=== PATIENT | female | born 1950 | race Caucasian/White ===

== ENCOUNTER → 2020-11-03 13:04 | Outpatient (BNV) | payer MEDICARE, MEDICAID, SELFPAY | PROVIDERS: PCP Hospitalist; Visit Provider Internal Medicine | DX: Z85.3 Personal history of malignant neoplasm of breast (principal) | CPT/HCPCS: 99212; 99213; 99214; G2211 ==

== ENCOUNTER → 2020-12-24 14:19 | Outpatient (BNVA) | payer MEDICARE, MEDICAID, SELFPAY | PROVIDERS: PCP Hospitalist; Visit Provider Surgery | DX: C50.912 Malignant neoplasm of unspecified site of left female breast (principal); N60.91 Unspecified benign mammary dysplasia of right breast | CPT/HCPCS: 99212 ==

== ENCOUNTER 2021-04-17 11:55 | Outpatient (REF) | payer MEDICARE, MEDICAID, SELFPAY ==
--- NOTE | ~2021-04-17 | MM_ITS ---
EXAMINATION: MM SCREENING DIGITAL BREAST TOMOSYNTHESIS, RIGHT CLINICAL INFORMATION: Left mastectomy for breast cancer 2016. History ADH right. Due for yearly. COMPARISON: Mammography: 04/11/2020, 10/31/2018, 10/27/2017 TECHNIQUE: Digital breast tomosynthesis is performed in both the craniocaudal and mediolateral oblique views along with computer-aided detection (CAD). Synthesized 2D images are generated from the tomosynthesis. Additional right MLO view is provided. FINDINGS: There are scattered areas of fibroglandular density (ACR BI-RADS breast composition Category b). There are no significant masses, abnormal calcifications, or other abnormalities. There are 3 biopsy clip markers again seen in the right breast central and inner quadrant. There are scattered benign calcifications. No developing density. The skin contours are smooth. No significant changes. MM/MM tomosynthesis screening RT IMPRESSION: No mammographic evidence of malignancy. ASSESSMENT: BI-RADS 2: Benign RECOMMENDATION: Routine annual mammography screening. This patient's information was entered into a reminder system with a target due date for their next mammogram.
== END 2021-04-17 11:56 | disposition home or self-care (01) ==
LOC: HO.MAMMO 11:55
PROVIDERS: PCP Hospitalist; Visit Provider Surgery
DX: Z12.31 Encounter for screening mammogram for malignant neoplasm of breast (principal); Z85.3 Personal history of malignant neoplasm of breast; Z90.12 Acquired absence of left breast and nipple
CPT/HCPCS: 77063; 77067

== ENCOUNTER 2021-04-22 11:20 | Outpatient (REF) | payer MEDICARE, MEDICAID, SELFPAY ==
[2021-04-22 13:32] LABS: MANUAL DIFF FLAG NO
[2021-04-22 13:34] LABS: Basophils Absolute Auto 0.1 X10*3/uL (0.0-0.2); Eosinophils Absolute Auto 0.4 X10*3/uL (0.0-0.4); Eosinophils Percent Auto 5.4 % (0-4); Hematocrit 43.8 % (37-47); Hemoglobin 14.2 g/dl (12.0-16.0); Imm Gran Abs Auto 0.02 X10*3/uL (0.00-0.03); Imm Gran Pct Auto 0.3 % (0.0-0.4); Lymphocytes Absolute Auto 1.7 X10*3/uL (1.2-4.9); Lymphocytes Percent Auto 25.6 % (20-40); Mean Corpuscular HGB Conc 32.4 g/dl (31.0-35.0); Mean Corpuscular Volume 89.6 fL (80-98); Monocytes Absolute Auto 0.7 X10*3/uL (0.1-1.2); Neutrophils Absolute Auto 3.9 X10*3/uL (2.0-8.3); Neutrophils Percent Auto 57.7 % (45-73); Platelet Count 327 X10*3/uL (160-400); Red Blood Count 4.89 X10*6/uL (4.20-5.50); Red Cell Distribution Width 13.3 % (11.0-16.0); White Blood Count 6.7 X10*3/uL (4.8-10.8)
[2021-04-22 13:57] LABS: Alanine Aminotransferase 19 U/L (0-31); Albumin Level 4.1 g/dL (3.5-5.0); Alkaline Phosphatase 102 U/L (39-117); Anion Gap 14 (12-20); Aspartate Amino Transferase 18 U/L (5-31); Bilirubin Total 0.4 mg/dL (0.0-1.0); Blood Urea Nitrogen 17 mg/dL (9-16); Calcium 9.4 mg/dL (8.4-10.2); Carbon Dioxide 24 mmol/L (22-29); Chloride 106 mmol/L (96-108); Estimated Glomerular Filt Rate 51; Glucose Random 287 mg/dL (60-115); Potassium 4.3 mmol/L (3.3-5.1); Sodium 140 mmol/L (135-145); Total Protein 6.3 g/dL (6.5-8.0)
[2021-04-22 14:19] LABS: TSH reflex Free T4 1.45 uIU/mL (0.32-4.0)
== END 2021-04-22 11:21 | disposition home or self-care (01) ==
LOC: HO.WFDLDS 11:20
PROVIDERS: Visit Provider Family Medicine
DX: Z00.00 Encounter for general adult medical examination without abnormal findings (principal); E11.9 Type 2 diabetes mellitus without complications; I10 Essential (primary) hypertension
CPT/HCPCS: 36415; 80053; 84443; 85025

== ENCOUNTER → 2021-06-25 13:34 | Outpatient (BNVA) | payer MEDICARE, MEDICAID, SELFPAY | PROVIDERS: PCP Family Medicine; Referring Provider Family Medicine; Visit Provider Surgery ==

== ENCOUNTER 2021-07-15 10:17 | Outpatient (REF) | payer MEDICARE, MEDICAID, SELFPAY ==
--- NOTE | ~2021-07-15 | MM_ITS ---
EXAMINATION: BONE DENSITOMETRY CLINICAL INDICATION: Osteopenia. COMPARISON: None (current study represents initial baseline exam). TECHNIQUE: Using a [employer] DXA System (software version: 13.1) manufactured by [employer], dual-energy x-ray absorptiometry was performed of the lumbar spine and left hip. The images are of good technical quality. Summary results are attached. FINDINGS: AP SPINE L1-L4: BMD 0.955 g/cm2, Z-score -1.0, T-score -1.9, osteopenia, 7.7% decrease from previous, 6.6% decrease from baseline (<5% change is not significant). Prior: BMD 1.035 g/cm2. Baseline: BMD 1.022 g/cm2. LEFT FEMUR, NECK: Current: BMD 0.864 g/cm2, Z-score 0.0, T-score -1.2, osteopenia. Prior: BMD 0.858 g/cm2. Baseline: BMD 0.940 g/cm2. LEFT FEMUR, TOTAL: Current: BMD 1.028 g/cm2, Z-score 1.1, T-score 0.2, normal, 2.1% decrease from previous, 4.5% decrease from baseline (<5% change is not significant). Prior: BMD 1.050 g/cm2. Baseline: BMD 1.076 g/cm2. IDENTIFIED RISK FACTORS: Height loss, history of fracture (adult). Early menopause, secondary osteoporosis. HISTORY OF FRACTURE: Humerus/shoulder. MEDICATIONS: Calcium supplements or multivitamin, vitamin D. MM/XR DEXA axial skeleton IMPRESSION: 1. DIAGNOSIS: Osteopenia based on the lowest T-score value of -1.9 in the lumbar spine applying World Health Organization criteria. 2. 10-YEAR FRACTURE RISK PREDICTION, FRAX: Major osteoporotic fracture (clinical spine, forearm, hip or shoulder) 13.7%. Hip fracture 1.6%. 3. Treatment Recommendations: NOF guidelines recommend consideration for treatment in postmenopausal women and men age 50 and older presenting with the following: -A hip or vertebral (clinical or morphometric) fracture. -T-score less than or equal to -2.5 at the femoral neck or spine after appropriate evaluation to exclude secondary causes. -Low bone mass at the hip or spine and a 10-year fracture probability by FRAX of greater than or equal to 3% for hip fracture or greater than or equal to 20% for major osteoporotic fracture based on the [place] adapted WHO algorithm. 4. Other Recommendations: All treatment decisions require clinical judgment and consideration of individual patient factors, including patient preferences, comorbidities, previous drug use, risk factors not captured in the FRAX model (e.g. frailty, falls, vitamin D deficiency, increased bone turnover, interval significant decline in bone density) and possible under or overestimation of fracture risk by FRAX. Additional medical evaluation for secondary cause of low bone mineral density may be appropriate. FUTURE SCAN RECOMMENDATION: People with diagnosed cases of osteoporosis or at high risk for fracture should have regular bone mineral density tests. For patients eligible for Medicare, routine testing is allowed once every 2 years. The testing frequency can be increased to one year for patients who have rapidly progressing disease, those who are receiving or discontinuing medical therapy to restore bone mass, or have additional risk factors.
== END 2021-07-15 10:18 | disposition home or self-care (01) ==
LOC: HO.MAMMO 10:17
PROVIDERS: PCP Hospitalist; Visit Provider Internal Medicine
DX: Z13.820 Encounter for screening for osteoporosis (principal); M85.80 Other specified disorders of bone density and structure, unspecified site; Z78.0 Asymptomatic menopausal state; Z87.81 Personal history of (healed) traumatic fracture; Z79.899 Other long term (current) drug therapy
CPT/HCPCS: 77080

== ENCOUNTER → 2021-08-06 12:39 | Outpatient (BNVA) | payer MEDICARE, MEDICAID, SELFPAY | PROVIDERS: PCP Family Medicine; Referring Provider Family Medicine; Visit Provider Surgery | DX: C50.912 Malignant neoplasm of unspecified site of left female breast (principal); N60.91 Unspecified benign mammary dysplasia of right breast | CPT/HCPCS: 99212 ==

== ENCOUNTER 2021-12-15 11:53 | Outpatient (REF) | payer MEDICARE, MEDICAID, SELFPAY ==
[2021-12-15 13:43] LABS: Estimated Average Glucose 189 mg/dL; Hemoglobin A1c % 8.2 %
== END 2021-12-15 11:54 | disposition home or self-care (01) ==
LOC: HO.WFDLDS 11:53
PROVIDERS: Visit Provider Hospitalist
DX: Z01.818 Encounter for other preprocedural examination (principal); E11.9 Type 2 diabetes mellitus without complications
CPT/HCPCS: 36415; 83036

== ENCOUNTER 2022-04-21 10:01 | Outpatient (REF) | payer MEDICARE, MEDICAID, SELFPAY ==
--- NOTE | ~2022-04-21 | MM_ITS ---
EXAMINATION: MM SCREENING DIGITAL BREAST TOMOSYNTHESIS, RIGHT CLINICAL INFORMATION: Left breast cancer status post mastectomy, 2016. History contralateral right ADH. COMPARISON: Mammography: 04/17/2021, 04/11/2020, 10/31/2018, 10/27/2017 TECHNIQUE: Digital breast tomosynthesis is performed in both the craniocaudal and mediolateral oblique views along with computer-aided detection (CAD). Synthesized 2D images are generated from the tomosynthesis. Additional right MLO view is provided. FINDINGS: There are scattered areas of fibroglandular density (ACR BI-RADS breast composition Category b). There are no significant masses, abnormal calcifications, or other abnormalities. Parenchymal pattern is similar to prior studies. There are 3 biopsy clip markers again seen in the right breast. The right axillary and skin contours are unremarkable. There are no significant changes. MM/MM tomosynthesis screening RT IMPRESSION: No mammographic evidence of malignancy. ASSESSMENT: BI-RADS 1: Negative RECOMMENDATION: Routine annual mammography screening. This patient's information was entered into a reminder system with a target due date for their next mammogram.
== END 2022-04-21 10:02 | disposition home or self-care (01) ==
LOC: HO.MAMMO 10:01
PROVIDERS: Absent Provider Surgery; Visit Provider Hospitalist
DX: Z12.31 Encounter for screening mammogram for malignant neoplasm of breast (principal)
CPT/HCPCS: 77063; 77067

== ENCOUNTER → 2022-05-14 10:09 | Outpatient (BNVA) | payer MEDICARE, MEDICAID, SELFPAY | PROVIDERS: PCP Hospitalist; Visit Provider Surgery | DX: Z85.3 Personal history of malignant neoplasm of breast (principal); K43.2 Incisional hernia without obstruction or gangrene; Z90.12 Acquired absence of left breast and nipple | CPT/HCPCS: 99212 ==

== ENCOUNTER 2022-05-21 07:58 | Outpatient (REF) | payer MEDICARE, MEDICAID, SELFPAY ==
--- NOTE | ~2022-05-21 | CT_ITS ---
EXAMINATION: CT ABDOMEN AND PELVIS WITHOUT CONTRAST CLINICAL INFORMATION: Incisional hernia without gangrene or obstruction COMPARISON: None TECHNIQUE: Multidetector volumetric imaging was performed from the superior aspect of the liver through the pubic symphysis. Sagittal and coronal reformatted images were obtained on the technologist's workstation. This CT examination was performed using dose optimization techniques as appropriate, variously including the following: *Automated exposure control *Adjustment of mA and/or kV according to patient size (this includes techniques or standardized protocols for targeted exams where dose is matched to indication/reason for exam; i.e. extremities or head) *Use of iterative reconstruction technique DLP: 716 mGy-cm FINDINGS: LUNG BASES: The visualized lung bases are unremarkable. LIVER, GALLBLADDER, AND BILIARY TREE: The liver is normal in size, shape, and attenuation. No focal hepatic lesion or biliary ductal dilatation is present. The gallbladder is unremarkable with no evidence of radiopaque gallstones, gallbladder wall thickening, or obvious pericholecystic inflammatory changes. PANCREAS: Unremarkable. SPLEEN: Unremarkable. ADRENAL GLANDS: Unremarkable. KIDNEYS AND URETERS: There is a small stone in the left kidney. Kidneys are otherwise normal. BLADDER: Unremarkable. GASTROINTESTINAL TRACT: There are small and large bowel in a large midline ventral hernia. There are postsurgical changes to the sigmoid colon. The small and large bowel are otherwise unremarkable. The appendix is unremarkable. ABDOMINAL WALL: There is diastasis of the rectus muscles and large broad-based midline ventral hernia containing multiple loops of small and large bowel and fat. This measures 22 x 9 x 13 cm in longitudinal AP and transverse dimension. This has a wide neck neck measures 13 cm. There is no evidence of obstruction. LYMPH NODES: Normal. VASCULAR: Unremarkable. PELVIC VISCERA: Unremarkable. OSSEOUS STRUCTURES: There are degenerative changes of the thoracic and lumbar spine and mild scoliosis. CT/CT abdomen pelvis wo con IMPRESSION: Large complex ventral hernia containing loops of small and large bowel. No evidence of obstruction. . Small nonobstructing right renal stone. Fleischner guidelines were followed.
[2022-05-21] MEDS: Barium Sulfate Oral (Vanilla) 450 ML ORAL.SUSP 900 ML PO (10:14)
== END 2022-05-21 07:59 | disposition home or self-care (01) ==
LOC: HO.CT 07:58
PROVIDERS: Visit Provider Surgery
DX: K43.2 Incisional hernia without obstruction or gangrene (principal)
CPT/HCPCS: 74176

== ENCOUNTER → 2022-05-26 08:50 | Outpatient (BNVA) | payer MEDICARE, MEDICAID, SELFPAY | PROVIDERS: PCP Hospitalist; Visit Provider Internal Medicine Rheumatology | DX: M19.079 Primary osteoarthritis, unspecified ankle and foot (principal); M79.641 Pain in right hand; M79.642 Pain in left hand; M25.50 Pain in unspecified joint | CPT/HCPCS: 99202 ==

== ENCOUNTER 2022-05-27 09:23 | Outpatient (REF) | payer MEDICARE, MEDICAID, SELFPAY ==
--- NOTE | ~2022-05-27 | XR_ITS ---
EXAMINATION: XR HAND, RIGHT XR HAND, LEFT XR FOOT, RIGHT XR FOOT, LEFT CLINICAL INFORMATION: Pain from arthritis. COMPARISON: 09/23/2017 TECHNIQUE: 3 views of the left hand, right hand, left foot, and right foot. FINDINGS: Left Hand: There is no evidence of acute fracture or dislocation of the left hand. There is some joint space narrowing seen involving the fifth proximal interphalangeal joint with sclerosis. There appears to be a small cyst within the distal first phalanx. There is degenerative change of the first carpal metacarpal joint with prominent spurring and some articular irregularity. The metacarpophalangeal joints are maintained. There is some mild spurring seen involving the second and third distal interphalangeal joints. Right Hand: There is some narrowing of the fifth proximal interphalangeal joint. No acute fracture or dislocation is evident. Right Foot: There is no evidence of acute fracture or dislocation of the right foot. No destructive bony lesions are identified. No erosive change is seen. There is a small plantar calcaneal spur. Left Foot: There is no evidence of acute fracture or dislocation of the left foot. There is severe degenerative change of the first metatarsophalangeal joint with loss of joint space and articular deformity and subchondral cyst formation. There is mild hallux valgus angulation. There is a plantar calcaneal spur present. XR/XR hand RT min 3V IMPRESSION: Mild degenerative change of the hands and right foot as described above. Significant degenerative change of the left first tarsometatarsal joint. Severe degenerative change with deformity involving the left first metatarsophalangeal joint.
--- NOTE | ~2022-05-27 | XR_ITS ---
EXAMINATION: XR HAND, RIGHT XR HAND, LEFT XR FOOT, RIGHT XR FOOT, LEFT CLINICAL INFORMATION: Pain from arthritis. COMPARISON: 09/23/2017 TECHNIQUE: 3 views of the left hand, right hand, left foot, and right foot. FINDINGS: Left Hand: There is no evidence of acute fracture or dislocation of the left hand. There is some joint space narrowing seen involving the fifth proximal interphalangeal joint with sclerosis. There appears to be a small cyst within the distal first phalanx. There is degenerative change of the first carpal metacarpal joint with prominent spurring and some articular irregularity. The metacarpophalangeal joints are maintained. There is some mild spurring seen involving the second and third distal interphalangeal joints. Right Hand: There is some narrowing of the fifth proximal interphalangeal joint. No acute fracture or dislocation is evident. Right Foot: There is no evidence of acute fracture or dislocation of the right foot. No destructive bony lesions are identified. No erosive change is seen. There is a small plantar calcaneal spur. Left Foot: There is no evidence of acute fracture or dislocation of the left foot. There is severe degenerative change of the first metatarsophalangeal joint with loss of joint space and articular deformity and subchondral cyst formation. There is mild hallux valgus angulation. There is a plantar calcaneal spur present. XR/XR hand LT min 3V IMPRESSION: Mild degenerative change of the hands and right foot as described above. Significant degenerative change of the left first tarsometatarsal joint. Severe degenerative change with deformity involving the left first metatarsophalangeal joint.
--- NOTE | ~2022-05-27 | XR_ITS ---
EXAMINATION: XR HAND, RIGHT XR HAND, LEFT XR FOOT, RIGHT XR FOOT, LEFT CLINICAL INFORMATION: Pain from arthritis. COMPARISON: 09/23/2017 TECHNIQUE: 3 views of the left hand, right hand, left foot, and right foot. FINDINGS: Left Hand: There is no evidence of acute fracture or dislocation of the left hand. There is some joint space narrowing seen involving the fifth proximal interphalangeal joint with sclerosis. There appears to be a small cyst within the distal first phalanx. There is degenerative change of the first carpal metacarpal joint with prominent spurring and some articular irregularity. The metacarpophalangeal joints are maintained. There is some mild spurring seen involving the second and third distal interphalangeal joints. Right Hand: There is some narrowing of the fifth proximal interphalangeal joint. No acute fracture or dislocation is evident. Right Foot: There is no evidence of acute fracture or dislocation of the right foot. No destructive bony lesions are identified. No erosive change is seen. There is a small plantar calcaneal spur. Left Foot: There is no evidence of acute fracture or dislocation of the left foot. There is severe degenerative change of the first metatarsophalangeal joint with loss of joint space and articular deformity and subchondral cyst formation. There is mild hallux valgus angulation. There is a plantar calcaneal spur present. XR/XR foot LT min 3V IMPRESSION: Mild degenerative change of the hands and right foot as described above. Significant degenerative change of the left first tarsometatarsal joint. Severe degenerative change with deformity involving the left first metatarsophalangeal joint.
--- NOTE | ~2022-05-27 | XR_ITS ---
EXAMINATION: XR HAND, RIGHT XR HAND, LEFT XR FOOT, RIGHT XR FOOT, LEFT CLINICAL INFORMATION: Pain from arthritis. COMPARISON: 09/23/2017 TECHNIQUE: 3 views of the left hand, right hand, left foot, and right foot. FINDINGS: Left Hand: There is no evidence of acute fracture or dislocation of the left hand. There is some joint space narrowing seen involving the fifth proximal interphalangeal joint with sclerosis. There appears to be a small cyst within the distal first phalanx. There is degenerative change of the first carpal metacarpal joint with prominent spurring and some articular irregularity. The metacarpophalangeal joints are maintained. There is some mild spurring seen involving the second and third distal interphalangeal joints. Right Hand: There is some narrowing of the fifth proximal interphalangeal joint. No acute fracture or dislocation is evident. Right Foot: There is no evidence of acute fracture or dislocation of the right foot. No destructive bony lesions are identified. No erosive change is seen. There is a small plantar calcaneal spur. Left Foot: There is no evidence of acute fracture or dislocation of the left foot. There is severe degenerative change of the first metatarsophalangeal joint with loss of joint space and articular deformity and subchondral cyst formation. There is mild hallux valgus angulation. There is a plantar calcaneal spur present. XR/XR foot RT min 3V IMPRESSION: Mild degenerative change of the hands and right foot as described above. Significant degenerative change of the left first tarsometatarsal joint. Severe degenerative change with deformity involving the left first metatarsophalangeal joint.
[2022-05-27 10:45] LABS: C Reactive Protein 0.61 mg/dL (< or = 0.50)
[2022-05-27 10:48] LABS: Uric Acid 4.3 mg/dL (2.4-5.7)
== END 2022-05-27 09:24 | disposition home or self-care (01) ==
LOC: HO.LAB 09:23
PROVIDERS: PCP Hospitalist; Visit Provider Internal Medicine Rheumatology
DX: M79.642 Pain in left hand (principal); M79.641 Pain in right hand; M19.071 Primary osteoarthritis, right ankle and foot; M19.072 Primary osteoarthritis, left ankle and foot
CPT/HCPCS: 36415; 73130; 73630; 84550; 86140; 99212

== ENCOUNTER → 2022-07-06 14:08 | Outpatient (BNVA) | payer MEDICARE, MEDICAID, SELFPAY | PROVIDERS: PCP Hospitalist; Visit Provider Internal Medicine | DX: Z01.818 Encounter for other preprocedural examination (principal) | CPT/HCPCS: 94010; 99202 ==

== ENCOUNTER 2023-03-25 05:35 | Observation (INO) | payer MEDICARE, MEDICAID, SELFPAY ==
[2023-03-25] VITALS (9 sets, daily range): BP systolic 113–141; BP diastolic 52–93; PULSE 69–89; RESP 15–18; TEMP 36.1–36.7; O2SAT 93–98; BMI 39.5
--- NOTE | ~2023-03-25 | CT_ITS ---
EXAMINATION: CT ABDOMEN AND PELVIS WITH CONTRAST CLINICAL INFORMATION: Left lower quadrant pain COMPARISON: 05/21/2022 TECHNIQUE: Multidetector volumetric images were obtained from the superior aspect of the liver through the pubic symphysis following administration 85 mL of Omnipaque 350 intravenous contrast. Sagittal and coronal reformatted images were obtained on the technologist's workstation. Oral contrast: No This CT examination was performed using dose optimization techniques as appropriate, variously including the following: *Automated exposure control *Adjustment of mA and/or kV according to patient size (this includes techniques or standardized protocols for targeted exams where dose is matched to indication/reason for exam; i.e. extremities or head) *Use of iterative reconstruction technique DLP: 645 mGy-cm FINDINGS: LUNG BASES: The visualized lung bases are unremarkable. LIVER, GALLBLADDER, AND BILIARY TREE: The liver is normal in size, shape, and attenuation. No focal hepatic lesion or biliary ductal dilatation is present. The gallbladder is unremarkable with no evidence of radiopaque gallstones, gallbladder wall thickening, or obvious pericholecystic inflammatory changes. PANCREAS: Unremarkable. SPLEEN: Unremarkable. ADRENAL GLANDS: Unremarkable. KIDNEYS AND URETERS: There is punctate calcification in upper pole of but no hydronephrosis or mass is seen. The right kidney is unremarkable. Collecting system of left kidney BLADDER: Unremarkable. GASTROINTESTINAL TRACT: There is small hiatal hernia. There is large amount of liquid stool in the colon particularly resulting in diarrhea. Small bowel loops are mildly distended by fluid as well. There is no wall thickening. There is large ventral hernia with herniation of significant amount of small bowel loops without incarceration. There is dehiscence of rectus muscle with multiple herniations along the midline. Appendix is unremarkable and lower abdominal wall hernia contain fat only. Sigmoidal anastomosis is unremarkable. LYMPH NODES: Normal. VASCULAR: Unremarkable. PELVIC VISCERA: Calcifications seen in otherwise unremarkable uterus. Bilateral adnexa are visualized, normal. OSSEOUS STRUCTURES: There are multilevel degenerative changes in lumbar spine and lower thoracic spine. There is mild levoscoliosis of lumbar spine CT/CT abdomen pelvis w IV con IMPRESSION: Large ventral hernia with herniation of small bowel loops without incarceration. Possibly enterocolitis with large amount of liquid stool in the colon and small bowel Small hiatal hernia Left nephrolithiasis Fleischner guidelines were followed.
[2023-03-25 06:08] LABS: MANUAL DIFF FLAG NO
[2023-03-25 06:29] LABS: Basophils Percent Auto 0.4 % (0-2); Eosinophils Absolute Auto 0.1 X10*3/uL (0.0-0.4); Eosinophils Percent Auto 0.6 % (0-4); Hematocrit 46.1 % (37.0-47.0); Hemoglobin 15.5 g/dl (12.0-16.0); Imm Gran Abs Auto 0.12 X10*3/uL (0.00-0.03); Imm Gran Pct Auto 1.2 % (0.0-0.4); Lymphocytes Absolute Auto 0.6 X10*3/uL (1.2-4.9); Lymphocytes Percent Auto 6.6 % (20-40); Mean Corpuscular HGB Conc 33.6 g/dl (31.0-35.0); Mean Corpuscular Hemoglobin 29.8 pg (27.0-33.0); Mean Corpuscular Volume 88.5 fL (80.0-98.0); Mean Platelet Volume 9.8 fL (9.4-12.3); Monocytes Absolute Auto 0.8 X10*3/uL (0.1-1.2); Monocytes Percent Auto 8.5 % (2-11); Neutrophils Absolute Auto 8.1 x10*3/uL (2.0-8.3); Neutrophils Percent Auto 82.7 % (45-73); Platelet Count 370 X10*3/uL (160-400); Red Blood Count 5.21 X10*6/uL (4.20-5.50); Red Cell Distribution Width 13.8 % (11.0-16.0); White Blood Count 9.8 X10*3/uL (4.8-10.8)
[2023-03-25 06:42] LABS: Alanine Aminotransferase 20 U/L (0-31); Albumin Level 3.9 g/dL (3.5-5.0); Alkaline Phosphatase 60 U/L (39-117); Anion Gap 16 (12-20); Aspartate Amino Transferase 21 U/L (5-31); Bilirubin Direct 0.2 mg/dL (0.0-0.5); Bilirubin Total 0.4 mg/dL (0.0-1.0); Blood Urea Nitrogen 19 mg/dL (9-16); Calcium 9.1 mg/dL (8.4-10.2); Carbon Dioxide 20 mmol/L (22-29); Chloride 109 mmol/L (96-108); Creatinine Clr Calc Pharmacy 72.9; Estimated Glomerular Filt Rate > 60; Glucose Random 148 mg/dL (60-115); Lipase 7 U/L (8-78); Potassium 3.6 mmol/L (3.3-5.1); Sodium 141 mmol/L (135-145); Total Protein 6.3 g/dL (6.5-8.0)
[2023-03-25] MEDS: 0.9 % Sodium Chloride 1,000 ML 999 ML IV ×2 (06:50→09:01)
[2023-03-25] MEDS: ondansetron HCL 4 MG/2 ML VIAL IVPUSH (06:51)
--- NOTE | 2023-03-25 06:51 | ED.GENADULT ---
HPI - General Adult General Chief complaint: Nausea/Vomiting/Diarrhea Stated complaint: Vomiting Time Seen by Provider: 03/25/23 06:39 Source: patient Mode of arrival: ambulatory Limitations: no limitations History of Present Illness HPI narrative: This is a 72-year-old female presenting to the emergency department for evaluation nausea, vomiting, diarrhea, left lower quadrant abdominal pain, fever, chills since Tuesday, 3 days ago. Patient tells me she has not been able to eat or drink anything each time she tries to eat or drink she throws up or has an episode of diarrhea. Patient tells me she is worried because she is a diabetic. Related Data Home Medications Medication Instructions Recorded Confirmed escitalopram oxalate 20 mg tablet 20 mg PO DAILY 08/27/20 05/26/22 (Lexapro) bupropion HCl 300 mg 24 hr tablet, 300 mg PO DAILY 12/24/20 05/26/22 extended release quetiapine 300 mg tablet,extended 300 mg PO BEDTIME 04/22/21 05/26/22 release 24 hr erythromycin 5 mg/gram (0.5 %) eye 0 mg ophthalmic (eye) 04/08/22 05/26/22 ointment Previous Rx's Medication Instructions Recorded buspirone 10 mg tablet 20 mg PO BID #120 tabs 08/11/20 vitamins A,C,E-uinm-juliue 4,296 1 cap PO BID #60 caps 08/11/20 mcg-226 mg-90 mg capsule (PreserVision AREDS) latanoprost 0.005 % eye drops 1 drp ophthalmic (eye) BEDTIME 08/14/21 #2.5 mL inhalational spacing device #1 ea 10/05/21 (Aerochamber MV spacer) blood pressure test kit-large #1 ea 10/12/21 (Advocate Blood Pressure Monitor kit) blood sugar diagnostic (FreeStyle #100 ea 04/04/22 Lite Strips) amlodipine 2.5 mg tablet 2.5 mg PO DAILY 3 months #90 tabs 05/19/22 lancets 28 gauge (FreeStyle ##100 05/19/22 Lancets) levothyroxine 50 mcg tablet 50 mcg PO DAILY #90 tabs 05/19/22 pen needle, diabetic 31 gauge x See Rx Instructions subcut BID-TID 05/19/2202/22 (BD Ultra-Fine Short Pen #100 ea Needle) rosuvastatin 20 mg tablet 20 mg PO DAILY #90 tabs 10/05/22 insulin glargine 100 unit/mL (3 10 unit (0.1 mL) subcut DAILY 3 11/29/22 mL) subcutaneous pen (Lantus months #9 mL Solostar U-100 Insulin) Basaglar KwikPen U-100 Insulin 100 34 unit (0.34 mL) subcut QPM 3 11/30/22 unit/mL (3 mL) subcutaneous months #15 mL (insulin glargine) Ventolin HFA 90 mcg/actuation 1 puff PO Q4H PRN for wheezing #18 12/09/22 aerosol inhaler (albuterol sulfate) grams fenofibrate 160 mg tablet 160 mg PO DAILY #90 tabs 12/20/22 repaglinide 2 mg tablet 2 mg PO BID #180 tabs 01/19/23 omeprazole 40 mg capsule,delayed 40 mg PO DAILY #42 caps 03/01/23 release Allergies Allergy/AdvReac Type Severity Reaction Status Date / Time ether [ETHER] Allergy Severe DIFFICULT Verified 11/29/22 10:07 EMERGENCE ANESTHESIA codeine [CODEINE] Allergy Intermediate VOMITING Verified 11/29/22 10:07 Review of Systems Review of Systems: Constitutional : No Weight loss, + Fever, + Chills, + Fatigue, + Malaise ENT/Mouth : No sore throat, No Rhinorrhea Eyes: No Eye Pain, No Swelling, No Redness Cardiovascular : No Chest Pain, No SOB, No Dyspnea on Exertion, No Orthopnea, No Edema, No Palpitations Respiratory : No Cough, No Sputum, No Wheezing Gastrointestinal : + Nausea, + Vomiting, + Diarrhea, No Constipation, + abdominal Pain, No Hematochezia, No Melena Genitourinary : No Dysuria, No Urinary Frequency, No Hematuria, Musculoskeletal : No joint pain, No Myalgias, No Joint Swelling Skin : No Skin Lesions, No rash Neuro : No Weakness, No Numbness, No Dizziness, No Headache Psych : No Anxiety/Panic, No Depression All other systems reviewed and are negative Yes all other systems are reviewed and are negative PMFSH Past Medical History Attestation statement: The following information was validated with the patient. Source: old records reviewed and nursing notes reviewed Medical History Cataract, right eye Dyspnea on exertion Pre-op evaluation Primary generalized (osteo)arthritis Tubular adenoma of colon Surgical History History of section History of mastectomy S/P colon resection Family History Family History Father No problems noted. Mother No problems noted. Social History Social History Household Members: Children [facility] Are you a primary early breastfeeding care specialist to a significant other at home: No Do you presently have visiting nurse or other home services: No Patient Tobacco Use Status: Never used Tobacco Smoked in Last 30 Days: No e-Cigarette/Vaping Use: Never Used Second Hand Smoke Exposure: No Use of substances other than those prescribed or required for medical reasons: No Advance Directives: No Advance Directives Information Provided: No service: No Current occupational status: retired Current occupation: Medical billing Current occupational exposures/hazards: No Cognitive needs: No Hearing needs: No Vision needs: No Physical Exam ED Vital Signs: Vital Signs - 24 hr 03/25/23 05:39 03/25/23 07:25 03/25/23 09:02 Temperature 97.9 F Pulse Rate 89 72 72 Respiratory Rate 18 18 17 Blood Pressure 141/93 H 126/60 113/88 Pulse Oximetry 97 98 97 Oxygen Delivery Method Room Air Room Air Room Air BMI result Body Mass Index 39.5 vss Appearance: Alert.? Oriented X3.? No acute distress.? Head: Normocephalic, atraumatic, no step-offs or deformities Eyes: Pupils equal, round and reactive to light.? Neck: Normal inspection.? Neck supple.? CVS: Normal heart rate and rhythm.? Pulses normal.? Respiratory: No respiratory distress.? Breath sounds normal.? Abdomen: Soft and nontender.? Skin: Skin warm and dry.? Normal skin color.? Normal skin turgor.? Extremities: No lower extremity edema.? No calf ttp. 5/5 strength to bilateral upper and lower extremities Neuro: Oriented X 3.? No motor deficit.? No sensory deficit. CN 2-12 intact Course Reevaluation(s) Reevaluation #1: CBC appears to be within normal limits. Chemistry with elevated BUN likely secondary to poor p.o. intake. Random glucose 148, normal lipase. Beta hydroxybutyrate pending, VBG normal unlikely that this is DKA. CT of the abdomen pelvis with large ventral hernia with herniation of small bowel loops without incarceration, no tenderness to palpation overlying this area, low suspicion for incarceration. Possible enterocolitis with large amount of liquid stool in the colon and small bowel. Stool studies pending, patient has not given us a stool sample, metronidazole ordered. Small hiatal hernia noted. Left nephrolithiasis. No signs of acute pyelonephritis. Urine pending, straight cath ordered. Patient not tolerating p.o., she did have crackers however front nauseous and required Zofran afterwards. Receiving IV hydration, plan is for hospital admission. Time: 10:12 Medications Administered Generic Name Dose Route Start Last Admin Trade Name Freq PRN Reason Stop Dose Admin Metronidazole 500 mg in 100 mls @ 100 mls/hr 03/25/23 09:21 03/25/23 09:30 Flagyl IV 03/25/23 10:20 100 mls/hr ONCE ONE Administration Discontinued Medications Generic Name Dose Route Start Last Admin Trade Name Freq PRN Reason Stop Dose Admin Sodium Chloride 1,000 mls @ 999 mls/hr 03/25/23 06:45 03/25/23 07:55 Ns IV 03/25/23 07:45 Infused .Q1H1M MEKA Infusion Sodium Chloride 1,000 mls @ 999 mls/hr 03/25/23 09:00 03/25/23 09:01 Ns IV 03/25/23 10:00 999 mls/hr .Q1H1M MEKA Administration Iohexol 85 ml 03/25/23 07:33 03/25/23 07:34 Iohexol 350 Mg/Ml 100 Ml Infus..Btl IV 03/25/23 07:34 85 ml ONCE ONE Administration Metoclopramide HCl 10 mg 03/25/23 09:26 03/25/23 09:32 Metoclopramide Hcl 10 Mg/2 Ml Vial IVPUSH 03/25/23 09:27 10 mg ONCE ONE Administration Ondansetron HCl 4 mg 03/25/23 06:45 03/25/23 06:51 Ondansetron Hcl 4 Mg/2 Ml Vial IVPUSH 03/25/23 06:46 4 mg ONCE ONE Administration Medical Decision Making Medical Decision Making [facility] Narrative: 1855 72-year-old female presents with nausea, vomiting, diarrhea, fevers, chills, left lower quadrant abdominal pain since Tuesday, 3 days ago. Patient diabetic Physical exam of left lower quadrant tenderness on palpation. Likely viral illness however will rule out diverticulitis. Unlikely diabetic ketoacidosis, acute abdomen, small or large bowel obstruction, mesenteric ischemia. Diarrhea likely viral unlikely Clostridium difficile Plan- labs, imaging, urine. Will give fluids, Zofran. Differential Diagnosis Differential Diagnoses: The differential diagnosis associated with the presentation includes Likely viral illness however will rule out diverticulitis. Unlikely diabetic ketoacidosis, acute abdomen, small or large bowel obstruction, mesenteric ischemia. Diarrhea likely viral unlikely Clostridium difficile Admission/Observation Consideration of admission/observation: Escalation of care including admission/observation considered unlikely Lab Data [facility] Lab Attestation statement: I reviewed the patient's lab results. 03/25/23 05:58 03/25/23 06:21 Labs: Lab Results 03/25/23 03/25/23 03/25/23 Range/Units 05:58 06:21 07:02 WBC 9.8 (4.8-10.8) X10*3/uL RBC 5.21 (4.20-5.50) X10*6/uL Hgb 15.5 (12.0-16.0) g/dl Hct 46.1 (37.0-47.0) % MCV 88.5 (80.0-98.0) fL MCH 29.8 (27.0-33.0) pg MCHC 33.6 (31.0-35.0) g/dl RDW 13.8 (11.0-16.0) % Plt Count 370 (160-400) X10*3/uL MPV 9.8 (9.4-12.3) fL Immature Gran % (Auto) 1.2 H (0.0-0.4) % Neut % (Auto) 82.7 H (45-73) % Lymph % (Auto) 6.6 L (20-40) % [place] % (Auto) 8.5 (2-11) % Eos % (Auto) 0.6 (0-4) % Baso % (Auto) 0.4 (0-2) % Lymph # (Auto) 0.6 L (1.2-4.9) X10*3/uL [place] # (Auto) 0.8 (0.1-1.2) X10*3/uL Eos # (Auto) 0.1 (0.0-0.4) X10*3/uL Baso # (Auto) 0.0 (0.0-0.2) X10*3/uL Abs Immat Gran (auto) 0.12 H (0.00-0.03) X10*3/uL Absolute Neuts (auto) 8.1 (2.0-8.3) x10*3/uL Absolute Nucleated RBC 0.000 (0.0-0.012) X10*3/uL Nucleated RBC % (auto) 0.0 (0.0-0.2) /100WBC VBG pH (7.32-7.43) VBG pCO2 mmHg VBG pO2 mmHg VBG HCO3 (22-26) mmol/L VBG O2 Saturation % VBG Base Excess mmol/L Sodium 141 (135-145) mmol/L Potassium 3.6 (3.3-5.1) mmol/L Chloride 109 H (96-108) mmol/L Carbon Dioxide 20 L (22-29) mmol/L Anion Gap 16 (12-20) BUN 19 H (9-16) mg/dL Creatinine 0.82 (0.5-1.4) mg/dL Estim Creat Clear Calc 72.9 Estimated GFR > 60 Random Glucose 148 H (60-115) mg/dL Lactic Acid 1.6 (0.5-2.0) mmol/L Calcium 9.1 (8.4-10.2) mg/dL Total Bilirubin 0.4 (0.0-1.0) mg/dL Direct Bilirubin 0.2 (0.0-0.5) mg/dL AST 21 (5-31) U/L ALT 20 (0-31) U/L Alkaline Phosphatase 60 (39-117) U/L Total Protein 6.3 L (6.5-8.0) g/dL Albumin 3.9 (3.5-5.0) g/dL Lipase 7 L (8-78) U/L 06/16/23 Range/Units 07:46 WBC (4.8-10.8) X10*3/uL RBC (4.20-5.50) X10*6/uL Hgb (12.0-16.0) g/dl Hct (37.0-47.0) % MCV (80.0-98.0) fL MCH (27.0-33.0) pg MCHC (31.0-35.0) g/dl RDW (11.0-16.0) % Plt Count (160-400) X10*3/uL MPV (9.4-12.3) fL Immature Gran % (Auto) (0.0-0.4) % Neut % (Auto) (45-73) % Lymph % (Auto) (20-40) % [place] % (Auto) (2-11) % Eos % (Auto) (0-4) % Baso % (Auto) (0-2) % Lymph # (Auto) (1.2-4.9) X10*3/uL [place] # (Auto) (0.1-1.2) X10*3/uL Eos # (Auto) (0.0-0.4) X10*3/uL Baso # (Auto) (0.0-0.2) X10*3/uL Abs Immat Gran (auto) (0.00-0.03) X10*3/uL Absolute Neuts (auto) (2.0-8.3) x10*3/uL Absolute Nucleated RBC (0.0-0.012) X10*3/uL Nucleated RBC % (auto) (0.0-0.2) /100WBC VBG pH 7.33 (7.32-7.43) VBG pCO2 49 mmHg VBG pO2 25 mmHg VBG HCO3 26 (22-26) mmol/L VBG O2 Saturation < 30.0 % VBG Base Excess 0.4 mmol/L Sodium (135-145) mmol/L Potassium (3.3-5.1) mmol/L Chloride (96-108) mmol/L Carbon Dioxide (22-29) mmol/L Anion Gap (12-20) BUN (9-16) mg/dL Creatinine (0.5-1.4) mg/dL Estim Creat Clear Calc Estimated GFR Random Glucose (60-115) mg/dL Lactic Acid (0.5-2.0) mmol/L Calcium (8.4-10.2) mg/dL Total Bilirubin (0.0-1.0) mg/dL Direct Bilirubin (0.0-0.5) mg/dL AST (5-31) U/L ALT (0-31) U/L Alkaline Phosphatase (39-117) U/L Total Protein (6.5-8.0) g/dL Albumin (3.5-5.0) g/dL Lipase (8-78) U/L Independent Interpretation I performed an independent interpretation of an: CT Scan Radiology Impression Discussion of test interpretation with radiology: I have reviewed the radiologist's reading. Core Measures AMI core measures followed: Yes Measure exclusions: not indicated Critical Care Time Critical Care Time Critical Care Time: No Discharge Plan Discharge Clinical Impression: Diarrhea, Enterocolitis, Ventral hernia Patient Disposition: Still a Patient Prescriptions: No Action PreserVision AREDS [id number] capsule 1 cap PO BID Qty: 60 0RF buspirone 10 mg tablet 20 mg PO BID Qty: 120 0RF latanoprost 0.005 % drops 1 drp ophthalmic (eye) BEDTIME Qty: 2.5 3RF (DME) Aerochamber MV Spacer See Rx Instructions .Route Qty: 1 0RF Rx Instructions: As directed (DME) FreeStyle Lite Strips Strip See Rx Instructions .ROUTE .MEDSUPPLY Qty: 100 12RF Rx Instructions: As directed to test blood glucose 3x daily (DME) lancets [FreeStyle Lancets] 28 gauge misc See Rx Instructions .ROUTE .COMPLEX Qty: 100 11RF Dose Instruction: USE DIRECTED 3 TIMES A DAY Rx Instructions: USE DIRECTED 3 TIMES A DAY levothyroxine 50 mcg tablet 50 mcg PO DAILY Qty: 90 1RF pen needle, diabetic [BD Ultra-Fine Short Pen Needle] 31 gauge x 5/16 needle See Rx Instructions subcut BID-TID Qty: 100 11RF Rx Instructions: subcut 2 to 3 times a day; amlodipine 2.5 mg tablet 2.5 mg PO DAILY 90 Days Qty: 90 3RF rosuvastatin 20 mg tablet 20 mg PO DAILY Qty: 90 2RF insulin glargine [Lantus Solostar U-100 Insulin] 100 unit/mL (3 mL) insulin pen 10 unit subcut DAILY 90 Days Qty: 9 2RF insulin glargine [Basaglar KwikPen U-100 Insulin] 100 unit/mL (3 mL) insulin pen 34 unit subcut QPM 90 Days Qty: 15 3RF albuterol sulfate [Ventolin HFA] 90 mcg/actuation HFA aerosol inhaler 1 puff PO Q4H PRN (Reason: for wheezing) Qty: 18 5RF fenofibrate 160 mg tablet 160 mg PO DAILY Qty: 90 1RF repaglinide 2 mg tablet 2 mg PO BID Qty: 180 1RF omeprazole 40 mg capsule,delayed release(DR/EC) 40 mg PO DAILY Qty: 42 3RF escitalopram oxalate [Lexapro] 20 mg tablet 20 mg PO DAILY quetiapine 300 mg tablet extended release 24 hr 300 mg PO BEDTIME (DME) blood pressure test kit-large [Advocate Blood Pressure Monitr] Kit See Rx Instructions .Route Qty: 1 0RF Rx Instructions: As directed erythromycin 5 mg/gram (0.5 %) ointment 0 mg ophthalmic (eye) bupropion HCl 300 mg tablet extended release 24 hr 300 mg PO DAILY
[2023-03-25 07:26] LABS: Lactic Acid 1.6 mmol/L (0.5-2.0)
[2023-03-25] MEDS: iohexoL 350 MG/ML 100 ML INFUS..BTL 85 ML IV (07:34)
[2023-03-25 07:54] LABS: Venous Blood Gas Refer to POC result
[2023-03-25 07:54] LABS: VBG Base Excess 0.4 mmol/L; VBG HCO3 26 mmol/L (22-26); VBG O2 % Saturation < 30.0 %; VBG pCO2 49 mmHg; VBG pH 7.33 (7.32-7.43); VBG pO2 25 mmHg
[2023-03-25 08:06] LABS: Beta-Hydroxybutyrate 0.16 mmol/L (0.02-0.027)
[2023-03-25] MEDS: metroNIDAZOLE/NS 500 MG/100 ML PIGGYBACK 100 MG IV (09:30)
[2023-03-25] MEDS: Metoclopramide HCl 10 MG/2 ML VIAL IVPUSH (09:32)
--- NOTE | 2023-03-25 11:11 | PM.IMHP ---
History of Present Illness Date of Service: 03/25/23 Attending physician on admission: César Tolbert Chief Complaint: Nausea, vomiting, diarrhea Pt is a 72-year-old female with a PMH significant for? HLD, HTN, GERD, hypothyroidism, insulin-dependent diabetes, hx of invasive ductal carcinoma of left breast, bipolar disorder, and ruptured colon in 2001 with 3-foot resection who presents to the ED with?nausea, vomiting, and diarrhea x3 days. Pt says she began experiencing nausea and diarrhea on Tuesday night. On Tuesday patient went to a barbecue during the day and ate has normal, but upon returning home had recurrent episodes of nausea, vomiting, diarrhea. On patient was unable to tolerate any p.o. intake; even small sips of water with caused her to vomit it back up. No substantial fever or chills. No abdominal pain, just an occasional discomfort that felt like a pinching from the inside on her left side. In total, pt says experienced 6+ episodes of diarrhea, with last episode last night. Patient states she is no longer experiencing nausea after last anti-emetic and was able to tolerate some crackers and water. No chest pain/pressure palpitations. Denies shortness of breath. Of note, patient has a significant abdominal history. She notes in 2001 after another bur acute she experienced a ?ruptured colon? that required an emergent 3-foot surgical resection of her colon. Prior to that pt had an emergent . Both surgeries used the same midline incision, and likely weakened her abdominal muscles. Pt subsequently has experienced a large ventral hernia and multiple smaller midline hernias. Originally followed by Dr. Lindo and then by specialists at [facility]. Pt is not a candidate for elective surgical repair as it would be a very long surgery with likely little benefit; she has been told surgery will only be performed if her bowels become strangulated. In the ED patient was afebrile and slightly soft at 117/52. Labs were largely unremarkable, significant for random glucose of 140. No leukocytosis. Hemodynamically stable. VBG WNL. Electrolytes WNL. Renal function baseline. Hepatic function baseline. Lipase 7. Lactic acid WNL at 1.6. Stool samples have not yet been collected. CT?of abdomen and pelvis showed large ventral hernia with herniation of small bowel loops without incarceration, and dehiscence of rectus muscle with multiple herniations along the midline. Possible enterocolitis with large amount of liquid stool in the colon and small bowel, but no wall thickening. CT also found small hiatal hernia and left nephrolithiasis without hydronephrosis. Pt was treated with IVF, dense drawn, metronidazole, metoclopramide. Pt will be admitted to the hospital under observation for treatment further evaluation of possible gastroparesis versus gastroenteritis. Review of Systems Review of Systems: Nausea, vomiting Diarrhea Anorexia, reduced p.o. intake Denies fever, chills, abdominal pain No chest pain/pressure, palpitations Denies shortness of breath Yes all other systems are reviewed and are negative [facility] Medical History Cataract, right eye Dyspnea on exertion Pre-op evaluation Primary generalized (osteo)arthritis Tubular adenoma of colon Family History Father No problems noted. Mother No problems noted. Surgical History History of section History of mastectomy S/P colon resection Social History Household Members: Family Housing: Condominium Are you a primary health care marketing manager to a significant other at home: No Do you presently have visiting nurse or other home services: No Patient Tobacco Use Status: Never used Tobacco Smoked in Last 30 Days: No e-Cigarette/Vaping Use: Never Used Second Hand Smoke Exposure: No Use of substances other than those prescribed or required for medical reasons: No Currently Displaying Signs/Symptoms of Drug Intoxication Withdrawal: No Have you been hit, kicked, punched, or otherwise hurt by someone within the past year? If so, by whom?: No Do you feel safe in your current relationship?: No Current Relationship Is there a partner from a previous relationship who is making you feel unsafe now?: No Are you made to feel afraid or neglected: No Advance Directives: No Advance Directives Information Provided: No Do you have thoughts of harming others: None Do you have a plan to hurt others: No Plan Recently lost weight without trying: No Eating poorly because of decreased appetite: Yes Nutrition Risks: No Nutritional Risk Patient : No : No Poor oral hygiene: No service: No Current occupational status: retired Current occupation: Medical billing Current occupational exposures/hazards: No Cognitive needs: No Hearing needs: No Vision needs: No Meds Allergies Allergy/AdvReac Type Severity Reaction Status Date / Time ether [ETHER] Allergy Severe DIFFICULT Verified 11/29/22 10:07 EMERGENCE ANESTHESIA codeine [CODEINE] Allergy Intermediate VOMITING Verified 11/29/22 10:07 Active Medications: Current Medications Pharmacy Consult (Consult Rx Perform Med Rec) 1 each MISCELLANE ONCE PRN PRN Reason: Consult order Home Medications Medication Instructions Recorded Confirmed Last Taken Type escitalopram oxalate 20 mg tablet 20 mg PO DAILY 08/27/20 03/25/23 Unknown History (Lexapro) bupropion HCl 300 mg 24 hr tablet, 300 mg PO DAILY 12/24/20 03/25/23 Unknown History extended release quetiapine 300 mg tablet,extended 300 mg PO BEDTIME 04/22/21 03/25/23 Unknown History release 24 hr albuterol sulfate 90 mcg/actuation 1 puff inhalation Q4H PRN wheezing 03/25/23 03/25/23 Unknown History aerosol inhaler (Ventolin HFA) insulin glargine 100 unit/mL (3 34 unit subcut BEDTIME 03/25/23 03/25/23 Unknown History mL) subcutaneous pen (Basaglar KwikPen U-100 Insulin) Physical Exam Vital Signs and Narrative: Vital Signs: Last Vital Signs Temp 97.9 F 03/25/23 05:39 Pulse 84 03/25/23 10:45 Resp 17 03/25/23 09:02 BP 117/56 L 03/25/23 10:45 Pulse Ox 97 03/25/23 09:02 O2 Del Method Room Air 03/25/23 09:02 BMI result Body Mass Index 39.5 Constitutional: Alert, in no acute distress. Mental Status: Oriented to person, place and time. Eyes: Pupils are equal, round, and reactive to light. Ear, Nose, and Throat: Oropharynx clear, mucous membranes moist. Ears and nose without deformities. Trachea midline. Poor dentition. Respiratory: Clear to auscultation bilaterally. No wheezing, rales, or rhonchi. Cardiovascular: S1, S2 regular. No murmurs, rubs, or gallops. Gastrointestinal: Abdomen soft, non-tender, non-distended. Large ventral hernia, reducible, non-tender. Smaller ventral hernia immediately superior, reducible, non-tender. Normal bowel sounds. Neurologic: Cranial nerves II-XII are grossly intact bilaterally. No focal neurological deficits. Moves all extremities spontaneously. Skin: No rashes or lesions noted. Musculoskeletal: No cyanosis or clubbing. Extremities: No edema. Psychiatric: Normal mood and affect. Results Labs 03/25/23 05:58 03/25/23 06:21 Labs: Laboratory Results - last 24 hr 03/25/23 03/25/23 03/25/23 05:58 06:21 07:02 MCV 88.5 MCH 29.8 MCHC 33.6 RDW 13.8 Plt Count 370 MPV 9.8 Immature Gran % (Auto) 1.2 H Neut % (Auto) 82.7 H Lymph % (Auto) 6.6 L Grimes % (Auto) 8.5 Eos % (Auto) 0.6 Baso % (Auto) 0.4 Lymph # (Auto) 0.6 L Grimes # (Auto) 0.8 Eos # (Auto) 0.1 Baso # (Auto) 0.0 Abs Immat Gran (auto) 0.12 H Absolute Neuts (auto) 8.1 Absolute Nucleated RBC 0.000 Nucleated RBC % (auto) 0.0 VBG pH VBG pCO2 VBG pO2 VBG HCO3 VBG O2 Saturation VBG Base Excess Anion Gap 16 Estim Creat Clear Calc 72.9 Estimated GFR > 60 Random Glucose 148 H Lactic Acid 1.6 Calcium 9.1 Total Bilirubin 0.4 Direct Bilirubin 0.2 AST 21 ALT 20 Alkaline Phosphatase 60 Total Protein 6.3 L Albumin 3.9 Lipase 7 L 03/25/23 07:46 MCV MCH MCHC RDW Plt Count MPV Immature Gran % (Auto) Neut % (Auto) Lymph % (Auto) Grimes % (Auto) Eos % (Auto) Baso % (Auto) Lymph # (Auto) Grimes # (Auto) Eos # (Auto) Baso # (Auto) Abs Immat Gran (auto) Absolute Neuts (auto) Absolute Nucleated RBC Nucleated RBC % (auto) VBG pH 7.33 VBG pCO2 49 VBG pO2 25 VBG HCO3 26 VBG O2 Saturation < 30.0 VBG Base Excess 0.4 Anion Gap Estim Creat Clear Calc Estimated GFR Random Glucose Lactic Acid Calcium Total Bilirubin Direct Bilirubin AST ALT Alkaline Phosphatase Total Protein Albumin Lipase Imaging Radiologist's Impressions: Impressions Abdomen/Pelvis CT 03/25/23 07:22 IMPRESSION: Large ventral hernia with herniation of small bowel loops without incarceration. Possibly enterocolitis with large amount of liquid stool in the colon and small bowel Small hiatal hernia Left nephrolithiasis Fleischner guidelines were followed. Assessment and Plan (1) Diarrhea: Status: Acute (2) Ventral hernia: Status: Acute (3) Nausea & vomiting: Status: Acute Plan Pt is a 72-year-old female with a PMH significant for? HLD, HTN, GERD, hypothyroidism, insulin-dependent diabetes, hx of invasive ductal carcinoma of left breast, bipolar disorder, and ruptured colon in 2001 with 3-foot resection who presents to the ED with?nausea, vomiting, and diarrhea x3 days. Pt will be admitted to the hospital under observation for treatment further evaluation of possible gastroparesis versus gastroenteritis. Nausea, vomiting, diarrhea CT showing multiple ventral hernias without strangulation, possible enterocolitis with liquid stool in colon small bowel but no bowel wall thickening Patient afebrile, no abdominal pain, no leukocytosis, labs largely unremarkable Etiology unclear: Gastroparesis versus gastroenteritis Patient received 2 L of IVF in the ED Patient received ondansetron, metoclopramide, and metronidazole in ED Will hold on additional antibiotics at this time Check GI panel, C-diff, beta hydroxybutyrate Antiemetics p.r.n. Clear liquid diet for now, advance as tolerated Follow BMP Ventral and midline hernia Pt with hx of hernias for past 5-6 years Has been followed by General surgery both here by Dr. Narayanan and at [facility] Patient currently not a candidate for elective Patient not experiencing any abdominal pain, no evidence of strangulation on CT No indication for general surgery consultation Insulin-dependent diabetes type 2 Hold home meds Will hold long-acting insulin for now d/t anorexia and reduced p.o. intake Sliding-scale insulin HLD Continue home meds HTN BP soft, hold homel meds for now Resume antihypertensives as necessary Bipolar disorder Continue home meds Full Code Attending:?Dr. Tolbert DVT Prophylaxis: Lovenox Pt will be admitted to the hospital under observation for treatment further evaluation of possible gastroparesis versus gastroenteritis. Time Spent With Patient Time: Total time managing care of this patient today ____ minutes. Quality Stroke Does the patient have a stroke diagnosis?: No VTE Prior VTE?: No VTE Risk Level:: Medical - moderate - high VTE Device Contraindication: Treatment Not Indicated VTE Drug Contraindication: N/A - Med Ordered
--- NOTE | 2023-03-25 12:31 | PC.NURSE ---
Patient resting on stretcher calm and cooperative, no s/s of distress noted at this time. Patient spoke with admitting provider.
[2023-03-25] MEDS: busPIRone HCl 10 MG TABLET 20 MG PO ×2 (13:33→20:46)
[2023-03-25] MEDS: buPROPion HCl XL 300 MG TAB.ER.24H PO (13:35)
[2023-03-25] MEDS: Escitalopram Oxalate 20 MG TABLET PO (13:35)
[2023-03-25 13:51] LABS: Glucose, Whole Blood 90 mg/dL (60-115)
[2023-03-25] MEDS: Fenofibrate 160 MG TABLET PO (15:21)
[2023-03-25] MEDS: 0.9 % Sodium Chloride Flush 3 ML SYRINGE IVFLUSH ×2 (15:22→20:46)
--- NOTE | 2023-03-25 17:57 | MHC.CM.PN ---
PARRISH 03/25. Live with family. Independent. Retired. Family drives. No DME/Services.Thrive assessment negative, no concerns. Moderna x4/booster. HCP on file. D/C plan: Home without services. Family to transport. CM will follow for any discharge needs.
--- NOTE | 2023-03-25 18:01 | PC.NURSE ---
Patient ambulated to bathroom independently without assistive device. Patient was also incontinent of a large amount of urine.
[2023-03-25 18:14] LABS: Glucose, Whole Blood 86 mg/dL (60-115)
[2023-03-25 20:10] LABS: Glucose, Whole Blood 103 mg/dL (60-115)
[2023-03-25] MEDS: QUEtiapine Fumarate 50 MG TABLET 150 MG PO (20:46)
[2023-03-26 03:33] VITALS: BP 108/67; PULSE 80; RESP 16; TEMP 37.1; O2SAT 94
[2023-03-26 05:49] LABS: Hematocrit 40.4 % (37.0-47.0); Hemoglobin 13.2 g/dl (12.0-16.0); Mean Corpuscular HGB Conc 32.7 g/dl (31.0-35.0); Mean Corpuscular Hemoglobin 29.8 pg (27.0-33.0); Mean Corpuscular Volume 91.2 fL (80.0-98.0); Mean Platelet Volume 9.3 fL (9.4-12.3); Platelet Count 246 X10*3/uL (160-400); Red Blood Count 4.43 X10*6/uL (4.20-5.50); Red Cell Distribution Width 14.3 % (11.0-16.0); White Blood Count 4.6 X10*3/uL (4.8-10.8)
[2023-03-26] MEDS: Levothyroxine Sodium 50 MCG TABLET PO (05:50)
[2023-03-26] MEDS: Omeprazole 40 MG CAPSULE.DR PO (05:50)
[2023-03-26 06:05] LABS: Anion Gap 10 (12-20); Blood Urea Nitrogen 13 mg/dL (9-16); Calcium 8.8 mg/dL (8.4-10.2); Carbon Dioxide 26 mmol/L (22-29); Chloride 111 mmol/L (96-108); Creatinine Clr Calc Pharmacy 67.2; Estimated Glomerular Filt Rate > 60; Glucose Random 76 mg/dL (60-115); Potassium 3.6 mmol/L (3.3-5.1); Sodium 143 mmol/L (135-145)
[2023-03-26 07:05] VITALS: BP 118/58; PULSE 77; RESP 16; TEMP 37.1; O2SAT 97
--- NOTE | 2023-03-26 07:05 | PHA.MEDREC ---
Pharmacy Consult ? Medication Reconciliation Pharmacy has completed the medication reconciliation.
[2023-03-26 07:30] LABS: Glucose, Whole Blood 80 mg/dL (60-115)
[2023-03-26] MEDS: buPROPion HCl XL 300 MG TAB.ER.24H PO (07:41)
[2023-03-26] MEDS: busPIRone HCl 10 MG TABLET 20 MG PO (07:42)
[2023-03-26] MEDS: 0.9 % Sodium Chloride Flush 3 ML SYRINGE IVFLUSH (07:42)
[2023-03-26] MEDS: Atorvastatin Calcium 80 MG TABLET PO (07:42)
[2023-03-26] MEDS: QUEtiapine Fumarate 50 MG TABLET 150 MG PO (07:42)
[2023-03-26] MEDS: Fenofibrate 160 MG TABLET PO (07:42)
[2023-03-26] MEDS: Escitalopram Oxalate 20 MG TABLET PO (07:42)
--- NOTE | 2023-03-26 10:39 | PM.DS ---
DS: Providers Provider Date of Service: 03/26/23 Date of admission: 03/25/23 12:29 Date of discharge: 03/26/23 Primary care physician: Mar Tobar NP Attending physician on discharge: César Tolbert Discharging clinician: César Tolbert DS: Diagnosis Discharge Diagnosis (1) Diarrhea: Status: Acute (2) Ventral hernia: Status: Acute (3) Nausea & vomiting: Status: Acute DS: Summary Hospital Course Hospital Course: 72-year-old female with a PMH significant for? HLD, HTN, GERD, hypothyroidism, insulin-dependent diabetes, hx of invasive ductal carcinoma of left breast, bipolar disorder, and ruptured colon in 2001 with 3-foot resection who presents to the ED with?nausea, vomiting, and diarrhea x3 days. Pt says she began experiencing nausea and diarrhea on Tuesday night.? On Tuesday patient went to a barbecue during the day and ate has normal, but upon returning home had recurrent episodes of nausea, vomiting, diarrhea.? On patient was unable to tolerate any p.o. intake; even small sips of water with caused her to vomit it back up.? No substantial fever or chills. No abdominal pain, just an occasional discomfort that felt like a pinching from the inside on her left side. In total, pt says experienced 6+ episodes of diarrhea, with last episode last night.? Patient states she is no longer experiencing nausea after last anti-emetic and was able to tolerate some crackers and water.? No chest pain/pressure palpitations.? Denies shortness of breath.? Of note, patient has a significant abdominal history.? She notes in 2001 after another bur acute she experienced a ?ruptured colon? that required an emergent 3-foot surgical resection of her colon. Prior to that pt had an emergent . Both surgeries used the same midline incision, and likely weakened her abdominal muscles. Pt subsequently has experienced a large ventral hernia and multiple smaller midline hernias. Originally followed by Dr. Lindo and then by specialists at [facility]. Pt is not a candidate for elective surgical repair as it would be a very long surgery with likely little benefit; she has been told surgery will only be performed if her bowels become strangulated. In the ED patient was afebrile and slightly soft at 117/52. Labs were largely unremarkable, significant for random glucose of 140.? No leukocytosis.? Hemodynamically stable.? VBG WNL.? Electrolytes WNL.? Renal function baseline.? Hepatic function baseline.? Lipase 7.? Lactic acid WNL at 1.6.? Stool samples have not yet been collected. CT?of abdomen and pelvis showed large ventral hernia with herniation of small bowel loops without incarceration, and dehiscence of rectus muscle with multiple herniations along the midline.? Possible enterocolitis with large amount of liquid stool in the colon and small bowel, but no wall thickening.? CT also found small hiatal hernia and left nephrolithiasis without hydronephrosis. Pt was treated with IVF, dense drawn, metronidazole, metoclopramide. Pt will be admitted to the hospital under observation for treatment further evaluation of possible gastroparesis versus gastroenteritis. Hospital course: Patient was admitted to the hospital because of nausea vomiting and episode of diarrhea: Patient was given IV fluid, bowel rest, antiemetics, CT abdomen was done: Possible question of enterocolitis(possible viral) . With the above supportive care patient seems to be improved significantly, tolerating diet passing bowels, no new symptoms. No fever, blood culture negative at 24 hours. Patient will be going home, currently -does not seem need antibiotics due to likely viral enteritis versus gastroparesis episode. Follow-up outpatient with PCP for further management. plan: likely viral enteritis versus gastroparesis episode. Encouraged for adequate hydration and p.o. intake. If any new symptoms including abdominal pain or fever or any persistent nausea vomiting/diarrhea consider evaluation in nearest emergency room. Time Spent with Patient Time attestation: Total time managing care of this patient today ____ minutes. Discharge coordination time: Greater than 30 minutes Quality: Safe Use of Opioids Does Pt have an Active Cancer Diagnosis on the Problem List?: No Quality: Stroke Does the patient have a stroke diagnosis?: No Physical Exam Vital Signs: Vital Signs: Last Vital Signs Temp 98.7 F 03/26/23 07:05 Pulse 77 03/26/23 07:05 Resp 16 03/26/23 07:05 BP 118/58 L 03/26/23 07:05 Pulse Ox 97 03/26/23 07:05 O2 Del Method Room Air 03/26/23 07:05 BMI result Body Mass Index 39.5 Appearance: Alert.? Oriented X3.? cvs: rrr, [id number]. res: clear to auscultation ,no rhonchii or wheezing abd: Abdomen soft, non-tender, non-distended. Large ventral hernia, reducible, non-tender. Normal bowel sounds. ext pulses present , no cyanosis . neuro: axo3 , nonfocal. DS: Data Data Completed and Pending Labs on day of discharge: Laboratory Results - last 24 hr 03/25/23 03/25/23 03/25/23 07:43 13:45 18:10 WBC RBC Hgb Hct MCV MCH MCHC RDW Plt Count MPV Absolute Nucleated RBC Nucleated RBC % (auto) Sodium Potassium Chloride Carbon Dioxide Anion Gap BUN Creatinine Estim Creat Clear Calc Estimated GFR POC Glucose 90 86 Random Glucose Calcium B-Hydroxybutyrate 0.16 H 03/25/23 03/26/23 03/26/23 20:05 05:33 05:33 WBC 4.6 L RBC 4.43 Hgb 13.2 Hct 40.4 MCV 91.2 MCH 29.8 MCHC 32.7 RDW 14.3 Plt Count 246 D MPV 9.3 L Absolute Nucleated RBC 0.000 Nucleated RBC % (auto) 0.0 Sodium 143 Potassium 3.6 Chloride 111 H Carbon Dioxide 26 Anion Gap 10 L BUN 13 Creatinine 0.89 Estim Creat Clear Calc 67.2 Estimated GFR > 60 POC Glucose 103 Random Glucose 76 Calcium 8.8 B-Hydroxybutyrate 03/26/23 07:13 WBC RBC Hgb Hct MCV MCH MCHC RDW Plt Count MPV Absolute Nucleated RBC Nucleated RBC % (auto) Sodium Potassium Chloride Carbon Dioxide Anion Gap BUN Creatinine Estim Creat Clear Calc Estimated GFR POC Glucose 80 Random Glucose Calcium B-Hydroxybutyrate Preliminary micro results at discharge 03/25/23 07:02 Blood Culture - Preliminary Blood - Venous No growth after 24 hours. 03/25/23 07:02 Blood Culture - Preliminary Blood - Venous No growth after 24 hours. Imaging Chest x-ray: Radiologist's impression: ITS Impressions Abdomen/Pelvis CT 03/25/23 07:22 IMPRESSION: Large ventral hernia with herniation of small bowel loops without incarceration. Possibly enterocolitis with large amount of liquid stool in the colon and small bowel Small hiatal hernia Left nephrolithiasis Fleischner guidelines were followed. Discharge Plan Discharge Anticipated Discharge Date/Time: 03/26/23 10:29 Patient Disposition: Home, Self-Care Discharge Diagnosis: Nausea vomiting, possible viral enterocolitis Referrals: Mar Tobar, [facility] [Primary Care Provider] - 1 Week Discharge Medications: Continued buspirone 10 mg tablet 20 mg PO BID Qty: 120 0RF (DME) Aerochamber MV Spacer See Rx Instructions .Route Qty: 1 0RF Rx Instructions: As directed (DME) FreeStyle Lite Strips Strip See Rx Instructions .ROUTE .MEDSUPPLY Qty: 100 12RF Rx Instructions: As directed to test blood glucose 3x daily (DME) lancets [FreeStyle Lancets] 28 gauge misc See Rx Instructions .ROUTE .COMPLEX Qty: 100 11RF Dose Instruction: USE DIRECTED 3 TIMES A DAY Rx Instructions: USE DIRECTED 3 TIMES A DAY levothyroxine 50 mcg tablet 50 mcg PO DAILY Qty: 90 1RF pen needle, diabetic [BD Ultra-Fine Short Pen Needle] 31 gauge x 5/16 needle See Rx Instructions subcut BID-TID Qty: 100 11RF Rx Instructions: subcut 2 to 3 times a day; amlodipine 2.5 mg tablet 2.5 mg PO DAILY 90 Days Qty: 90 3RF rosuvastatin 20 mg tablet 20 mg PO DAILY Qty: 90 2RF insulin glargine [Basaglar KwikPen U-100 Insulin] 100 unit/mL (3 mL) insulin pen 34 unit subcut QPM 90 Days Qty: 15 3RF fenofibrate 160 mg tablet 160 mg PO DAILY Qty: 90 1RF repaglinide 2 mg tablet 2 mg PO BID Qty: 180 1RF omeprazole 40 mg capsule,delayed release(DR/EC) 40 mg PO DAILY Qty: 42 3RF albuterol sulfate [Ventolin HFA] 90 mcg/actuation HFA aerosol inhaler 1 puff INHALATION Q4H PRN (Reason: wheezing) insulin glargine [Basaglar KwikPen U-100 Insulin] 100 unit/mL (3 mL) insulin pen 34 unit subcut BEDTIME escitalopram oxalate [Lexapro] 20 mg tablet 20 mg PO DAILY quetiapine 300 mg tablet extended release 24 hr 300 mg PO BEDTIME (DME) blood pressure test kit-large [Advocate Blood Pressure Monitr] Kit See Rx Instructions .Route Qty: 1 0RF Rx Instructions: As directed bupropion HCl 300 mg tablet extended release 24 hr 300 mg PO DAILY Discharge Orders: Discharge Order (Routine); Ordered 03/26/23 Ordered By: César Tolbert Diet: Advance to usual diet Activity on Discharge: As tolerated Stand Alone Forms: Patient Portal Discharge page Care Plan Goals: Patient was admitted to the hospital because of nausea vomiting and episode of diarrhea: Patient was given IV fluid, bowel rest, antiemetics, CT abdomen was done: Possible question of enterocolitis(possible viral) . With the above supportive care patient seems to be improved significantly, tolerating diet passing bowels, no new symptoms. No fever, blood culture negative at 24 hours. Patient will be going home, currently -does not seem need antibiotics due to likely viral enteritis versus gastroparesis episode. If any new symptoms including abdominal pain or fever or any persistent nausea vomiting/diarrhea consider evaluation in nearest emergency room. Follow-up outpatient with PCP for further management. Health Concerns: As above. Plan of Treatment: As above. Assessment: As above. Patient Instructions: Acute Nausea and Vomiting (DC)
--- NOTE | 2023-03-26 12:13 | MHC.CM.PN ---
PT WILL DC HOME TODAY WITH NO SERVICES FAMILY TO TRANSPORT
== END 2023-03-26 11:26 | disposition home or self-care (01) ==
LOC: HO.ED 10:12 → HO.EDOVER 12:36 → HO.S3 17:03
PROVIDERS: Physician Assistant; Admitting Provider Student in an Organized Health Care Education/Training Program; Emergency Provider Emergency Medicine; PCP Hospitalist; Visit Provider Internal Medicine
DX: R19.7 Diarrhea, unspecified (principal); K43.9 Ventral hernia without obstruction or gangrene; R11.2 Nausea with vomiting, unspecified; R10.32 Left lower quadrant pain; E11.9 Type 2 diabetes mellitus without complications; I10 Essential (primary) hypertension; E78.5 Hyperlipidemia, unspecified; Z79.899 Other long term (current) drug therapy; Z79.02 Long term (current) use of antithrombotics/antiplatelets; Z79.4 Long term (current) use of insulin
CPT/HCPCS: 36415; 51701; 74177; 80048; 80076; 82010; 82803; 82947; 83605; 83690; 85025; 85027; 87040; 96361; 96365; 96366; 96375; 99221; 99285; J2405; J2765; Q9967

== ENCOUNTER 2023-05-19 11:19 | Outpatient (AMB) | payer MEDICARE, MEDICAID, SELFPAY ==
--- NOTE | 2023-05-19 11:22 | A.OFFVIS_ITS ---
Intake Vital Signs 05/19/23 11:31 Height 5 ft 2 in Weight 182 lb 2 oz BMI 33.3 BP 155/72 H Blood Pressure Location Lt brachial Position Sitting Pulse 79 Intake Visit Reasons: 1 year breast exam Intake Note: Patient is seen in office for yearly breast exam. Patient c/o: denies any concerns has a mammogram sched for 05/27/23 Advertising Display Rotator Required: No Accompanied by: Self / Same As Patient Allergies ether [ETHER] Allergy (Severe, Verified 05/19/23 11:29) DIFFICULT EMERGENCE ANESTHESIA codeine [CODEINE] Allergy (Intermediate, Verified 05/19/23 11:29) VOMITING Medication List - Last Reconciled 05/19/23 by Jermaine Narayanan MD albuterol sulfate 90 mcg/actuation (Ventolin HFA) 1 puff inhalation Q4H PRN amlodipine 2.5 mg PO DAILY 3 months Basaglar KwikPen U-100 Insulin (insulin glargine) 34 units (0.34 mL) subcut QPM 3 months NS blood pressure test kit-large (Advocate Blood Pressure Monitor kit) As directed blood sugar diagnostic (FreeStyle Lite Strips) As directed to test blood glucose 3x daily blood-glucose meter (FreeStyle Lite Meter kit) DX: E11.9, test blood sugar 3 times a day, duration 999 days bupropion HCl 300 mg PO DAILY buspirone 20 mg (2 x 10 mg) PO BID escitalopram oxalate (Lexapro) 20 mg PO DAILY fenofibrate 160 mg PO DAILY inhalational spacing device (Aerochamber MV spacer) As directed insulin glargine (Basaglar KwikPen U-100 Insulin) 34 units subcut BEDTIME lancets (FreeStyle Lancets) USE DIRECTED 3 TIMES A DAY levothyroxine 50 mcg PO DAILY omeprazole 40 mg PO DAILY pen needle, diabetic (BD Ultra-Fine Short Pen Needle) subcut 2 to 3 times a day; quetiapine ER 300 mg PO BEDTIME repaglinide 2 mg PO BID rosuvastatin 20 mg PO DAILY HPI HPI Comments History of Present Illness Details 72-year-old female patient returning for follow-up breast examination after left breast mastectomy. She is a former patient of Dr. Pressley with a history of invasive ductal carcinoma of left breast, grade 3 with an extensive intraductal component as well as a focus of invasive lobular carcinoma, ER/OR negative, HER2 Tania positive. She underwent a left mastectomy in December 2015. Two of 5 lymph nodes were positive for malignancy. Three abnormalities in the right breast core biopsy in and determined to be atypical ductal hyperplasia. She underwent adjuvant chemotherapy with Taxotere, Cytoxan, and Herceptin with 6 cycles followed by Herceptin q. 3 weeks completed on 01/11/2017. She underwent radiation therapy and developed a severe skin burn from the treatment. This was treated with Silvadene cream and subsequently resolved. She underwent lymphedema therapy for swelling in the left arm. Her last mammogram of 04/21/2022 revealed no suspicious findings in the right breast (BI-RADS 1). Routine annual screening right breast mammography is recommended. She she completed 5 years of the letrozole as of 08/24/2021. She feels well and denies any new breast symptoms. She is scheduled for a mammogram on 05/27/2023. She was evaluated for her abdominal wall hernia with but was told she was ?too late. ? She is now wearing an abdominal binder taking stool softeners. She denies any new problems. [facility] Medical History Cataract, right eye Dyspnea on exertion Hiatal hernia Pre-op evaluation Primary generalized (osteo)arthritis Tubular adenoma of colon Surgical History History of section History of mastectomy S/P colon resection Family History Father No problems noted. Mother No problems noted. Social History Household Members: Family Housing: Condominium Are you a primary behavioral health care coordinator to a significant other at home: No Do you presently have visiting nurse or other home services: No Patient Tobacco Use Status: Never used Tobacco e-Cigarette/Vaping Use: Never Used Second Hand Smoke Exposure: No service: No Current occupational status: retired Current occupation: Medical billing Current occupational exposures/hazards: No Cognitive needs: No Hearing needs: No Vision needs: No Review of Systems Const All systems reviewed & are unremarkable except as noted in HPI and below Card Denies chest pain and Denies palpitations GI Reports abdominal pain, Reports bloating, Denies constipation, Denies nausea and Denies vomiting Denies nipple discharge Skin/Breast Denies breast swelling, Denies breast skin changes, Denies breast pain, Denies breast mass, Denies change in breast shape and Denies nipple discharge Endo Denies palpitations Bill/Lymph Denies lymphadenopathy Physical Exam Const General: cooperative, healthy appearing, comfortable, no acute distress and well developed Nutritional Appearance: well nourished Orientation/consciousness: patient oriented x3 Limitations: no limitations Neck Neck: Yes no lymphadenopathy Chest Other: Right breast: No skin change, no nipple discharge, no nipple retraction, no palpable mass, no tenderness, no enlarged lymph nodes. Left chest wall: Well- healed incision with no palpable subcutaneous masses or skin changes, no enlarged lymph nodes. Resp Effort & Inspection: normal respiratory effort Skin General skin exam: no rashes or lesions noted Neuro General: patient oriented x3 Extrem General: Yes no clubbing, cyanosis or edema Assessment & Plan Assessment & Plan (1) Incisional hernia: Code(s): K43.2 - Incisional hernia without obstruction or gangrene Plan 72-year-old female patient returning for a follow-up breast examination after undergoing left breast mastectomy in December 2015. She feels well and denies any ongoing breast symptoms. Examination today reveals a well-healed mastectomy scar on the left and no new suspicious findings on the right side. She is scheduled for a right mammogram on 05/27/2023. I have asked her to return approximately 1 year for follow-up breast examination. She is welcome to call sooner for any new concerns. Coding Level of Care Code Est Pt Level 3 (74013) Diagnoses Incisional hernia K43.2
[2023-05-19 11:31] VITALS: BP 155/72; PULSE 79; BMI 33.3
== END 2023-05-19 11:39 | disposition home or self-care (01) ==
PROVIDERS: PCP Hospitalist; Visit Provider Surgery
DX: K43.2 Incisional hernia without obstruction or gangrene (principal)
CPT/HCPCS: 99213

== ENCOUNTER → 2023-05-19 11:19 | Outpatient (BNVA) | payer MEDICARE, MEDICAID, SELFPAY | PROVIDERS: PCP Hospitalist; Visit Provider Surgery | DX: K43.2 Incisional hernia without obstruction or gangrene (principal); C50.912 Malignant neoplasm of unspecified site of left female breast; N60.91 Unspecified benign mammary dysplasia of right breast; Z90.12 Acquired absence of left breast and nipple; Z92.21 Personal history of antineoplastic chemotherapy; Z92.3 Personal history of irradiation; Z79.620 Long term (current) use of immunosuppressive biologic; Z79.811 Long term (current) use of aromatase inhibitors | CPT/HCPCS: 99212 ==

== ENCOUNTER 2023-05-27 11:45 | Outpatient (REF) | payer MEDICARE, MEDICAID, SELFPAY ==
--- NOTE | ~2023-05-27 | MM_ITS ---
EXAMINATION: MM SCREENING DIGITAL BREAST TOMOSYNTHESIS, BILATERAL CLINICAL INFORMATION: Screening. Asymptomatic. The patient is status post left mastectomy. COMPARISON: Mammography: This study is compared with prior exams dating back to 2019. TECHNIQUE: Digital breast tomosynthesis is performed in both the craniocaudal and mediolateral oblique views along with computer-aided detection (CAD). Synthesized 2D images are generated from the tomosynthesis. FINDINGS: There are scattered areas of fibroglandular density (ACR BI-RADS breast composition Category b). There are no significant masses, abnormal calcifications, or other abnormalities. There are 3 tissue markers in the right breast from prior benign percutaneous biopsies. There are a few, benign calcifications present. MM/MM tomosynthesis screening RT IMPRESSION: No mammographic evidence of malignancy. ASSESSMENT: BI-RADS BI-RADS 2 - Benign Findings RECOMMENDATION: Routine annual mammography screening. 1 year F/U This examination should not preclude the clinical evaluation of a suspicious palpable abnormality. This patient's information was entered into a reminder system with a target due date for their next mammogram.
== END 2023-05-27 11:46 | disposition home or self-care (01) ==
LOC: HO.MAMMO 11:45
PROVIDERS: PCP Hospitalist; Visit Provider Hospitalist
DX: Z12.31 Encounter for screening mammogram for malignant neoplasm of breast (principal)
CPT/HCPCS: 77063; 77067

== ENCOUNTER → 2023-05-27 12:30 | Outpatient (BNV) | payer MEDICARE, MEDICAID, SELFPAY | PROVIDERS: PCP Hospitalist; Visit Provider Radiology Diagnostic Radiology | DX: Z12.31 Encounter for screening mammogram for malignant neoplasm of breast (principal); Z90.12 Acquired absence of left breast and nipple | CPT/HCPCS: 77063; 77067 ==

== ENCOUNTER 2023-08-26 09:23 | Outpatient (AMB) | payer MEDICARE, MEDICAID, SELFPAY ==
--- NOTE | 2023-08-26 09:25 | MHC.PC.OV ---
Vital Signs 08/26/23 09:28 Height 5 ft 0.5 in Weight 186 lb 8 oz BMI 35.8 BP 110/70 Blood Pressure Location Rt brachial Position Sitting Pulse 75 Pulse Source Pulse Oximeter Pulse Oximetry (%) 98 Oxygen Delivery Method Room Air Intake Visit Reasons: Transfer of care from [facility]. Intake Note: Patient is here today for transfer of care from .. Requesting physical Job Developer For Deaf Adults Required: No Registered Nurse Fetal: Not Required per policy Accompanied by: Self / Same As Patient Allergies ether [ETHER] Allergy (Severe, Verified 08/26/23 09:46) DIFFICULT EMERGENCE ANESTHESIA codeine [CODEINE] Allergy (Intermediate, Verified 08/26/23 09:46) VOMITING Medication List - Last Reconciled 08/26/23 by MARY Jose albuterol sulfate 90 mcg/actuation (Ventolin HFA) 1 puff inhalation Q4H PRN amlodipine 2.5 mg PO DAILY 3 months Brianaglbarney Stephens U-100 Insulin (insulin glargine) 34 units (0.34 mL) subcut QPM 3 months NS blood pressure test kit-large (Advocate Blood Pressure Monitor kit) As directed blood sugar diagnostic (FreeStyle Lite Strips) As directed to test blood glucose 3x daily blood-glucose meter (FreeStyle Lite Meter kit) DX: E11.9, test blood sugar 3 times a day, duration 999 days bupropion HCl 300 mg PO DAILY buspirone 20 mg (2 x 10 mg) PO BID escitalopram oxalate (Lexapro) 20 mg PO DAILY fenofibrate 160 mg PO DAILY inhalational spacing device (Aerochamber MV spacer) As directed inhalational spacing device ([employer] Aerochamber) As directed lancets (FreeStyle Lancets) USE DIRECTED 3 TIMES A DAY levothyroxine 50 mcg PO DAILY omeprazole 40 mg PO DAILY pen needle, diabetic (BD Ultra-Fine Short Pen Needle) subcut 2 to 3 times a day; quetiapine ER 300 mg PO BEDTIME repaglinide 2 mg PO BID rosuvastatin 20 mg PO DAILY Tobacco use date assessed: 08/26/23 Fall risk assessment: No Falls in past year Last assessed Fall Risk: 08/26/23 Dental Screening Dental Screen Date: 08/26/23 Did you have a dental visit in the last 12 months?: No Did you have a dental problem in the last 6 months where you did not have access to dental care?: No Was dental information given to patient?: No HPI HPI Comments History of Present Illness Details 73-year-old female past medical history significant for type 2 diabetes mellitus, hypertension, hypercholesteremia, hypothyroidism, bipolar, right breast cancer and asthma. Patient presents today for transfer care from [facility]. Last colonoscopy completed 2018 showed tubular adenoma patient overdue for colonoscopy screening. Discussed this with patient during office appointment, patient is concerned that she is worried about having this done due to recent diagnosis of hiatal hernia and states she has multiple areas where her intestines are poking through her abdominal wall. Patient agreeable for referral to Gastroenterology to follow-up for repeat colonoscopy screening and to discuss her concerns. Referral entered. Patient denies any acute concerns at this time. COUNT INCLUDES [facility] Medical History (Updated 08/26/23 @ 09:54 by MARY Jose) Hiatal hernia Pre-op evaluation Dyspnea on exertion Cataract, right eye Tubular adenoma of colon Primary generalized (osteo)arthritis Surgical History History of cataract surgery History of mastectomy S/P colon resection History of section Family History Father No problems noted. Mother No problems noted. Social History (Updated 08/26/23 @ 09:50 by MARY Jose) [facility]hold Members: [facility] Are you a primary manager long term care to a significant other at home: No Do you presently have visiting nurse or other home services: No Alcohol intake: current Alcohol intake frequency: holidays/special occasions only Patient Tobacco Use Status: Never used Tobacco e-Cigarette/Vaping Use: Never Used Second Hand Smoke Exposure: No service: No Current occupational status: retired Current occupation: Medical billing Current occupational exposures/hazards: No Cognitive needs: No Hearing needs: No Vision needs: No Questionnaire PHQ-9 Over the last 2 weeks, how often have you been bothered by any of the following problems? 1. Little interest or pleasure in doing things: not at all 2. Feeling down, depressed, or hopeless: not at all 3. Trouble falling or staying asleep, or sleeping too much: not at all 4. Feeling tired or having little energy: not at all 5. Poor appetite or overeating: not at all 6. Feeling bad about yourself - or that you are a failure or have let yourself or your family down: not at all 7. Trouble concentrating on things, such as reading the newspaper or watching television: not at all 8. Moving or speaking so slowly that other people could have noticed. Or the opposite - being so fidgety or restless that you have been moving around a lot more than usual: not at all 9. Thoughts that you would be better off or of hurting yourself in some way: not at all Total score: 0 Depression Screening Interpretation: Negative Depression Screening Done: Yes Source: Developed by Drs. Norberto Crump, Alia Cortez, Darron Joseph and colleagues, with an educational alfie from [employer]. Thrive Questionnaire Date Thrive assessed: 03/25/23 AUDIT C Alcohol Use Questionnaire (AUDIT-C) 1. How often do you have a drink containing alcohol?: Never Total Score: 0 LUNA-7 AMB Questionnaire LUNA-7 Date LUNA - 7 assessed: 08/26/23 Feeling nervous, anxious, or on edge: 0 = Not at all Not being able to stop or control worryin = Not at all Worrying too much about different things: 0 = Not at all Trouble relaxin = Not at all Being so restless that it is hard to sit still: 0 = Not at all Becoming easily annoyed or irritable: 0 = Not at all Feeling afraid as if something awful might happen: 0 = Not at all Total LUNA-7 score (0-4 normal; 5-9 mild; 10-14 moderate; 15-21 severe): 0 Source: Developed by Drs. Norberto Crump, Alia Cortez, Darron Joseph and colleagues, with an educational alfie from [employer]. Review of Systems Const Denies chills, Denies fatigue, Denies fever(s) and Denies poor appetite Eyes Denies no additional complaints ENT Reports Normal hearing present Card Denies chest pain, Denies syncope, Denies rapid heart rate and Denies dyspnea Resp Denies cough and Denies dyspnea GI Denies change in stool character, Denies constipation, Denies diarrhea, Denies nausea and Denies vomiting Denies urinary frequency, Denies dysuria and Denies urinary urgency Neuro Reports Normal hearing present, Denies confusion and Denies syncope Psych Denies confusion Endo Denies fatigue Physical exam (Primary Care) Vital Signs: Last Vital Signs Pulse 75 08/26/23 09:28 BP 110/70 08/26/23 09:28 Pulse Ox 98 08/26/23 09:28 Oxygen Delivery Method Room Air 08/26/23 09:28 BMI result Body Mass Index 35.8 Tobacco/Smoking Status: Tobacco use Status Tobacco use date assessed 08/26/23 08/26/23 09:39 Patient Tobacco Use Status Never used Tobacco 08/26/23 09:50 e-Cigarette/Vaping Use Never Used 08/26/23 09:50 PHQ-9: PHQ-9 Score PHQ-9: Total score 0 08/26/23 11:17 Depression Screening Interpretation: Negative Thrive Assessment: Date of Thrive Assessment Date Thrive assessed 03/25/23 08/26/23 09:39 Const General: No confusion Orientation/consciousness: No confusion HENMT Head: Yes normocephalic and Yes atraumatic Eyes Conjunctivae: conjunctivae normal Chest Chest palpation & inspection: normal inspection of the chest Resp Effort & Inspection: normal respiratory effort Auscultation: clear to auscultation bilaterally, no crackles, no rhonchi and no wheezes Cardio Rate: regular rate Rhythm: regular rhythm Heart sounds: S1 normal heart sound present and S2 normal heart sound present GI Inspection: Yes normal to inspection Neuro General: No confusion Cranial nerves: Yes Normal hearing present Extrem General: No edema Assessment and Plan Assessment & Plan (1) Tubular adenoma of colon: Code(s): D12.6 - Benign neoplasm of colon, unspecified Plan: Referral entered for repeat colonoscopy screening. (2) Type 2 diabetes mellitus without complications: Code(s): E11.9 - Type 2 diabetes mellitus without complications Plan: Continue on Basaglar KwikPen 34 units at bedtime. Patient educated to decrease the amount of carbohydrate intake such as pasta, bread, rice and potatoes are all sugar in addition to the sweet stuff. Remember that fruits are good but they also have sugar. Fasting glucose and hemoglobin A1c ordered. (3) Hypothyroidism (acquired): Code(s): E03.9 - Hypothyroidism, unspecified Plan: TSH with reflex T4 ordered. (4) Pure hypercholesterolemia: Code(s): E78.00 - Pure hypercholesterolemia, unspecified Plan: Fasting lipid panel ordered. Continue on rosuvastatin 20 mg daily. Avoid fried foods, chicken skin, eggs, butter,margarine, pastries and?? red meat. (5) Bipolar 1 disorder: Code(s): F31.9 - Bipolar disorder, unspecified Plan: Patient currently follows with Dr. Ramey psychiatry. Continue on curent medications. (6) Hypertension, essential: Code(s): I10 - Essential (primary) hypertension Plan: Continue on amlodipine 2.5 mg daily. Follow low-salt diet exercise Plan Follow-up in 3 months for physical exam. Orders: Orders Complete Blood Count Auto Diff Today Z13.0 - Encounter for screening for diseases of the blood and blood-forming organs and certain disorders involving the immune mechanism Comprehensive [place]. Panel Fast Today E11.9 - Type 2 diabetes mellitus without complications Lipid Panel Today E78.00 - Pure hypercholesterolemia, unspecified TSH reflex Free T4 Today Z13.29 - Encounter for screening for other suspected endocrine disorder Hemoglobin A1c Today E11.9 - Type 2 diabetes mellitus without complications Referrals Gastroenterology Referral D12.6 - Benign neoplasm of colon, unspecified Medications: New albuterol sulfate 90 mcg/actuation (Ventolin HFA) 2 puffs inhalation Q6H PRN 6.7 grams 0RF shortness of breath or wheezing Refilled Basaglar KwikPen U-100 Insulin (insulin glargine) 34 units (0.34 mL) subcut QPM 15 mL 3RF 3 months NS E11.9 - Type 2 diabetes mellitus without complications amlodipine 2.5 mg PO DAILY 90 tabs 1RF 3 months I10 - Essential (primary) hypertension levothyroxine 50 mcg PO DAILY 90 tabs 0RF rosuvastatin 20 mg PO DAILY 90 tabs 2RF Discontinued albuterol sulfate 90 mcg/actuation (Ventolin HFA) Discontinued Reason: Duplicate 1 puff inhalation Q4H PRN 8.5 grams 2RF wheezing Coding Level of Care Code New Pt Level 4 (74041) Diagnoses Tubular adenoma of colon D12.6 Type 2 diabetes mellitus without complications E11.9 Hypothyroidism (acquired) E03.9 Pure hypercholesterolemia E78.00 Bipolar 1 disorder F31.9 Hypertension, essential I10
[2023-08-26 09:28] VITALS: BP 110/70; PULSE 75; O2SAT 98; BMI 35.8
== END 2023-08-26 10:05 | disposition home or self-care (01) ==
PROVIDERS: PCP Hospitalist; Visit Provider Nurse Practitioner Family
DX: E11.9 Type 2 diabetes mellitus without complications (principal); F31.9 Bipolar disorder, unspecified; C50.912 Malignant neoplasm of unspecified site of left female breast; D12.6 Benign neoplasm of colon, unspecified; E03.9 Hypothyroidism, unspecified; E78.00 Pure hypercholesterolemia, unspecified; I10 Essential (primary) hypertension
CPT/HCPCS: 99204; 99214

== ENCOUNTER 2023-09-02 08:34 | Outpatient (REF) | payer MEDICARE, MEDICAID, SELFPAY ==
[2023-09-02 08:50] LABS: MANUAL DIFF FLAG NO
[2023-09-02 09:27] LABS: Basophils Absolute Auto 0.1 X10*3/uL (0.0-0.2); Basophils Percent Auto 1.1 % (0-2); Eosinophils Absolute Auto 0.3 X10*3/uL (0.0-0.4); Hematocrit 44.7 % (37.0-47.0); Hemoglobin 14.7 g/dl (12.0-16.0); Imm Gran Abs Auto 0.02 X10*3/uL (0.00-0.03); Imm Gran Pct Auto 0.3 % (0.0-0.4); Lymphocytes Absolute Auto 2.2 X10*3/uL (1.2-4.9); Lymphocytes Percent Auto 36.2 % (20-40); Mean Corpuscular HGB Conc 32.9 g/dl (31.0-35.0); Mean Corpuscular Hemoglobin 29.3 pg (27.0-33.0); Mean Corpuscular Volume 89.2 fL (80.0-98.0); Mean Platelet Volume 9.4 fL (9.4-12.3); Monocytes Absolute Auto 0.6 X10*3/uL (0.1-1.2); Monocytes Percent Auto 9.7 % (2-11); Neutrophils Absolute Auto 2.9 x10*3/uL (2.0-8.3); Neutrophils Percent Auto 47.7 % (45-73); Platelet Count 341 X10*3/uL (160-400); Red Blood Count 5.01 X10*6/uL (4.20-5.50); Red Cell Distribution Width 13.2 % (11.0-16.0); White Blood Count 6.2 X10*3/uL (4.8-10.8)
[2023-09-02 10:21] LABS: TSH reflex Free T4 2.08 uIU/mL (0.32-4.0)
[2023-09-02 10:23] LABS: Estimated Average Glucose 140 mg/dL; Hemoglobin A1c % 6.5 % (<6.0)
[2023-09-02 11:15] LABS: Alanine Aminotransferase 22 U/L (0-31); Alkaline Phosphatase 61 U/L (39-117); Anion Gap 11 (12-20); Aspartate Amino Transferase 19 U/L (5-31); Bilirubin Total 0.3 mg/dL (0.0-1.0); Blood Urea Nitrogen 15 mg/dL (9-16); Calcium 9.4 mg/dL (8.4-10.2); Carbon Dioxide 26 mmol/L (22-29); Chloride 111 mmol/L (96-108); Cholesterol 163 mg/dL (<200); Estimated Glomerular Filt Rate > 60; HDL Cholesterol 47 mg/dL (>40); LDL Cholesterol Calculated 96 mg/dL (<100); Potassium 3.9 mmol/L (3.3-5.1); Sodium 144 mmol/L (135-145); Total Protein 6.5 g/dL (6.5-8.0); Triglycerides 103 mg/dL (<150)
[2023-09-02 11:43] LABS: Glucose Fasting 57 mg/dL (60-99)
== END 2023-09-02 08:35 | disposition home or self-care (01) ==
LOC: HO.LAB 08:34
PROVIDERS: PCP Nurse Practitioner Family; Visit Provider Nurse Practitioner Family
DX: Z13.0 Encounter for screening for diseases of the blood and blood-forming organs and certain disorders involving the immune mechanism (principal); Z13.29 Encounter for screening for other suspected endocrine disorder; E11.9 Type 2 diabetes mellitus without complications; E78.00 Pure hypercholesterolemia, unspecified
CPT/HCPCS: 36415; 80053; 80061; 83036; 84443; 85025

== ENCOUNTER 2023-12-20 14:48 | Outpatient (AMB) | payer MEDICARE, MEDICAID, SELFPAY ==
--- NOTE | 2023-12-20 15:04 | A.OFFPC_ITS ---
Vital Signs 12/20/23 15:06 Height 5 ft 0.5 in Weight 190 lb 8 oz BMI 36.6 BP 110/62 Blood Pressure Location Lt brachial Position Sitting Intake Visit Reasons: PE Intake Note: Patient is here today for a physical. Commercial Fishing Vessel Operator Required: No Residential Service Technician: Not Required per policy Accompanied by: Self / Same As Patient Allergies ether [ETHER] Allergy (Severe, Verified 12/31/23 15:13) DIFFICULT EMERGENCE ANESTHESIA codeine [CODEINE] Allergy (Intermediate, Verified 12/31/23 15:13) VOMITING Medication List - Last Reconciled 12/31/23 by Sy Stallings MD albuterol sulfate 90 mcg/actuation (Ventolin HFA) 2 puffs inhalation Q6H PRN amlodipine 2.5 mg PO DAILY 3 months Basaglar KwikPen U-100 Insulin (insulin glargine) 34 units (0.34 mL) subcut QPM 3 months NS blood pressure test kit-large (Advocate Blood Pressure Monitor kit) As directed blood sugar diagnostic (FreeStyle Lite Strips) As directed to test blood glucose 3x daily blood-glucose meter (FreeStyle Lite Meter kit) DX: E11.9, test blood sugar 3 times a day, duration 999 days bupropion HCl 300 mg PO DAILY buspirone 20 mg (2 x 10 mg) PO BID escitalopram oxalate (Lexapro) 20 mg PO DAILY fenofibrate 160 mg PO DAILY inhalational spacing device (Aerochamber MV spacer) As directed inhalational spacing device (RiteFlo Aerochamber) As directed lancets (FreeStyle Lancets) USE DIRECTED 3 TIMES A DAY levothyroxine 50 mcg PO DAILY omeprazole 40 mg PO DAILY pen needle, diabetic (BD Ultra-Fine Short Pen Needle) subcut 2 to 3 times a day; quetiapine ER 300 mg PO BEDTIME repaglinide 2 mg PO BID rosuvastatin 20 mg PO DAILY Tobacco use date assessed: 12/20/23 Fall risk assessment: No Falls in past year Last assessed Fall Risk: 12/20/23 Dental Screening Dental Screen Date: 12/20/23 Did you have a dental visit in the last 12 months?: No Did you have a dental problem in the last 6 months where you did not have access to dental care?: No Was dental information given to patient?: No HPI PE HPI Details 73-year-old female presents to the [facility] e requesting an annual physical. I will be assuming her care as her current provider has left the practice. [facility] Medical History Hiatal hernia Pre-op evaluation Dyspnea on exertion Cataract, right eye Tubular adenoma of colon Primary generalized (osteo)arthritis Surgical History History of cataract surgery History of mastectomy S/P colon resection History of section Family History Father No problems noted. Mother No problems noted. Social History Household Members: [facility] Are you a primary patient care manager to a significant other at home: No Do you presently have visiting nurse or other home services: No Alcohol intake: current Alcohol intake frequency: holidays/special occasions only Patient Tobacco Use Status: Never used Tobacco e-Cigarette/Vaping Use: Never Used Second Hand Smoke Exposure: No service: No Current occupational status: retired Current occupation: Medical billing Current occupational exposures/hazards: No Cognitive needs: No Hearing needs: No Vision needs: No Questionnaire PHQ-9 Over the last 2 weeks, how often have you been bothered by any of the following problems? 1. Little interest or pleasure in doing things: not at all 2. Feeling down, depressed, or hopeless: not at all 3. Trouble falling or staying asleep, or sleeping too much: not at all 4. Feeling tired or having little energy: not at all 5. Poor appetite or overeating: not at all 6. Feeling bad about yourself - or that you are a failure or have let yourself or your family down: not at all 7. Trouble concentrating on things, such as reading the newspaper or watching television: not at all 8. Moving or speaking so slowly that other people could have noticed. Or the opposite - being so fidgety or restless that you have been moving around a lot more than usual: not at all 9. Thoughts that you would be better off or of hurting yourself in some way: not at all Total score: 0 Depression Screening Interpretation: Negative Depression Screening Done: Yes Source: Developed by Drs. Norberto Crump, Darron Hester and colleagues, with an educational alfie from [employer]. Thrive Questionnaire Date Thrive assessed: 12/20/23 I am a: Patient What is your living situation today?: I have a steady place to live Within the past 12 months, did the food you bought not last and you didn't have the money to get more?: Never true Within the past 12 months, did you worry whether your food would run out before you got money to buy more?: Never true Do you have trouble paying for medicines?: No Do you have trouble getting transportation to medical appointments?: No Do you have trouble paying your heating and electricity bill?: No Do you have trouble taking care of your child, family member or friend?: No Do you have trouble with day-to-day activities such as bathing, preparing meals, shopping, managing finances, etc.?: No Are you currently unemployed and looking for a job?: No Are you interested in more education?: No Currently or been in a relationship where the following occur: no concerns reported THRIVE Score: 0 AUDIT C Alcohol Use Questionnaire (AUDIT-C) 1. How often do you have a drink containing alcohol?: Monthly or less 2. How many drinks containing alcohol do you have on a typical day when you are drinking?: 1 or 2 Total Score: 1 LUNA-7 AMB Questionnaire LUNA-7 Date LUNA - 7 assessed: 12/20/23 Feeling nervous, anxious, or on edge: 0 = Not at all Not being able to stop or control worryin = Not at all Worrying too much about different things: 0 = Not at all Trouble relaxin = Not at all Being so restless that it is hard to sit still: 0 = Not at all Becoming easily annoyed or irritable: 0 = Not at all Feeling afraid as if something awful might happen: 0 = Not at all Total LUNA-7 score (0-4 normal; 5-9 mild; 10-14 moderate; 15-21 severe): 0 Source: Developed by Alia Padron Kurt Kroenke and colleagues, with an educational alfie from [employer]. Physical exam (Primary Care) Vital Signs: Last Vital Signs BP 110/62 12/20/23 15:06 Care Plan Goal for BP management: Blood pressure is stable. Continue current medications. BMI result Body Mass Index 36.6 BMI Assessment/Plan discussion: High (1 lb per week weight loss suggested.) BMI High, discussed plan: lifestyle, weight reduction, dietary and physical activity Tobacco/Smoking Status: Tobacco use Status Tobacco use date assessed 12/20/23 12/20/23 15:07 Patient Tobacco Use Status Never used Tobacco 12/20/23 15:07 e-Cigarette/Vaping Use Never Used 12/20/23 15:07 PHQ-9: PHQ-9 Score PHQ-9: Total score 0 12/31/23 15:18 Depression Screening Interpretation: Negative Thrive Assessment: Date of Thrive Assessment Date Thrive assessed 12/20/23 12/20/23 15:07 Currently or been in a relationship where the following occur: no concerns reported Advance Care Planning discussion: Exists, not on file Date of discussion: 12/20/23 Who was present: Patient Forms completed: Health Care Proxy Const General: cooperative and healthy appearing Nutritional Appearance: well nourished Orientation/consciousness: patient oriented x3 Limitations: no limitations HENMT Head: Yes normal to inspection Eyes General: appearance normal, both eyes and all related structures Neck Neck: Yes normal visual inspection Chest Chest palpation & inspection: normal palpation of entire chest wall Resp Effort & Inspection: normal respiratory effort Neuro General: patient oriented x3 Results AMB Hemoglobin A1c AMB Hemoglobin A1c 7.1 % Last Edit by CHALO Gomez on 12/20/23 15:17 Results Reviewed Results Reviewed: Laboratory Last Values Hgb A1c (Clinic) 7.1 % (4.0-6.0) H 12/20/23 15:16 Assessment and Plan Assessment & Plan (1) Incisional hernia: Code(s): K43.2 - Incisional hernia without obstruction or gangrene Plan: Condition is stable. (2) Bipolar 1 disorder: Code(s): F31.9 - Bipolar disorder, unspecified Plan: Condition is stable. Continue current medications. (3) Pure hypercholesterolemia: Code(s): E78.00 - Pure hypercholesterolemia, unspecified Plan: Condition is stable. (4) Type 2 diabetes mellitus without complications: Code(s): E11.9 - Type 2 diabetes mellitus without complications Plan: A1c is in range. Continue current medications. (5) Annual physical exam: Code(s): Z00.00 - Encounter for general adult medical examination without abnormal findings Plan: Blood work has been ordered. Will call with the results. Orders: Orders AMB Hemoglobin A1c 12/20/23 E11.9 - Type 2 diabetes mellitus without complications Coding Level of Care Code Est Pt Prev Care >65y(18018) Diagnoses Incisional hernia K43.2 Bipolar 1 disorder F31.9 Pure hypercholesterolemia E78.00 Type 2 diabetes mellitus without complications E11.9 Annual physical exam Z00.00 Additional Codes Vital Signs *Quality* - Advance Care Planning discussion: Exists, not on file ([id number])
[2023-12-20 15:06] VITALS: BP 110/62; BMI 36.6
== END 2023-12-20 16:16 | disposition home or self-care (01) ==
PROVIDERS: PCP Nurse Practitioner Family; Visit Provider Internal Medicine
DX: E11.9 Type 2 diabetes mellitus without complications (principal)
CPT/HCPCS: 1123F; 83036; 99397

== ENCOUNTER 2023-12-29 08:00 | Outpatient (REF) | payer MEDICARE, MEDICAID, SELFPAY ==
[2023-12-29 09:18] LABS: Hematocrit 43.3 % (37.0-47.0); Hemoglobin 14.4 g/dl (12.0-16.0); Mean Corpuscular HGB Conc 33.3 g/dl (31.0-35.0); Mean Corpuscular Hemoglobin 29.6 pg (27.0-33.0); Mean Corpuscular Volume 89.1 fL (80.0-98.0); Mean Platelet Volume 9.4 fL (9.4-12.3); Platelet Count 358 X10*3/uL (160-400); Red Blood Count 4.86 X10*6/uL (4.20-5.50); Red Cell Distribution Width 13.4 % (11.0-16.0); White Blood Count 7.7 X10*3/uL (4.8-10.8)
[2023-12-29 09:26] LABS: Estimated Average Glucose 146 mg/dL; Hemoglobin A1c % 6.7 % (<6.0)
[2023-12-29 09:26] LABS: Appearance Urine Clear; Color Urine Dark Yellow; Glucose Urine UA Negative (Negative); Leukocyte Esterase Urine Trace (Negative); Nitrite Urine Negative (Negative); Specific Gravity - Urine 1.015 (1.005-1.025); UMIC TRIGGER UA YES; Urine Blood Negative (Negative); Urine Ketones Negative (Negative); Urine Protein Negative (Neg-Trace)
[2023-12-29 09:34] LABS: Bacteria Urine Trace (None Seen); Hyaline Casts Urine 0-2 /LPF (0-2); RBC Urine 0-2 /HPF (0-2); WBC Urine 0-5 /HPF (0-5)
[2023-12-29 09:58] LABS: Creatinine Urine 88.38 mg/dL; Microalbum/Creatinine Ratio Ur 5.6 ug/mg cr (<30)
[2023-12-29 10:08] LABS: Alanine Aminotransferase 23 U/L (0-31); Alkaline Phosphatase 67 U/L (39-117); Anion Gap 13 (12-20); Aspartate Amino Transferase 21 U/L (5-31); Bilirubin Direct 0.1 mg/dL (0.0-0.5); Bilirubin Total 0.4 mg/dL (0.0-1.0); Blood Urea Nitrogen 15 mg/dL (9-16); Calcium 9.1 mg/dL (8.4-10.2); Carbon Dioxide 27 mmol/L (22-29); Chloride 108 mmol/L (96-108); Cholesterol 145 mg/dL (<200); Estimated Glomerular Filt Rate > 60; Glucose Random 113 mg/dL (60-115); HDL Cholesterol 45 mg/dL (>40); LDL Cholesterol Calculated 74 mg/dL (<100); Potassium 3.8 mmol/L (3.3-5.1); Sodium 144 mmol/L (135-145); Total Protein 6.5 g/dL (6.5-8.0); Triglycerides 134 mg/dL (<150)
== END 2023-12-29 08:01 | disposition home or self-care (01) ==
LOC: HO.LAB 08:00
PROVIDERS: PCP Internal Medicine; Visit Provider Internal Medicine
DX: E11.9 Type 2 diabetes mellitus without complications (principal)
CPT/HCPCS: 36415; 80048; 80061; 80076; 81001; 82043; 82570; 83036; 84443; 85027

== ENCOUNTER 2024-04-05 09:57 | Outpatient (AMB) | payer MEDICARE, MEDICAID, SELFPAY ==
--- NOTE | 2024-04-05 10:28 | A.OFFPC_ITS ---
Vital Signs 04/05/24 10:29 Height 5 ft 0.5 in Weight 191 lb 6 oz BMI 36.8 BP 110/64 Blood Pressure Location Lt brachial Position Sitting Pulse 87 Pulse Source Pulse Oximeter Pulse Oximetry (%) 97 Oxygen Delivery Method Room Air Intake Visit Reasons: 3mth f/u Intake Note: Patient is here to follow up on DM, HTN, HYpothyroidism, Hypercholesterolemia. Facilities Flight Check Pilot Required: No Litigator: Not Required per policy Accompanied by: Self / Same As Patient Allergies ether [ETHER] Allergy (Severe, Verified 04/10/24 15:45) DIFFICULT EMERGENCE ANESTHESIA codeine [CODEINE] Allergy (Intermediate, Verified 04/10/24 15:45) VOMITING Medication List - Last Reconciled 04/10/24 by Sy Stallings MD albuterol sulfate 90 mcg/actuation (Ventolin HFA) 2 puffs inhalation Q6H PRN amlodipine 2.5 mg PO DAILY 3 months blood pressure test kit-large (Advocate Blood Pressure Monitor kit) As directed blood sugar diagnostic (FreeStyle Lite Strips) As directed to test blood glucose 3x daily blood-glucose meter (FreeStyle Lite Meter kit) DX: E11.9, test blood sugar 3 times a day, duration 999 days bupropion HCl XL 300 mg PO DAILY buspirone 20 mg (2 x 10 mg) PO BID escitalopram oxalate (Lexapro) 20 mg PO DAILY fenofibrate 160 mg PO DAILY inhalational spacing device (Aerochamber MV spacer) As directed inhalational spacing device (RiteFlo Aerochamber) As directed insulin glargine (Lantus Solostar U-100 Insulin) 34 units (0.34 mL) subcut QPM 30 days lancets (FreeStyle Lancets) USE DIRECTED 3 TIMES A DAY levothyroxine 50 mcg PO DAILY omeprazole 40 mg PO DAILY pen needle, diabetic (BD Ultra-Fine Short Pen Needle) subcut 2 to 3 times a day; quetiapine ER 300 mg PO BEDTIME repaglinide 2 mg PO BID rosuvastatin 20 mg PO DAILY Tobacco use date assessed: 04/05/24 Fall risk assessment: No Falls in past year Last assessed Fall Risk: 04/05/24 Dental Screening Dental Screen Date: 12/20/23 HPI 3mth f/u HPI Details 73-year-old female presents to the offic e to discuss her chronic medical conditions. Patient is compliant with medications and reporting no side effects. Able to function and do all activities of daily living. [facility] Medical History Hiatal hernia Pre-op evaluation Dyspnea on exertion Cataract, right eye Tubular adenoma of colon Primary generalized (osteo)arthritis Surgical History History of cataract surgery History of mastectomy S/P colon resection History of section Family History Father No problems noted. Mother No problems noted. Social History Household Members: [facility] Are you a primary rental boats caretaker to a significant other at home: No Do you presently have visiting nurse or other home services: No Alcohol intake: current Alcohol intake frequency: holidays/special occasions only Patient Tobacco Use Status: Never used Tobacco e-Cigarette/Vaping Use: Never Used Second Hand Smoke Exposure: No service: No Current occupational status: retired Current occupation: Medical billing Current occupational exposures/hazards: No Cognitive needs: No Hearing needs: No Vision needs: No Questionnaire Thrive Questionnaire Date Thrive assessed: 12/20/23 LUNA-7 AMB Questionnaire LUNA-7 Date LUNA - 7 assessed: 12/20/23 Source: Developed by Drs. Norberto Crump, Alia Cortez, Darron Joseph and colleagues, with an educational alfie from [employer]. Physical exam (Primary Care) Vital Signs: Last Vital Signs Pulse 87 04/05/24 10:29 BP 110/64 04/05/24 10:29 Pulse Ox 97 04/05/24 10:29 Oxygen Delivery Method Room Air 04/05/24 10:29 BMI result Body Mass Index 36.8 Tobacco/Smoking Status: Tobacco use Status Tobacco use date assessed 04/05/24 04/05/24 10:35 Patient Tobacco Use Status Never used Tobacco 04/05/24 10:35 e-Cigarette/Vaping Use Never Used 04/05/24 10:35 Thrive Assessment: Date of Thrive Assessment Date Thrive assessed 12/20/23 04/05/24 10:35 Const General: cooperative and healthy appearing Nutritional Appearance: well nourished Orientation/consciousness: patient oriented x3 Limitations: no limitations HENMT Head: Yes normal to inspection Eyes General: appearance normal, both eyes and all related structures Neck Neck: Yes normal visual inspection Chest Chest palpation & inspection: normal palpation of entire chest wall Resp Effort & Inspection: normal respiratory effort Neuro General: patient oriented x3 Results AMB Hemoglobin A1c AMB Hemoglobin A1c 7.6 % Last Edit by CHALO Gomez on 04/05/24 10:44 Results Reviewed Results Reviewed: Laboratory Last Values Hgb A1c (Clinic) 7.6 % (4.0-6.0) H 04/05/24 10:27 Assessment and Plan Assessment & Plan (1) Hypothyroidism (acquired): Code(s): E03.9 - Hypothyroidism, unspecified Plan: Blood work ordered. Will call with the results. Continue medications at same dosage. Orders: Orders AMB Hemoglobin A1c 04/05/24 E11.9 - Type 2 diabetes mellitus without complications Coding Level of Care Code Est Pt Level 3 (23547) Complex EM visit Add On G2211 Diagnoses Hypothyroidism (acquired) E03.9
[2024-04-05 10:29] VITALS: BP 110/64; PULSE 87; O2SAT 97; BMI 36.8
== END 2024-04-05 10:54 | disposition home or self-care (01) ==
PROVIDERS: PCP Internal Medicine; Visit Provider Internal Medicine
DX: E11.9 Type 2 diabetes mellitus without complications (principal)
CPT/HCPCS: 83036; 99213; G2211

== ENCOUNTER 2024-07-12 09:51 | Outpatient (AMB) | payer MEDICARE, MEDICAID, SELFPAY ==
--- NOTE | 2024-07-12 10:13 | A.OFFPC_ITS ---
Vital Signs 07/12/24 10:34 Height 5 ft 0.5 in Weight 190 lb 4 oz BMI 36.5 BP 120/70 Blood Pressure Location Lt brachial Position Sitting Pulse 83 Pulse Source Pulse Oximeter Pulse Oximetry (%) 96 Oxygen Delivery Method Room Air Intake Visit Reasons: 3 Month F/U Intake Note: Patient is here to follow up on DM, HTN, Asthma, Polyarthralgia. Aluminum Container Tester Required: No Soda Fountain Manager: Not Required per policy Accompanied by: Self / Same As Patient Allergies ether [ETHER] Allergy (Severe, Verified 07/12/24 11:06) DIFFICULT EMERGENCE ANESTHESIA codeine [CODEINE] Allergy (Intermediate, Verified 07/12/24 11:06) VOMITING Tobacco use date assessed: 07/12/24 Fall risk assessment: 2 + Falls in past year Last assessed Fall Risk: 07/12/24 Dental Screening Dental Screen Date: 12/20/23 HPI 3 Month F/U HPI Details 74-year-old female presents to the offic e to discuss her chronic medical conditions. Patient's blood sugar was elevated as she was out of her prescription. Repaglinide was recently filled. She is compliant with all medications and reporting no side effects. Able to function and do all activities of daily living. [facility] Medical History Hiatal hernia Pre-op evaluation Dyspnea on exertion Cataract, right eye Tubular adenoma of colon Primary generalized (osteo)arthritis Surgical History History of cataract surgery History of mastectomy S/P colon resection History of section Family History Father No problems noted. Mother No problems noted. Social History Household Members: Family Housing: Condominium Are you a primary long term care social worker to a significant other at home: No Do you presently have visiting nurse or other home services: No Alcohol intake: current Alcohol intake frequency: holidays/special occasions only Patient Tobacco Use Status: Never used Tobacco e-Cigarette/Vaping Use: Never Used Second Hand Smoke Exposure: No service: No Current occupational status: retired Current occupation: Medical billing Current occupational exposures/hazards: No Cognitive needs: No Hearing needs: No Vision needs: No Questionnaire Thrive Questionnaire Date Thrive assessed: 12/20/23 Are you currently unemployed and looking for a job?: No AUDIT C Alcohol Use Questionnaire (AUDIT-C) 2. How many drinks containing alcohol do you have on a typical day when you are drinking?: 1 or 2 3. How often do you have six or more drinks on one occasion?: Never Total Score: 0 LUNA-7 AMB Questionnaire LUNA-7 Date LUNA - 7 assessed: 12/20/23 Source: Developed by Drs. Norberto Crump, Alia Cortez, Darron Joseph and colleagues, with an educational alfie from [employer]. Physical exam (Primary Care) Vital Signs: Last Vital Signs Pulse 83 07/12/24 10:34 BP 120/70 07/12/24 10:34 Pulse Ox 96 07/12/24 10:34 Oxygen Delivery Method Room Air 07/12/24 10:34 BMI result Body Mass Index 36.5 Tobacco/Smoking Status: Tobacco use Status Tobacco use date assessed 07/12/24 07/12/24 10:15 Patient Tobacco Use Status Never used Tobacco 07/12/24 10:15 e-Cigarette/Vaping Use Never Used 07/12/24 10:15 Thrive Assessment: Date of Thrive Assessment Date Thrive assessed 12/20/23 07/12/24 10:15 Const General: cooperative and healthy appearing Nutritional Appearance: well nourished Orientation/consciousness: patient oriented x3 Limitations: no limitations HENMT Head: Yes normal to inspection Eyes General: appearance normal, both eyes and all related structures Neck Neck: Yes normal visual inspection Chest Chest palpation & inspection: normal palpation of entire chest wall Resp Effort & Inspection: normal respiratory effort Neuro General: patient oriented x3 Office Procedures Flu Questionnaire Does the patient have a severe egg allergy?: No Does the patient have severe life threatening allergies?: No Does the patient have a fever or illness today?: No Has the patient ever had Guillain-[place] Syndrome?: No Has the patient ever had any past reaction to a flu shot?: No Results AMB Hemoglobin A1c AMB Hemoglobin A1c 7.9 % Last Edit by CHALO Gomez on 07/12/24 10:45 Immunizations Fluarix Triv 0520-4565 (PF) 45 mcg (15 mcg x 3)/0.5 mL IM syringe Performing Provider: Sy Stallings MD Performing Location: [facility] Administered by: Carolina Trammell LPN on 07/12/24 10:50 Dose Route Admin Location Dispensed Lot Number Expiration Date NDC Motorcycle Mechanic 0.5 mL IM Left Deltoid 0.5 mL [id number] 04/08/25 13297-558-73 [employer] VIS Given Date VIS Provided VIS Publication Date 07/12/24 Single Vaccine 21 Eligibility Eligibility Date Funding Source Not [facility] Eligible 07/12/24 Private Results Reviewed Results Reviewed: Laboratory Last Values Hgb A1c (Clinic) 7.9 % (4.0-6.0) H 07/12/24 10:12 Coding Level of Care Code Est Pt Level 4 (81258) Complex EM visit Add On G2211 Diagnoses Type 2 diabetes mellitus without complications E11.9 Contusion, hand S60.229A Assessment & Plan Assessment & Plan (1) Type 2 diabetes mellitus without complications: Code(s): E11.9 - Type 2 diabetes mellitus without complications Category: Medical Plan: A1c increased to 7.9. Attributed to missed february medications. (2) Contusion, hand: Code(s): S60.229A - Contusion of unspecified hand, initial encounter Plan X ray images ordered Orders: Orders AMB Hemoglobin A1c Today E11.9 - Type 2 diabetes mellitus without complications XR hand LT min 3V Today T14.8XXA - Other injury of unspecified body region, initial encounter Influenza [id number] Immunization Today Z23 - Encounter for immunization
[2024-07-12 10:34] VITALS: BP 120/70; PULSE 83; O2SAT 96; BMI 36.5
== END 2024-07-12 11:07 | disposition home or self-care (01) ==
PROVIDERS: PCP Internal Medicine; Visit Provider Internal Medicine
DX: E11.9 Type 2 diabetes mellitus without complications (principal); S60.229A Contusion of unspecified hand, initial encounter; Z23 Encounter for immunization

== ENCOUNTER → 2024-07-12 09:51 | Outpatient (BNVA) | payer MEDICARE, MEDICAID, SELFPAY | PROVIDERS: PCP Internal Medicine; Visit Provider Internal Medicine | DX: Z23 Encounter for immunization (principal); E11.9 Type 2 diabetes mellitus without complications; J45.909 Unspecified asthma, uncomplicated; S60.222D Contusion of left hand, subsequent encounter | CPT/HCPCS: 83036; 90471; 90656; 99212 ==

== ENCOUNTER 2024-07-13 12:01 | Outpatient (REF) | payer MEDICARE, MEDICAID, SELFPAY ==
--- NOTE | ~2024-07-13 | XR_ITS ---
EXAMINATION: XR HAND, LEFT CLINICAL INFORMATION: Pain. COMPARISON: Left hand radiographs dated 05/27/2022. TECHNIQUE: PA, lateral, and oblique views of the left hand. FINDINGS: No acute fracture or dislocation. Joint space narrowing with marginal osteophytes at the first carpometacarpal joint as well as throughout the interphalangeal joints, progressed when compared to the prior examination. 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 No abnormal soft tissue calcification. 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 Electronically signed by: Barak Lin MD 08/22/2024 10:05 AM [facility]
== END 2024-07-13 12:02 | disposition home or self-care (01) ==
LOC: HO.XRAY 12:01
PROVIDERS: PCP Internal Medicine; Visit Provider Internal Medicine
DX: S69.92XD Unspecified injury of left wrist, hand and finger(s), subsequent encounter (principal)
CPT/HCPCS: 73130

== ENCOUNTER 2024-10-28 | Outpatient (REF) | payer MEDICARE, MEDICAID, SELFPAY ==
[2024-10-29 11:16] LABS: OBS Lot 50422
[2024-10-29 11:20] LABS: OBS Int Ctl Valid YES; OBS1 NEGATIVE (NEGATIVE); OBS2 NEGATIVE (NEGATIVE); OBS3 NEGATIVE (NEGATIVE)
== END 2024-10-28 00:01 | disposition home or self-care (01) ==
LOC: HO.LNP
PROVIDERS: Visit Provider Internal Medicine
DX: K59.09 Other constipation (principal); R93.3 Abnormal findings on diagnostic imaging of other parts of digestive tract; Z86.0100 Personal history of colon polyps, unspecified
CPT/HCPCS: 82270

== ENCOUNTER 2025-01-31 10:12 | Outpatient (AMB) | payer MEDICARE, MEDICAID, SELFPAY ==
--- NOTE | 2025-01-31 10:25 | A.OFFPC_ITS ---
Vital Signs 01/31/25 10:27 Height 5 ft 2 in Weight 184 lb 6 oz BMI 33.7 BP 122/60 Blood Pressure Location Lt brachial Position Sitting Pulse 82 Pulse Source Pulse Oximeter Temp 97.3 F Temp Source Temporal Artery Scan Pulse Oximetry (%) 96 Oxygen Delivery Method Room Air Intake Visit Reasons: 3 month f/u Intake Note: Patient is here to follow up on DM, GERD, HTN. Orchid Hand Required: No Practice Assistant: Not Required per policy Accompanied by: Self / Same As Patient Allergies ether [ETHER] Allergy (Severe, Verified 01/31/25 10:40) DIFFICULT EMERGENCE ANESTHESIA codeine [CODEINE] Allergy (Intermediate, Verified 01/31/25 10:40) VOMITING Medication List - Last Reconciled 01/31/25 by Teresa Alba PA-C albuterol sulfate 90 mcg/actuation (Ventolin HFA) 2 puffs inhalation Q6H PRN amlodipine 2.5 mg PO DAILY 3 months blood pressure test kit-large ([employer] Blood Pressure Monitor kit) As directed blood sugar diagnostic (FreeStyle Lite Strips) As directed to test blood glucose 3x daily blood-glucose meter (FreeStyle Lite Meter kit) DX: E11.9, test blood sugar 3 times a day, duration 999 days bupropion HCl XL 300 mg PO DAILY buspirone 20 mg (2 x 10 mg) PO BID escitalopram oxalate (Lexapro) 20 mg PO DAILY fenofibrate 160 mg PO DAILY inhalational spacing device (Aerochamber MV spacer) As directed inhalational spacing device ([employer] Aerochamber) As directed insulin NPH and regular human 100 unit/mL (70-30) (Novolin 70-30 FlexPen U-100 Insulin) 30 units (0.3 mL) subcut DAILY lancets (FreeStyle Lancets) USE DIRECTED 3 TIMES A DAY levothyroxine 50 mcg PO DAILY omeprazole 40 mg PO DAILY pen needle, diabetic (BD Ultra-Fine Short Pen Needle) subcut 2 to 3 times a day; quetiapine ER 300 mg PO BEDTIME repaglinide 2 mg PO BID rosuvastatin 20 mg PO DAILY Tobacco use date assessed: 01/31/25 Fall risk assessment: No Falls in past year Last assessed Fall Risk: 01/31/25 Dental Screening Dental Screen Date: 01/31/25 Did you have a dental visit in the last 12 months?: No Did you have a dental problem in the last 6 months where you did not have access to dental care?: No Was dental information given to patient?: No HPI 3 month f/u HPI Details The patient is a 74-year-old female presenting for a follow-up visit primarily concerning Type 2 Diabetes Mellitus management and recent changes in her insulin therapy. She transitioned from long-acting to 70/30 combination insulin, initially experiencing nocturnal hypoglycemia which resolved upon shifting administration to mornings. This has helped stabilize her blood glucose levels, reflected in a decrease in her A1c from 7.6 to 7.0. She also takes Repaglinide at night to manage her diabetes. The patient's abdominal history includes hernias and a wavy intestinal anatomy from past surgeries, complicating colonoscopy procedures and necessitating alternative colorectal screening methods. Her insurance has driven the change to combination insulin, influencing her diabetes management strategy. Her additional concern is hearing loss, noting difficulty understanding her son and seeking evaluation for this impairment. Social History - Functional status: Independently perfo vivian household duties. - Insurance: Modifies medication usage b ased on insurance coverage. - Dental care: Difficulty accessing dent al services that accept [employer]. [facility] Medical History (Updated 01/31/25 @ 11:09 by Teresa Alba PA-C) Class 1 obesity with body mass index (BMI) of 33.0 to 33.9 in adult Follow-up exam, 3-6 months since previous exam Decreased hearing Hiatal hernia Pre-op evaluation Dyspnea on exertion Cataract, right eye Tubular adenoma of colon Primary generalized (osteo)arthritis Surgical History History of colonoscopy (~01/26/18) History of cataract surgery History of mastectomy S/P colon resection History of section Family History Father No problems noted. Mother No problems noted. Social History Household Members: Family Housing: Condominium Are you a primary healthcare consultant to a significant other at home: No Do you presently have visiting nurse or other home services: No Alcohol intake: current Alcohol intake frequency: holidays/special occasions only Patient Tobacco Use Status: Never used Tobacco e-Cigarette/Vaping Use: Never Used Second Hand Smoke Exposure: No service: No Current occupational status: retired Current occupation: Medical billing Current occupational exposures/hazards: No Cognitive needs: No Hearing needs: No Vision needs: No Questionnaire PHQ-9 Over the last 2 weeks, how often have you been bothered by any of the following problems? 1. Little interest or pleasure in doing things: not at all 2. Feeling down, depressed, or hopeless: not at all 3. Trouble falling or staying asleep, or sleeping too much: not at all 4. Feeling tired or having little energy: not at all 5. Poor appetite or overeating: not at all 6. Feeling bad about yourself - or that you are a failure or have let yourself or your family down: not at all 7. Trouble concentrating on things, such as reading the newspaper or watching television: not at all 8. Moving or speaking so slowly that other people could have noticed. Or the opposite - being so fidgety or restless that you have been moving around a lot more than usual: not at all 9. Thoughts that you would be better off or of hurting yourself in some way: not at all Total score: 0 Depression Screening Interpretation: Negative Depression Screening Done: Yes 86309 - PHQ-9 Billing: Yes Source: Developed by Drs. Norberto Crump, Alia Cortez, Darron Joseph and colleagues, with an educational alfie from [employer]. Thrive Questionnaire Date Thrive assessed: 01/31/25 I am a: Patient What is your living situation today?: I have a steady place to live Within the past 12 months, did the food you bought not last and you didn't have the money to get more?: Never true Within the past 12 months, did you worry whether your food would run out before you got money to buy more?: Never true Do you have trouble paying for medicines?: No Do you have trouble getting transportation to medical appointments?: No Do you have trouble paying your heating and electricity bill?: No Do you have trouble taking care of your child, family member or friend?: No Do you have trouble with day-to-day activities such as bathing, preparing meals, shopping, managing finances, etc.?: No Are you currently unemployed and looking for a job?: No Are you interested in more education?: No Please select the resources that you would like help with: None Currently or been in a relationship where the following occur: No concerns reported THRIVE Score: 0 AUDIT C Alcohol Use Questionnaire (AUDIT-C) 2. How many drinks containing alcohol do you have on a typical day when you are drinking?: 1 or 2 3. How often do you have six or more drinks on one occasion?: Never Total Score: 0 Score Reviewed/Action Taken: No LUNA-7 AMB Questionnaire LUNA-7 Date LUNA - 7 assessed: 01/31/25 Feeling nervous, anxious, or on edge: 1 = Several days Not being able to stop or control worryin = Nearly every day Worrying too much about different things: 3 = Nearly every day Trouble relaxin = More than half the days Being so restless that it is hard to sit still: 0 = Not at all Becoming easily annoyed or irritable: 0 = Not at all Feeling afraid as if something awful might happen: 0 = Not at all Total LUNA-7 score (0-4 normal; 5-9 mild; 10-14 moderate; 15-21 severe): 9 Source: Developed by Drs. Norberto Crmup, Alia Cortez, Darron Joseph and colleagues, with an educational alfie from [employer]. LUNA-7 Assessment Billing LUNA-7 Assessment Tool: LUNA-7 Assessment 34448 Review of Systems Const Details: - Endocrine: Reports insulin regimen adjustment issues initially, now stable. - Gastrointestinal: Denies abdominal pain; acknowledges known hernias. - Auditory: Reports decreased hearing acuity. - Cardiovascular/Respiratory: Denies chest pain or shortness of breath. Physical exam (Primary Care) Vital Signs: Last Vital Signs Temp 97.3 F 01/31/25 10:27 Pulse 82 01/31/25 10:27 BP 122/60 01/31/25 10:27 Pulse Ox 96 01/31/25 10:27 Oxygen Delivery Method Room Air 01/31/25 10:27 Care Plan Goal for BP management: <130/90 at Goal BMI result Body Mass Index 33.7 BMI Assessment/Plan discussion: High BMI High, discussed plan: lifestyle, weight reduction, dietary, physical activity and alcohol moderation Tobacco/Smoking Status: Tobacco use Status Tobacco use date assessed 01/31/25 01/31/25 10:35 Patient Tobacco Use Status Never used Tobacco 01/31/25 10:35 e-Cigarette/Vaping Use Never Used 01/31/25 10:35 PHQ-9: PHQ-9 Score PHQ-9: Total score 0 01/31/25 10:35 Depression Screening Interpretation: Negative Thrive Assessment: Date of Thrive Assessment Date Thrive assessed 01/31/25 01/31/25 10:35 Currently or been in a relationship where the following occur: No concerns reported Const Other: Appearance: Alert. Oriented X3. No acute distress. Head: Normal external exam. Normocephalic. Atraumatic. Eyes: Pupils are equal, round, and reactive to light. Extraocular movements intact. Conjunctiva and sclera normal. Eyelids normal. Ears: External auditory canal normal. Tympanic membranes normal. Decreased hearing noted. Throat: Pharynx normal. Uvula midline. Moist mucous membranes. Neck: Normal inspection. Neck supple. Full range of motion. No adenopathy. Thyroid Normal. No meningeal signs. No neck mass noted. Cardiovascular: Normal heart rate and rhythm. Heart sound normal. No murmurs noted. Pulses normal throughout. Respiratory: No respiratory distress. Painless inspiration. Breath sounds normal. No wheezes/rales/rhonchi noted. Chest nontender. No accessory muscle usage noted or decreased air movement noted. Abdomen: Soft and nontender. Bowel sounds normal in all 4 quadrants. Chronic large Hernia noted to right side of abdomen, not incarcerated easily reducible. No organomegaly noted. No visible injury noted. Back: No costovertebral angle tenderness. Full range of motion noted. Skin: Skin warm and dry. Normal skin color. Normal skin turgor. No rashes/lesions/lacerations noted. Extremities: No lower extremity edema. Extremities exhibit normal range of motion. Extremities nontender. Neuro: Oriented X 3. No motor deficit. No sensory deficit. Reflexes normal. Results AMB Hemoglobin A1c AMB Hemoglobin A1c 7.0 % Last Edit by CHALO Gomez on 01/31/25 10:40 Results Reviewed Results Reviewed: - Labs: HbA1c 7.0. - Procedures: Cologuard test mentioned (results negative). Coding Level of Care Code Est Pt Level 4 (39625) Complex EM visit Add On G2211 Diagnoses Follow-up exam, 3-6 months since previous exam Z09 Decreased hearing H91.90 Ventral hernia K43.9 Chronic GERD K21.9 Pure hypercholesterolemia E78.00 Hypertension, essential I10 Type 2 diabetes mellitus without complications E11.9 Hypothyroidism (acquired) E03.9 Bipolar 1 disorder F31.9 Class 1 obesity with body mass index (BMI) of 33.0 to 33.9 in adult E66.811; Z6 8.33 Additional Codes PHQ-9 - 02478 - PHQ-9 Billing: Yes ([id number]) LUNA-7 Assessment Billing - LUNA-7 Assessment Tool: LUNA-7 Assessment 13499 ([id number]) Assessment & Plan Assessment & Plan (1) Follow-up exam, 3-6 months since previous exam: Code(s): Z09 - Encounter for follow-up examination after completed treatment for conditions other than malignant neoplasm Category: Medical (2) Decreased hearing: Code(s): H91.90 - Unspecified hearing loss, unspecified ear Category: Medical Plan: Referral for audiological evaluation due to reported hearing impairment. Consideration for assistive devices, potential ENT referral. (3) Ventral hernia: Code(s): K43.9 - Ventral hernia without obstruction or gangrene Category: Medical Plan: The patient's abdominal status involves management of known hernias and avoidance of invasive procedures. Continued monitoring of symptomatology with alternative screening methods for colorectal health. Condition is chronic and stable continue to monitor. (4) Chronic GERD: Code(s): K21.9 - Gastro-esophageal reflux disease without esophagitis Category: Medical Plan: Patient to continue 40mg of omeprazole daily. Condition is chronic and stable. (5) Pure hypercholesterolemia: Code(s): E78.00 - Pure hypercholesterolemia, unspecified Category: Medical Plan: Patient to continue Rosuvastatn 20 mg daily. Condition is chronic and stable. (6) Hypertension, essential: Code(s): I10 - Essential (primary) hypertension Category: Medical Plan: Goal <130/90. Patient to continue amlodipine 2.5 mg daily. Continue is chronic and stable. (7) Type 2 diabetes mellitus without complications: Code(s): E11.9 - Type 2 diabetes mellitus without complications Category: Medical Plan: Continued management of Type 2 Diabetes Mellitus through combination insulin therapy, morning dosing to avoid nocturnal hypoglycemia, and ongoing monitoring of hypoglycemic episodes. Repaglinide support overnight glycemic control. Ongoing prescription refills ensured. Condition is chronic and stable continue to monitor. (8) Hypothyroidism (acquired): Code(s): E03.9 - Hypothyroidism, unspecified Category: Medical Plan: Patient to continue levothyroxine 50 mcg daily. Condition is chronic and stable continue to monitor. (9) Bipolar 1 disorder: Code(s): F31.9 - Bipolar disorder, unspecified Category: Medical Plan: Patient is and continue seeing therapist/psychiatrist and continue medications as prescribed which include bupropion, buspirone, Lexapro and quetiapine. Condition is chronic and stable continue to monitor. (10) Class 1 obesity with body mass index (BMI) of 33.0 to 33.9 in adult: Code(s): E66.811 - Obesity, class 1; Z68.33 - Body mass index [BMI] 33.0-33.9, adult Category: Medical Plan: Patient to improve her diet and exercise regimen. Condition is chronic and stable continue to monitor. Plan Plan Patient was informed and verbally consented to the use of an ambient scribe for clinic note documentation during this visit. 1. Type 2 Diabetes Mellitus Continued management of Type 2 Diabetes Mellitus through combination insulin therapy, morning dosing to avoid nocturnal hypoglycemia, and ongoing monitoring of hypoglycemic episodes. Repaglinide support overnight glycemic control. Hiram oing prescription refills ensured. 2. Abdominal Hernia The patient's abdominal status involves management of known hernias and avoidance of invasive procedures. Continued monitoring of symptomatology with alternative screening methods for colorectal health. 3. Hearing Impairment Referral for audiological evaluation due to reported hearing impairment. Consideration for assistive devices, potential ENT referral. During this visit, I discussed with the patient her various health concerns and the management strategies in place. For Type 2 Diabetes Mellitus, we addressed her insulin regimen adjustment, dealing with insurance restrictions, and optimizing administration timing, leading to improved glucose control and A1c levels. Concerning her hernial issues, we reviewed the challenges posed by her abdominal anatomy, opting for alternative colorectal monitoring methods. Hearing concerns were acknowledged, and plans for hearing evaluation and possible ENT involvement were initiated. Further, we reviewed her medication refills and coordinated referrals to appropriate specialties as necessary. Follow-up and return precautions were agreed upon. Orders: Orders AMB Hemoglobin A1c Today E11.9 - Type 2 diabetes mellitus without complications Lipid Panel Today Z00.00 - Encounter for general adult medical examination without abnormal findings Vitamin B12 and Folate Today Z00.00 - Encounter for general adult medical examination without abnormal findings Vitamin D 25-OH Total Today Z00.00 - Encounter for general adult medical examination without abnormal findings TSH reflex Free T4 Today Z00.00 - Encounter for general adult medical examination without abnormal findings Magnesium Today Z00.00 - Encounter for general adult medical examination without abnormal findings MM screening mammo BI Today Z12.31 - Encounter for screening mammogram for malignant neoplasm of breast Referrals Speech and Hearing Referral H91.90 - Unspecified hearing loss, unspecified ear Ear/Nose/Throat Referral H91.90 - Unspecified hearing loss, unspecified ear Medications: Changed From repaglinide 2 mg PO BID 180 tabs 1RF To repaglinide 2 mg PO BID 90 days 180 tabs 1RF Refilled fenofibrate 160 mg PO DAILY 90 tabs 1RF E78.00 - Pure hypercholesterolemia, unspecified amlodipine 2.5 mg PO DAILY 3 months 90 tabs 1RF I10 - Essential (primary) hypertension omeprazole 40 mg PO DAILY 90 caps 1RF albuterol sulfate 90 mcg/actuation (Ventolin HFA) 2 puffs inhalation Q6H PRN 6.7 grams 0RF shortness of breath or wheezing insulin NPH and regular human 100 unit/mL (70-30) (Novolin 70-30 FlexPen U-100 Insulin) 30 units (0.3 mL) subcut DAILY 15 mL 3RF levothyroxine 50 mcg PO DAILY 90 tabs 1RF rosuvastatin 20 mg PO DAILY 90 tabs 2RF Patient Instructions: - Take insulin as directed in the morning to avoid low blood sugar at night. - Monitor blood sugar levels consistently. - Follow up on hearing test referral and consider ENT consultation if required. - Consult provided list of dentists accepting [facility] [address] [facility] for dental care. - Schedule follow-up appointment in six months or sooner if necessary. - Adhere to prescribed medication regimen and fill prescriptions as refilled.
[2025-01-31 10:27] VITALS: BP 122/60; PULSE 82; TEMP 36.3; O2SAT 96; BMI 33.7
--- OUTSIDE RECORDS SUMMARY | 2025-01-31 11:45 | XMS_ITS ---
Author Organization [facility] Address [address] [place] [id number] Care Team Providers Care [employer] Processor Name Role Phone MYKE SANDS NP Primary Care Provider Norberto Hernandez Unavailable [phone] Allergies Allergen (clinical drug ingredient) Drug/Non Drug Allergy documented on EMR Reaction Allergy Type Onset Date Status codeine Codeine Sulfate Unknown Drug Allergy A ctive ether derivatives (uncoded) Unknown Allergy Active REASON FOR VISIT Patient presents today for a colon screening Medications Medication SIG (Take, Route, Frequency, Duration) Notes Start Date End Date Status amLODIPine Besylate 2.5 MG TAKE 1 TABLET BY MOUTH EVERY DAY Oral for 90 Active Calcium 1 tab Oral Active Biotin 10 MG Orally Active Multivitamin Adult - Orally Active Ventolin HFA 108 (90 Base) MCG/ACT INHALE 2 PUFFS EVERY 6 HOURS NEEDED FOR SHORTNESS OF BREATH OR WHEEZING Inhalation for 25 Activ e Repaglinide 0.5 MG TAKE ONE TABLET BY M OUTH THREE TIMES DAILY 15-30 MINUTES BEFORE MEALS Oral for 30 Active Rosuvastatin Calcium 20 MG TAKE (1) TABL ET DAILY. Oral for 30 Active SEROquel XR 300 MG TAKE ONE TABLET AT B EDTIME Oral for 30 Active Celecoxib 200 MG TAKE (1) CAPSULE TWI CE DAILY NEEDED. Oral for 30 Active Lexapro 20 MG TAKE ONE TABLET EVER Y DAY AT BEDTIME Oral for 30 Active Levothyroxine Sodium 25 MCG TAKE ONE TABLET BY MOUTH EVERY DAY Oral for 30 Active Letrozole 2.5 MG TAKE (1) TABLET MARYBETH Y. Oral for 30 Active busPIRone HCl 10 MG TAKE (2) TABLETS TWI CE DAILY. Oral for 30 Active Lantus SoloStar 100 UNIT/ML INJECT 15 UNITS SUBCUTANEOUSLY EVERY DAY Subcutaneous for 90 Active Omeprazole 20 MG TAKE 1 CAPSULE ONCE DAILY 30 MINUTES TO 1 HOUR BEFORE MEALS Oral for 30 Active Social History Tobacco Use: Social History Observation Description Date Details (start date - stop date) Never Smoker NA - NA Tobacco Use/Smoking Question Answer Notes Patient is a nonsmoker Alcohol Screen Question Answer Notes Did you have a drink contain ing alcohol in the past year? Yes How often did you have a dri nk containing alcohol in the past year? Monthly or less (1 point) How often did you have 6 or more drinks on one occasion in the past year? Never (0 point) Points 1 Interpretation Negative Section Notes: Nonsmoker; very occasional h oliday drink Problems Problem Type SNOMED Code ICD Code Onset Dates Problem Status W/U Status Risk Notes Problem Chronic constipation (467340072) Chronic constipation (K59.09) Active confirmed Problem Imaging of gastrointestinal tract abnormal (finding) (582797053) Abnormal finding on GI tract imaging (R93.3) Active confirmed Problem History of polyp of colon (situation) (539063822) Personal history of colonic polyps (Z86.010) Active confirmed Vital Signs Blood pressure systolic 00 mm Hg 08/07/20 24 Blood pressure diastolic 00 mm Hg 024 Height 63 in 08/07/2024 Weight 192 lbs 08/07/2024 BMI 34.01 kg/m2 08/07/2024 Encounters Encounter Location Date Provider Diagnosis [facility] [address] [facility] [address] [place] [id number] 08/07/2024 Norberto Mason Chronic constipation K59.09 ; Abnormal finding on GI tract imaging R93.3 and Personal history of colonic polyps Z86.010 Assessments Encounter Date Diagnosis (ICD Code) Assessment Notes Treatment Notes Treatment Clinical Notes Section Notes 08/07/2024 Chronic constipation (ICD-10 - K59.09) No red meat, aspirin, NSAIDs for 1 week before doing the stool cards. Let my office know when you turn them into the lab. Continue the Metamucil with a lot of fluids to help with the constipation. Overall, Waqar appears well from a clinical standpoint and is not having any worrisome GI complaints at the present time. We did review that theoretically she would be due for a followup colonoscopy given the history of a tubular adenoma removed over 5 years ago. However I definitely agree with her that given her abdominal wall hernias with CT scan evidence of the hernia containing loops of bowel, that would put her at increased risk of having the procedure done. As such, the benefits of the screening colonoscopy may very well not outweigh the potential risks of the procedure. Given no particular worrisome GI complaints, a normal CBC, relatively minimal findings on the initial colonoscopy in 2018, and two CT scan that were negative for any sign of colonic neoplasm, the yield on a repeat colonoscopy is most likely low. As such, I advised her that would be best to try to screen her noninvasively. Since she apparently cannot get the Cologuard test done due to Medicare regulations, I have ordered 3 Hemoccult cards for her to do instead. I did instruct her to be sure not to have any red meat for at least a week before and for her to avoid all aspirin and NSAIDs so as to hopefully avoid any false positives. I advised her if the cards are all negative then she would not need any further screening for colorectal cancer. If the cards are positive I advised her that we would have to consider colonoscopy at that point. I advised her to let me know when she turns the cards in and I will be in touch with her as to the results. I did advise her to certainly continue her bowel regimen of Metamucil, as well as stool softeners as needed, to avoid constipation. Waqar was very comfortable with this plan. Thank you again for allowing me to participate in Waqar care's. I shall continue to keep you advised of her progress. 08/07/2024 Abnormal finding on GI tract imaging (ICD-10 - R93.3) Overall, Waqar appears well from a clinical standpoint and is not having any worrisome GI complaints at the present time. We did review that theoretically she would be due for a followup colonoscopy given the history of a tubular adenoma removed over 5 years ago. However I definitely agree with her that given her abdominal wall hernias with CT scan evidence of the hernia containing loops of bowel, that would put her at increased risk of having the procedure done. As such, the benefits of the screening colonoscopy may very well not outweigh the potential risks of the procedure. Given no particular worrisome GI complaints, a normal CBC, relatively minimal findings on the initial colonoscopy in 2018, and two CT scan that were negative for any sign of colonic neoplasm, the yield on a repeat colonoscopy is most likely low. As such, I advised her that would be best to try to screen her noninvasively. Since she apparently cannot get the Cologuard test done due to Medicare regulations, I have ordered 3 Hemoccult cards for her to do instead. I did instruct her to be sure not to have any red meat for at least a week before and for her to avoid all aspirin and NSAIDs so as to hopefully avoid any false positives. I advised her if the cards are all negative then she would not need any further screening for colorectal cancer. If the cards are positive I advised her that we would have to consider colonoscopy at that point. I advised her to let me know when she turns the cards in and I will be in touch with her as to the results. I did advise her to certainly continue her bowel regimen of Metamucil, as well as stool softeners as needed, to avoid constipation. Waqar was very comfortable with this plan. Thank you again for allowing me to participate in Waqar care's. I shall continue to keep you advised of her progress. 08/07/2024 Personal history of colonic polyps (ICD-10 - Z86.010) Overall, Waqar appears well from a clinical standpoint and is not having any worrisome GI complaints at the present time. We did review that theoretically she would be due for a followup colonoscopy given the history of a tubular adenoma removed over 5 years ago. However I definitely agree with her that given her abdominal wall hernias with CT scan evidence of the hernia containing loops of bowel, that would put her at increased risk of having the procedure done. As such, the benefits of the screening colonoscopy may very well not outweigh the potential risks of the procedure. Given no particular worrisome GI complaints, a normal CBC, relatively minimal findings on the initial colonoscopy in 2018, and two CT scan that were negative for any sign of colonic neoplasm, the yield on a repeat colonoscopy is most likely low. As such, I advised her that would be best to try to screen her noninvasively. Since she apparently cannot get the Cologuard test done due to Medicare regulations, I have ordered 3 Hemoccult cards for her to do instead. I did instruct her to be sure not to have any red meat for at least a week before and for her to avoid all aspirin and NSAIDs so as to hopefully avoid any false positives. I advised her if the cards are all negative then she would not need any further screening for colorectal cancer. If the cards are positive I advised her that we would have to consider colonoscopy at that point. I advised her to let me know when she turns the cards in and I will be in touch with her as to the results. I did advise her to certainly continue her bowel regimen of Metamucil, as well as stool softeners as needed, to avoid constipation. Waqar was very comfortable with this plan. Thank you again for allowing me to participate in Waqar care's. I shall continue to keep you advised of her progress. Plan Of Treatment Treatment Notes Assessment Notes Chronic constipation No red meat, aspirin, NSAIDs for 1 week before doing the stool cards. Let my office know when you turn them into the lab. Continue the Metamucil with a lot of fluids to help with the constipation. Pending Test Test Name Order Date Hemoccult Cards (Screening) 08/07/2024 Next Appt Details Follow Up: prn, Reason: Progress Notes * ALEKS PEREYRANEDOB:1950 ( 74 yo F)Acc No.[id number]:08/07/2024 Progress Notes Patient:?WAQAR PEREYRA Provider:?Norberto Mason MD :1950???Age:74 Y???Sex:Female D ate:08/07/2024 Address:[address] [place], [place] [id number] Pcp:MYKE SANDS NP Subjective: * Chief Complaints: * ???Patient presents today fo r a colon screening * HPI: ???incontinence:? I saw Waqar in consultation today in regard to further evaluation of her chronic constipation, personal history of a tubular adenoma of the colon, abnormal CT scans of her GI tract, and discussion of colorectal cancer screening. ?I last saw Waqar in 2018, at which time she underwent her first and only colonoscopy for evaluation of a positive Cologuard test at that time. This revealed only a small tubular adenoma that was removed. The prep was described as somewhat limited due to some stool, but in general it seems that the exam was complete. As you know she has had some constipation in relation to abdominal wall hernias from her previous bowel surgery many years ago. She feels that the hernias are enlarging. She denies any significant abdominal pain, abdominal distention, nausea, vomiting, hematochezia, or melena. She enjoys a good appetite and denies any significant heartburn on her daily omeprazole nor dysphagia. She denies any early satiety nor significant weight loss. She denies any jaundice. She denies any known family history of colon cancer. ?She has seen a couple of surgeons regarding the abdominal wall hernias, but they all felt that given her clinical history of the hernias being asymptomatic it would be best to avoid surgery unless absolutely necessary given the risks involved in regard to surgery. ?She describes her bowel movements are fairly regular as long as she takes Metamucil regularly. ?She did have a CT scan of her abdomen in 2022 describing a large ventral hernia with herniation of small bowel loops, but without any sign of incarceration or obstruction. She did have a CT scan of the abdomen in 2021 describing multiple abdominal wall hernias one of which contained the transverse colon and small bowel at that time but again without any sign of obstruction. ?Due to the finding of a tubular adenoma removed over 5 years ago she was going to do a Cologuard test for further screening rather than a colonoscopy due to all the abdominal wall hernias. However, Medicare would not cover the test due to the fact that she had a previous history of an adenoma removed. Therefore, she came in to see me today to discuss the possibility of a colonoscopy for screening, although she advised me that she really does not want to have that done due to all the abdominal wall hernias and her concerns about possible complications from the colonoscopy. ?Laboratories earlier this year revealed a normal CBC. * ROS:?General/Constitutional:?Change in appetite?denies.?Chills?denies.?Fatigue?denies.?Ophthalmologic:?Comments?left eye is blind.?ENT:?Comments?all negative.?Respiratory:?hemoptysis?denies.?Cough?denies.?Cardiovascular:?Chest pain?denies.?Orthopnea?denies.?Gastrointestinal:?Comments?See HPI for details.?Genitourinary:?Hematuria?denies.?Dysuria?denies.?Musculoskeletal:?Painful joints?denies.?Weakness?denies.?Skin:?Itching?denies.?Rash?denies.?Neurologic:?Headache?denies.?Seizures?denies.?Psychiatric:?Comments?all negative.? * Medical History:? * Surgical History:?Mastectomy radical left--Dr. Pressley--1 positive lymph node 2016Left eye--glaucoma--blind in the left eye 2008Colon resection by Dr. Kingsley for a ruptured colon --had a temporary colostomy--at [facility] 2009Tonsillectomy Age 5C-section * Hospitalization/Major Diagno stic Procedure:?No Hospitalization History. * Family History:?Father: dece ased.?Mother: .? no known hx of colon cancer. * Social History:?Tobacco Use:?Tobacco Use/Smoking?Patient is a?nonsmoker.?Drugs/Alcohol:?Alcohol Screen?Did you have a drink containing alcohol in the past year??Yes,?How often did you have a drink containing alcohol in the past year??Monthly or less (1 point), How often did you have 6 or more drinks on one occasion in the past year??Never (0 point),?Points?1,?Interpretation?Negative.?Miscellaneous:?Marital status: . Occupation: Retired. ???Nonsmoker; very occasional holiday drink. * Medications:?TakingbusPIRone HCl 10 MG Tablet TAKE (2) TABLETS TWICE DAILY. Oral Letrozole 2.5 MG Tablet TAKE (1) TABLET DAILY. Oral Omeprazole 20 MG Capsule Delayed Release TAKE 1 CAPSULE ONCE DAILY 30 MINUTES TO 1 HOUR BEFORE MEALS Oral Lantus SoloStar 100 UNIT/ML Solution Pen-injector INJECT 15 UNITS SUBCUTANEOUSLY EVERY DAY Subcutaneous Levothyroxine Sodium 25 MCG Tablet TAKE ONE TABLET BY MOUTH EVERY DAY Oral Lexapro 20 MG Tablet TAKE ONE TABLET EVERY DAY AT BEDTIME Oral Celecoxib 200 MG Capsule TAKE (1) CAPSULE TWICE DAILY NEEDED. Oral SEROquel XR 300 MG Tablet Extended Release 24 Hour TAKE ONE TABLET AT BEDTIME Oral Rosuvastatin Calcium 20 MG Tablet TAKE (1) TABLET DAILY. Oral Multivitamin Adult - Tablet Orally Biotin 10 MG Capsule Orally Calcium 1 tab Oral Repaglinide 0.5 MG Tablet TAKE ONE TABLET BY MOUTH THREE TIMES DAILY 15-30 MINUTES BEFORE MEALS Oral Ventolin HFA 108 (90 Base) MCG/ACT Aerosol Solution INHALE 2 PUFFS EVERY 6 HOURS NEEDED FOR SHORTNESS OF BREATH OR WHEEZING Inhalation amLODIPine Besylate 2.5 MG Tablet TAKE 1 TABLET BY MOUTH EVERY DAY Oral Taking busPIRone HCl 10 MG Tablet TAKE (2) TABLETS TWICE DAILY. Oral Taking Letrozole 2.5 MG Tablet TAKE (1) TABLET DAILY. Oral Taking Omeprazole 20 MG Capsule Delayed Release TAKE 1 CAPSULE ONCE DAILY 30 MINUTES TO 1 HOUR BEFORE MEALS Oral Taking Lantus SoloStar 100 UNIT/ML Solution Pen-injector INJECT 15 UNITS SUBCUTANEOUSLY EVERY DAY Subcutaneous Taking Levothyroxine Sodium 25 MCG Tablet TAKE ONE TABLET BY MOUTH EVERY DAY Oral Taking Lexapro 20 MG Tablet TAKE ONE TABLET EVERY DAY AT BEDTIME Oral Taking Celecoxib 200 MG Capsule TAKE (1) CAPSULE TWICE DAILY NEEDED. Oral Taking SEROquel XR 300 MG Tablet Extended Release 24 Hour TAKE ONE TABLET AT BEDTIME Oral Taking Rosuvastatin Calcium 20 MG Tablet TAKE (1) TABLET DAILY. Oral Taking Multivitamin Adult - Tablet Orally Taking Biotin 10 MG Capsule Orally Taking Calcium 1 tab Oral Taking Repaglinide 0.5 MG Tablet TAKE ONE TABLET BY MOUTH THREE TIMES DAILY 15-30 MINUTES BEFORE MEALS Oral Taking Ventolin HFA 108 (90 Base) MCG/ACT Aerosol Solution INHALE 2 PUFFS EVERY 6 HOURS NEEDED FOR SHORTNESS OF BREATH OR WHEEZING Inhalation Taking amLODIPine Besylate 2.5 MG Tablet TAKE 1 TABLET BY MOUTH EVERY DAY Oral DiscontinuedmetFORMIN HCl 1000 MG Tablet TAKE ONE TABLET BY MOUTH TWICE DAILY WITH BREAKFAST AND WITH DINNER Oral buPROPion HCl ER (SR) 100 MG Tablet Extended Release 12 Hour TAKE 1 TABLET EVERY DAY IN THE MORNING Oral MiraLax (colon prep) 8.3 ounce ((238) grams Powder 1 packet mixed with 8 ounces of fluid orally begin at 5:00 p.m. the day before the procedureDulcolax (colon prep) 5 MG Tablet Delayed Release take at 3:00 p.m and 7:00p.m. Orally two tablets twice a day for one dayMedication List reviewed and reconciled with the patientDiscontinued metFORMIN HCl 1000 MG Tablet TAKE ONE TABLET BY MOUTH TWICE DAILY WITH BREAKFAST AND WITH DINNER Oral Discontinued buPROPion HCl ER (SR) 100 MG Tablet Extended Release 12 Hour TAKE 1 TABLET EVERY DAY IN THE MORNING Oral Discontinued MiraLax (colon prep) 8.3 ounce ((238) grams Powder 1 packet mixed with 8 ounces of fluid orally begin at 5:00 p.m. the day before the procedureDiscontinued Dulcolax (colon prep) 5 MG Tablet Delayed Release take at 3:00 p.m and 7:00p.m. Orally two tablets twice a day for one dayMedication List reviewed and reconciled with the patient * Allergies:?ether derivatives Codeine Sulfateyes[Allergies Verified] Objective: * Vitals:?Wt: 192 lbs, Ht: 63 in, BMI:34.01 Index, BP: 00/00 mm Hg. * Examination: ???General Examination: ?GENERAL APPEARANCE:?pleasant, well nourished, well developed, in no acute distress.?EYES:?sclera non-icteric.?ORAL CAVITY:?mucosa moist.?NECK/THYROID:?no cervical lymphadenopathy, neck supple.?SKIN:?nonjaundiced, no spider angiomata.?HEART:?S1, S2 normal.?LUNGS:?clear to auscultation bilaterally.?ABDOMEN:?normal bowel sounds, no guarding or rigidity, no guarding or rigidity, no masses palpable, soft, nontender, nondistended.?EXTREMITIES:?no edema.?NEUROLOGIC:?alert and oriented.? Assessment: * Assessment: 1.?Chronic constipation - K5 9.09 (Primary)?2.?Abnormal finding on GI tract imaging - R93.3?3.?Personal history of colonic polyps - Z86.010? Overall, Waqar appears well from a clinical standpoint and is not having any worrisome GI complaints at the present time. We did review that theoretically she would be due for a followup colonoscopy given the history of a tubular adenoma removed over 5 years ago. However I definitely agree with her that given her abdominal wall hernias with CT scan evidence of the hernia containing loops of bowel, that would put her at increased risk of having the procedure done. As such, the benefits of the screening colonoscopy may very well not outweigh the potential risks of the procedure. Given no particular worrisome GI complaints, a normal CBC, relatively minimal findings on the initial colonoscopy in 2018, and two CT scan that were negative for any sign of colonic neoplasm, the yield on a repeat colonoscopy is most likely low. As such, I advised her that would be best to try to screen her noninvasively. Since she apparently cannot get the Cologuard test done due to Medicare regulations, I have ordered 3 Hemoccult cards for her to do instead. I did instruct her to be sure not to have any red meat for at least a week before and for her to avoid all aspirin and NSAIDs so as to hopefully avoid any false positives. I advised her if the cards are all negative then she would not need any further screening for colorectal cancer. If the cards are positive I advised her that we would have to consider colonoscopy at that point. I advised her to let me know when she turns the cards in and I will be in touch with her as to the results. I did advise her to certainly continue her bowel regimen of Metamucil, as well as stool softeners as needed, to avoid constipation. Waqar was very comfortable with this plan. Thank you again for allowing me to participate in Waqar care's. I shall continue to keep you advised of her progress. Plan: * Treatment: Notes: No red meat, aspirin, NSAIDs for 1 week before doing the stool cards. Let my office know when you turn them into the lab. Continue the Metamucil with a lot of fluids to help with the constipation.?? 2.?Abnormal finding on GI tract imaging?LAB: Hemoccult Cards (Screening)* Give 3 cards 3.?Personal history of colonic polyps?LAB: Hemoccult Cards (Screening)* Give 3 cards * Procedure Codes:?3017F COLOR ECTAL CA SCREEN DOC [id number] TOBACCO [id number] BP SCR NOT PRFRM REC REASON NOS * Preventive Medicine:? ??Counseling:?Care goal follow-up plan:?Above Normal BMI Follow-up?Giving encouragement to exercise,?BMI management provided?Yes.? ??Urinary Incontinence:?Urinary Incontinence?Assessment:?Absent,?Plan of care documented:?No, reason not specified.? ??Screenings:?Fall Risk Screening?Fall Risk Assessment:?No falls in the past year,?Screening:?No falls in the past year,?Assessment:?Not performed, no reason specified,?Plan of Care:?Not documented, no reason specified.? * Follow Up:?prn * * Sign off status: Completed true * Provider:?Norberto Mason MD Date:? 024 Generated for Héctor ness/Azul/Geneitting on:?01/31/2025 11:45 AM EDT History and Physical Notes * HPI (History of Present Illness) Category Sub-Category Detail Notes Category Not es incontinence I saw Waqar in consultation today in regard to further evaluation of her chronic constipation, personal history of a tubular adenoma of the colon, abnormal CT scans of her GI tract, and discussion of colorectal cancer screening. I last saw Waqar in 2018, at which time she underwent her first and only colonoscopy for evaluation of a positive Cologuard test at that time. This revealed only a small tubular adenoma that was removed. The prep was described as somewhat limited due to some stool, but in general it seems that the exam was complete. As you know she has had some constipation in relation to abdominal wall hernias from her previous bowel surgery many years ago. She feels that the hernias are enlarging. She denies any significant abdominal pain, abdominal distention, nausea, vomiting, hematochezia, or melena. She enjoys a good appetite and denies any significant heartburn on her daily omeprazole nor dysphagia. She denies any early satiety nor significant weight loss. She denies any jaundice. She denies any known family history of colon cancer. She has seen a couple of surgeons regarding the abdominal wall hernias, but they all felt that given her clinical history of the hernias being asymptomatic it would be best to avoid surgery unless absolutely necessary given the risks involved in regard to surgery. She describes her bowel movements are fairly regular as long as she takes Metamucil regularly. She did have a CT scan of her abdomen in 2022 describing a large ventral hernia with herniation of small bowel loops, but without any sign of incarceration or obstruction. She did have a CT scan of the abdomen in 2021 describing multiple abdominal wall hernias one of which contained the transverse colon and small bowel at that time but again without any sign of obstruction. Due to the finding of a tubular adenoma removed over 5 years ago she was going to do a Cologuard test for further screening rather than a colonoscopy due to all the abdominal wall hernias. However, Medicare would not cover the test due to the fact that she had a previous history of an adenoma removed. Therefore, she came in to see me today to discuss the possibility of a colonoscopy for screening, although she advised me that she really does not want to have that done due to all the abdominal wall hernias and her concerns about possible complications from the colonoscopy. Laboratories earlier this year revealed a normal CBC. Examination Category Sub-Category Detail Notes Category Not es General Examination GENERAL APPEARANCE: pleasant , well nourished, well developed, in no acute distress HEAD: EYES: sclera non-icteric EARS: NOSE: THROAT: NECK/THYROID: no cervical lymphade nopathy, neck supple HEART: S1, S2 normal CHEST: LUNGS: clear to auscultatio n bilaterally ABDOMEN: normal bowel sounds, no guarding or rigidity, no guarding or rigidity, no masses palpable, soft, nontender, nondistended NEUROLOGIC: alert and oriented SKIN: nonjaundiced, no spi zeina angiomata EXTREMITIES: no edema PERIPHERAL PULSES: BACK: BREASTS: MUSCULOSKELETAL: MALE GENITOURINARY: LYMPH NODES: RECTAL EXAM: FEMALE GENITOURINARY: ORAL CAVITY: mucosa moist
--- OUTSIDE RECORDS SUMMARY | 2025-01-31 11:45 | XMS_ITS | Clinical Summary ---
Author Organization [facility] Address [address] [place] [address] Care Team Providers Care Stock Crane Operator Name Role Phone Valerie Young MARY Primary Care Provider [phone] Source Comments PLEASE NOTE, if this patient is a minor, it may be UNLAWFUL to discuss sensitive information that is contained in these records (such as FAMILY PLANNING, MENTAL HEALTH or SUBSTANCE ABUSE) with the minor patient's parent or other person without the patient's specific authorization.[facility] Allergies Active Allergy Reactions Criticality Noted Date Comments Codeine Medications busPIRone (BUSPAR) 10 mg tablet 5 5 Active DOC-Q-LACE 100 mg capsule TAKE ONE CAPSULE BY MOUTH TWICE DAILY 60 Cap 3 5 Active buPROPion (WELLBUTRIN SR) 100 mg 12 hr tablet TK 1 T PO QD IN THE MORNING 4 6 Active metFORMIN (GLUCOPHAGE) 500 mg tabletIndicatio ns:Type 2 diabetes mellitus without complication, without long-term current use of insulin ([facility]) Take 1 Tab by mouth 2 (two) times daily with a meal 180 Tab 0 7 Active QUEtiapine (SEROQUEL XR) 400 mg 24 hr tablet Take 1 Tab by mouth nightly at bedtime Swallow whole. Do not break, crush or chew. 90 Tab 0 7 Active celecoxib (CELEBREX) 200 mg capsule Take 1 Cap by mouth 2 (two) times daily 180 Cap 0 7 Active LEXAPRO 20 mg tablet Take 1 Tab by mouth once daily 30 Tab 3 7 Active esomeprazole (NEXIUM) [address] capsule Take 1 Cap by mouth every morning before breakfast 30 Cap 3 7 Active rosuvastatin (CRESTOR) 10 mg tablet Take 1 Tab by mouth once daily 90 Tab 0 7 Active levothyroxine (SYNTHROID, LEVOTHROID) 25 mcg tablet Take 1 Tab by mouth once daily 90 Tab 1 8 Active Active Problems Problem Noted Date Diagnosed Date Type 2 diabetes mellitus wit hout complication, without long-term current use of insulin ([facility]) 09/16/2016 Malignant neoplasm of left female breast (HCC-CM S) 09/16/2016 Overview (10/08/2016): [place] [facility] [place] infiltrating ductal carcinoma And lobular carcinoma of L breast Osteopenia 09/09/2016 Overview (09/09/2016): Based on DXA bone scan 08/27/16 Ptosis of left eyelid repaired 11/12/2015 11/28/19 16 Overview (11/28/2015): Repaired of left upper lid Dr Magnus Gauthier Left breast mass 11/05/2015 Overview (12/25/2015): Mammo 11/04/2015 showed cluster of microcalcification left breast. Needs Biopsy. Referral for biopsy done. 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 Pt sees [facility]. Left ductal carcinoma in situ. Underwent left axillary sentinel node biop sy,left modified radical mastectomy,right breast biopsy with needle localization at [facility] 12/16/2015 S/P right breast biopsy 11/21/2014 Overview (11/21/2014): Done 11/11/2014. Right Breast posterolateral : stereotactic core biopsy aggregate of adenosis,microcyst and mild ductal hyperplasia with microcalcification - negative for malignancy Anteromedial: stereotactic core biopsy intraductal papilloma with moderate ductal hyperplasia without atypia and associated microcalcification- no malignancy GERD (gastroesophageal reflux disease) 3 Depression 05/08/2013 Overview (07/11/2015): Pt sees Psychiat[facility] for medciation Hypercholesteremia 05/08/2013 Shoulder arthritis 05/08/2013 Hypothyroidism 05/08/2013 Normal colonoscopy 05/08/2013 Overview (05/08/2013): Done 2009 Resolved Problems Problem Noted Date Diagnosed Date Resolved Date Malignant neoplasm of nipple of left breast in female (HCC-CMS) 09/16/2016 09/16/2016 Immunizations Immunization Administration Dates Next Due INFLUENZA, SEASONAL, INJECTABLE 07/11/2015,07/06 PNEUMOCOCCAL CONJUGATE PCV 13 10/13/2015 TDAP 05/02/2015 Family History Relation Name Status Comments Father Mother Social History Tobacco Use Types Packs/Day Years Used Date Smoking Tobacco: Never Alcohol Use Standard Drinks/Week Comments No 0 (1 standard drink = 0.6 oz pur e alcohol) Social Connections Answer Date Recorded Social Connections and Isolation 0 06/02/2019 Financial Resource Strain Answer Date R ecorded Financial Resource Strain 0 2018 Stress Answer Date Recorded Stress 0 06/02/2019 Physical Activity Answer Date Recorded Physical Activity 0 06/02/2019 Food Insecurity Answer Date Recorded Food 0 06/02/2019 Transportation Needs Answer Date Record ed Transportation 0 06/02/2019 Housing Stability Answer Date Recorded Housing 0 06/02/2019 Safety and Environment Answer Date Mesfin rded Safety 0 06/02/2019 Utilities Answer Date Recorded Utilities 0 06/02/2019 Employment Answer Date Recorded Employment 0 06/02/2019 Comments No Sex and Gender Information Value Date Recorded Sex Assigned at Not on file Legal Sex Female 11:36 AM PDT Gender Identity Not on file Sexual Orientation Not on file Last Filed Vital Signs Vital Sign Reading Time Taken Comments Blood Pressure 110/68 09/16/2016 11:03 AM EST Pulse 64 09/16/2016 11:03 AM EST Temperature 36.3 ??C (97.4 ??F) 09/16/2016 11:[address] Respiratory Rate 14 09/16/2016 11:03 AM EST Oxygen Saturation - - Inhaled Oxygen Concentration - - Weight 93.4 kg (206 lb) 09/16/2016 11:03 AM EST Height 157.5 cm (5' 2 ) 09/16/2016 11:03 AM EST Body Mass Index 37.68 09/16/2016 11:03 AM EST Plan of Treatment Not on file Insurance [place] Subscriber Plan / Payer (Ef fective 2014-Present) Name:Trudy Pereyra Relation to Subscriber:Self Name:Trudy Pereyra Payer ID:[id number] Group ID:Not on file Type:Medicaid Address: [address] [employer]AF[employer]Y [place] DENTAL [place] Care Teams Stock Crane Operator Relationship Specialty Start Date End Date Valerie Young FNP [address] [place] [id number] PCP - General 12/05/18
--- OUTSIDE RECORDS SUMMARY | 2025-01-31 11:45 | XMS_ITS ---
Author Organization [facility] Address [address] [place] [address] Care Team Providers Care Journeyman Meat Cutter Name Role Phone WICHO FISH, MYKE Primary Care Provider Norberto Hernandez [phone] REASON FOR VISIT Patient presents today for a discuss colonoscopy Encounters Encounter Location Date Provider Diagnosis [facility] [address] [place] [address] 05/04/2024 Norberto Mason Plan Of Treatment No Information Progress Notes * ALEKS MAHONEYNEDOB:1950 ( 74 yo F)Acc No.[id number]:05/04/2024 Progress Notes Patient:?RODDY WAQAR Provider:?Norberto Mason MD :1950???Age:73 Y???Sex:Female D ate:05/04/2024 Address:[address] [place] [address] [address] , [place], [place] Pcp:MYKE SANDS NP Subjective: * Chief Complaints: * ???1. Patient presents today for a discuss colonoscopy. * Medical History:? Objective: * Vitals:? Assessment: Plan: * Treatment: * * The named appointment provid er may or may not be the originator of this progress note, and it is not deemed complete until electronically signed by the appointment provider. Sign off status: Pending * Provider:?Norberto Mason MD Date:? 024 Generated for Héctor ness/Azul/eTransmitting on:?01/31/2025 11:45 AM EDT
--- OUTSIDE RECORDS SUMMARY | 2025-01-31 11:45 | XMS_ITS ---
Author Organization [facility] Address [address] [place] [address] Care Team Providers Care Convolute Tube Winder Name Role Phone MYKE SANDS NP Primary Care Provider Norberto Hernandez [phone] Encounters Encounter Location Date Provider Diagnosis [facility] [address] [place] [address] 01/10/2024 Norberto Mason Plan Of Treatment No Information Progress Notes * ALEKS PEREYRANEDOB:1950 ( 73 yo F)Acc No.[id number]:01/10/2024 Patient:?WAQAR PEREYRA :1950???Age:73 Y???Sex:Female Address:[address] , [place], [address] * true * Date:? Generated for Printi ng/Fajulissag/eTransmitting on:?01/31/2025 11:44 AM EDT
--- OUTSIDE RECORDS SUMMARY | 2025-01-31 11:45 | XMS_ITS | Patient Health Record ---
Author Organization [facility] Address [address] [place] [address] Care Team Providers Care Business Administrator Name Role Phone MYKE SANDS NP Primary Care Provider Norberto Hernandez Unavailable [phone] Allergies Allergen (clinical drug ingredient) Drug/Non Drug Allergy documented on EMR Reaction Allergy Type Onset Date Status codeine Codeine Sulfate Unknown Drug Allergy A ctive ether derivatives (uncoded) Unknown Allergy Active Results Component Value Reference Range Notes OBSX3 Reviewed date:11/07/2024 09:00:07 AM Interpretation: Performing Lab:[facility], [address] [place] [id number] Notes/Report: OBS1 NEGATIVE NEGATIVE OBS Date 1 10/26/24 OBS2 NEGATIVE NEGATIVE OBS Date 2 10/27/24 OBS3 NEGATIVE NEGATIVE OBS Date 3 10/28/24 Reason For Referral No Information Medications Medication SIG (Take, Route, Frequency, Duration) Notes Start Date End Date Status Letrozole 2.5 MG TAKE (1) TABLET MARYBETH Y. Oral for 30 Active busPIRone HCl 10 MG TAKE (2) TABLETS TWI CE DAILY. Oral for 30 Active Calcium 1 tab Oral Active Biotin 10 MG Orally Active Multivitamin Adult - Orally Active Rosuvastatin Calcium 20 MG TAKE (1) [...] MOUTH EVERY DAY Oral for 30 Active Lantus SoloStar 100 UNIT/ML INJECT 15 UNITS SUBCUTANEOUSLY EVERY DAY Subcutaneous for 90 Active amLODIPine Besylate 2.5 MG TAKE 1 TABLET BY MOUTH EVERY DAY Oral for 90 Active Omeprazole 20 MG TAKE 1 CAPSULE ONCE DAILY 30 MINUTES TO 1 HOUR BEFORE MEALS Oral for 30 Active Ventolin HFA 108 (90 Base) MCG/ACT INHALE 2 PUFFS EVERY 6 HOURS NEEDED FOR SHORTNESS OF BREATH OR WHEEZING Inhalation for 25 Activ e Repaglinide 0.5 MG TAKE ONE TABLET BY M OUT THREE TIMES DAILY 15-30 MINUTES BEFORE MEALS Oral for 30 Active Social [...] Notes: Nonsmoker; very occasional h oliday drink Nonsmoker; very occasional h oliday drink Problems Problem Type SNOMED Code ICD Code Onset Dates Problem Status W/U Status Risk Notes Problem 812111407 Encounter for screening for malignant neoplasm of colon (Z12.11) Active confirmed Problem History of polyp of colon (situation) (986392890) Personal history of colonic polyps (Z86.010) Active confirmed Problem 856886809 Preprocedural examination (Z01.818) Active confirmed Problem Imaging of gastrointestinal tract abnormal (finding) (590507539) Abnormal finding on GI tract imaging (R93.3) Active confirmed Problem Chronic constipation (592022036) Chronic constipation (K59.09) Active confirmed Vital Signs Blood pressure diastolic 00 mm Hg 08/07/2024 Height 63 in 08/07/2024 Blood pressure systolic 00 mm Hg 08/07/2024 Weight 192 lbs 08/07/2024 BMI 34.01 kg/m2 08/07/2024 Encounters Encounter Location Date Provider Diagnosis [facility] [address] [place] [phone] 08/07/2024 Norberto Mason Chronic constipation K59.09 ; Abnormal finding on GI tract imaging R93.3 and Personal history of colonic polyps Z86.010 Assessments Encounter Date Diagnosis (ICD Code) Assessment Notes Treatment Notes Treatment Clinical Notes Section Notes 08/07/2024 Abnormal finding on GI tract imaging [...] keep you advised of her progress. 08/07/2024 Chronic constipation (ICD-10 - K59.09) No [...] for allowing me to participate in [facility]'s. I shall continue to keep you advised [...] advised of her progress. Plan Of Treatment Pending Test Test Name Order Date Hemoccult Cards (Screening) 08/07/2024 Future Test Test Name Order Date COLONOSCOPY 09/20/2017 Insurance Providers Payer Name Payer Address Payer Phone Subscriber Number Group Number Insured Name Patient Relationship to Insured Coverage Start Date Coverage End Date MEDICARE OF [place] [address] [place] [id number] WAQAR PEREYRA Self - patient is the insured MEDICAID OF [facility] [address] [place] [address] [id number] WAQAR PEREYRA Self - patient is the insured Medical (General) History Medical History History ICD Code Hypothyroidism Breast cancer with mastectomy as below-- then chemo and XRT with Dr. Alicea Depression and anxiety IDDM Denies GA,CVA,Lung disease,renal disease Hyperlipidemia Asthma - mild intermittent Colonoscopy in 2018 with removal of a sm all tubular adenoma Surgical History Surgery Date(Month/Year) Mastectomy radical left--Dr. 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 Austyn peterson for a ruptured colon --had a temporary colostomy--at [facility] 2009 Tonsillectomy Age 5 Hospitalization History Reason Date(Month/Year)
== END 2025-01-31 10:57 | disposition home or self-care (01) ==
LOC: HO.HMCH 10:13
PROVIDERS: PCP Internal Medicine; Visit Provider Physician Assistant Medical
DX: E11.9 Type 2 diabetes mellitus without complications (principal); F31.9 Bipolar disorder, unspecified; Z09 Encounter for follow-up examination after completed treatment for conditions other than malignant neoplasm; K43.9 Ventral hernia without obstruction or gangrene; K21.9 Gastro-esophageal reflux disease without esophagitis; E78.00 Pure hypercholesterolemia, unspecified; I10 Essential (primary) hypertension; E03.9 Hypothyroidism, unspecified; E66.811 Obesity, class 1; Z68.33 Body mass index [BMI] 33.0-33.9, adult

== ENCOUNTER → 2025-01-31 10:12 | Outpatient (BNVA) | payer MEDICARE, MEDICAID, SELFPAY | PROVIDERS: PCP Internal Medicine; Visit Provider Physician Assistant Medical | DX: Z09 Encounter for follow-up examination after completed treatment for conditions other than malignant neoplasm (principal); H91.90 Unspecified hearing loss, unspecified ear; K43.9 Ventral hernia without obstruction or gangrene; K21.9 Gastro-esophageal reflux disease without esophagitis; E78.00 Pure hypercholesterolemia, unspecified; I10 Essential (primary) hypertension; E11.9 Type 2 diabetes mellitus without complications; E03.9 Hypothyroidism, unspecified; F31.9 Bipolar disorder, unspecified; E66.811 Obesity, class 1; Z68.33 Body mass index [BMI] 33.0-33.9, adult; Z71.3 Dietary counseling and surveillance | CPT/HCPCS: 83036; 96127; 99212 ==

== ENCOUNTER 2025-02-02 08:47 | Outpatient (REF) | payer MEDICARE, MEDICAID, SELFPAY ==
--- OUTSIDE RECORDS SUMMARY | 2025-02-02 08:49 | XMS_ITS | Clinical Summary ---
Author Organization [facility] Address [address] [place] [address] Care Team Providers Care Boiler Assistant Operator Name Role Phone Valerie Young MARY Primary Care Provider [phone] Source Comments PLEASE NOTE, if this patient [...] complication, without long-term current use of insulin ([facility]) Take 1 Tab by mouth 2 (two) [...] complication, without long-term current use of insulin ([facility]) 09/16/2016 Malignant neoplasm of left female breast (HCC-CM S) 09/16/2016 Overview (10/08/2016): [place] [facility] [place]al carcinoma And lobular carcinoma of L breast Osteopenia 09/09/2016 Overview (09/09/2016): Based on DXA bone scan 08/27/16 Ptosis of left eyelid repaired 11/12/2015 11/28/19 16 Overview (11/28/2015): Repaired of left upper lid Dr Mganus Gauthier Left breast mass 11/05/2015 Overview (12/25/2015): Mammo 11/04/2015 showed cluster of microcalcification left breast. Needs Biopsy. Referral for biopsy done. 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 Pt sees [facility]. Left ductal carcinoma in situ. Underwent left axillary sentinel node biop sy,left modified radical mastectomy,right breast biopsy with needle localization at [facility] 12/16/2015 S/P right breast biopsy 11/21/2014 Overview (11/21/2014): Done 11/11/2014. Right Breast posterolateral : stereotactic core biopsy aggregate of adenosis,microcyst and mild ductal hyperplasia with microcalcification - negative for malignancy Anteromedial: stereotactic core biopsy intraductal papilloma with moderate ductal hyperplasia without atypia and associated microcalcification- no malignancy GERD (gastroesophageal reflux disease) 3 Depression 05/08/2013 Overview (07/11/2015): Pt sees Psychiatry [facility] for medciation Hypercholesteremia 05/08/2013 Shoulder arthritis [...] Not on file Insurance [place] Subscriber Plan / Payer (Ef fective 2014-Present) Name:Trudy Pereyra Relation to Subscriber:Self Name:Trudy Pereyra Payer ID:[id number] Group ID:Not on file Type:Medicaid Address: [address] SAFETY [place] DENTAL [place] Care Teams Boiler Assistant Operator Relationship Specialty Start Date End Date Valerie Young FNP [address] [place] [id number] PCP - General 12/05/18
[2025-02-02 11:14] LABS: Cholesterol 150 mg/dL (<200); HDL Cholesterol 41 mg/dL (>40); LDL Cholesterol Calculated 85 mg/dL (<100); Magnesium 1.8 mg/dL (1.6-2.6); Triglycerides 124 mg/dL (<150)
[2025-02-02 11:42] LABS: Folate > 20.0 ng/mL (> or = 4.0); Vitamin B12 529 pg/mL (200-900)
== END 2025-02-02 08:48 | disposition home or self-care (01) ==
LOC: HO.LAB 08:47
PROVIDERS: PCP Internal Medicine; Visit Provider Physician Assistant Medical
DX: Z00.00 Encounter for general adult medical examination without abnormal findings (principal); Z13.220 Encounter for screening for lipoid disorders; Z13.29 Encounter for screening for other suspected endocrine disorder
CPT/HCPCS: 36415; 80061; 82306; 82607; 82746; 83735; 84443

== ENCOUNTER 2025-04-01 12:19 | Outpatient (REF) | payer MEDICARE, MEDICAID, SELFPAY ==
--- NOTE | ~2025-04-01 | MM_ITS ---
EXAMINATION: MM SCREENING DIGITAL BREAST TOMOSYNTHESIS, RIGHT CLINICAL INFORMATION: Screening. Asymptomatic. History of left breast cancer status post mastectomy. COMPARISON: Mammography: This study is compared with prior exams dating back to TECHNIQUE: Digital breast tomosynthesis is performed in both the craniocaudal and mediolateral oblique views along with computer-aided detection (CAD). Synthesized 2D images are generated from the tomosynthesis. FINDINGS: There are scattered areas of fibroglandular density (ACR BI-RADS breast composition Category b). Marker clip. There are no significant masses, abnormal calcifications, or other abnormalities. MM/MM tomosynthesis screening RT IMPRESSION: No mammographic evidence of malignancy. ASSESSMENT: BI-RADS BI-RADS 2 - Benign Findings RECOMMENDATION: Routine annual mammography screening. 1 year F/U This examination should not preclude the clinical evaluation of a suspicious palpable abnormality. This patient's information was entered into a reminder system with a target due date for their next mammogram. Electronically signed by: Afshan Brand DO 04/05/2025 03:00 PM EDT
--- OUTSIDE RECORDS SUMMARY | 2025-04-01 13:40 | XMS_ITS | Patient Health Record ---
Author Organization [facility] Address [address] [place] [address] Care Team Providers Care Hide Trimmer Name Role Phone MYKE SANDS NP Primary Care Provider Norberto Hernandez Unavailable [phone] Allergies Allergen (clinical drug ingredient) Drug/Non Drug Allergy documented on EMR Reaction Allergy Type Onset Date Status codeine Codeine Sulfate Unknown Drug Allergy A ctive ether derivatives (uncoded) Unknown Allergy Active Results Component Value Reference Range Notes OBSX3 Reviewed date:11/07/2024 09:00:07 AM Interpretation: Performing Lab:[facility], [address] [place] [id number] Notes/Report: OBS1 NEGATIVE NEGATIVE OBS Date 1 [...] Problem Status W/U Status Risk Notes Problem 706614351 Encounter for screening for malignant neoplasm of colon (Z12.11) Active confirmed Problem History of polyp of colon (situation) (189412066) Personal history of colonic polyps (Z86.010) Active confirmed Problem 056157813 Preprocedural examination (Z01.818) Active confirmed Problem Abnormal finding on GI tract imaging (R93.3) Active confirmed Problem Chronic constipation (938011458) Chronic constipation (K59.09) Active confirmed Vital Signs Blood pressure diastolic 00 mm Hg 08/07/2024 Height 63 in 08/07/2024 Blood pressure systolic 00 mm Hg 08/07/2024 Weight 192 lbs 08/07/2024 BMI 34.01 kg/m2 08/07/2024 Encounters Encounter Location Date Provider Diagnosis [facility] [address] [place] [address] 08/07/2024 Norberto Mason Chronic constipation K59.09 ; [...] Date MED[place]ARE OF [place] [address] [place] [id number] WAQAR PEREYRA Self - patient is the insured MEDICAID OF [facility] [address] [place] [address] [id number] WAQAR PEREYRA Self - patient is the insured Medical (General) History Medical History History ICD Code Hypothyroidism Breast cancer with mastectomy as below-- then chemo and XRT with Dr. Alicea Depression and anxiety IDDM Denies DE,CVA,Lung disease,renal disease Hyperlipidemia Asthma - mild intermittent Colonoscopy in 2018 with removal of a sm all tubular adenoma Surgical History Surgery Date(Month/Year) Mastectomy radical left--Dr. 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 Austyn peterson for a ruptured colon --had a temporary colostomy--at [facility] 2009 Tonsillectomy Age 5 Hospitalization History Reason Date(Month/Year)
== END 2025-04-01 12:20 | disposition home or self-care (01) ==
LOC: HO.MAMMO 12:19
PROVIDERS: PCP Physician Assistant Medical; Visit Provider Physician Assistant Medical
DX: Z12.31 Encounter for screening mammogram for malignant neoplasm of breast (principal)
CPT/HCPCS: 77063; 77067

== ENCOUNTER → 2025-04-01 12:30 | Outpatient (BNV) | payer MEDICARE, MEDICAID, SELFPAY | PROVIDERS: PCP Physician Assistant Medical; Visit Provider Internal Medicine | DX: Z12.31 Encounter for screening mammogram for malignant neoplasm of breast (principal) | CPT/HCPCS: 77063; 77067 ==

== ENCOUNTER 2025-08-01 14:11 | Outpatient (AMB) | payer MEDICARE, MEDICAID, SELFPAY ==
--- OUTSIDE RECORDS SUMMARY | 2024-05-04 10:40 | XMS_ITS ---
Author Organization [facility] Address [address] [place] [phone] Care Team Providers Care Wrapper Stripper Name Role Phone MYKE SANDS NP Primary Care Provider Norberto Hernandez [phone] REASON FOR VISIT Patient presents today for a discuss colonoscopy Encounters Encounter Location Date Provider Diagnosis [facility] [address] [place] [phone] 05/04/2024 Norberto Mason Plan Of Treatment No Information Progress Notes * DENZELALEKSNEDOB:1950 ( 75 yo F)Acc No.[id number]:05/04/2024 Progress Notes Patient: WAQAR DENG Provider: Aspen Mason MD :1950 A ge:73 Y S ex:Female Date:05/04/2024 Address:[address] [place] [address] [address] , [place], [id number] Pcp:MYKE SANDS NP Subjective: * Chief Complaints: * 1 . Patient presents today for a discuss colonoscopy. * Medical History: Objective: * Vitals: Assessment: Plan: * Treatment: * * The named appointment provid er may or may not be the originator of this progress note, and it is not deemed complete until electronically signed by the appointment provider. Sign off status: Pending * Provider: Aspen Mason MD Date: 0 05/04/2024 Generated for Héctor ness/Azul/eTransmitting on: 1 06:03 PM EDT
--- NOTE | 2025-08-01 14:25 | MHC.PC.OV ---
Vital Signs 08/01/25 14:27 Height 5 ft 2 in Weight 186 lb 6 oz BMI 34.1 BP 114/66 Blood Pressure Location Lt brachial Position Sitting Pulse 74 Pulse Source Pulse Oximeter Temp 96.9 F Temp Source Temporal Artery Scan Pulse Oximetry (%) 94 Oxygen Delivery Method Room Air Intake Visit Reasons: 6 month f/u - see comments Intake Note: Patient is here to follow up on DM, OA, HTN, Hypothyroidism. Tie Inspector Required: No Body And Frame Man: Not Required per policy Accompanied by: Self / Same As Patient Allergies ether (ETHER) Allergy (Severe, Verified 08/01/25 14:27) DIFFICULT EMERGENCE ANESTHESIA codeine (CODEINE) Allergy (Intermediate, Verified 08/01/25 14:27) VOMITING Tobacco use date assessed: 08/01/25 Fall risk assessment: 2 + Falls in past year Last assessed Fall Risk: 08/01/25 Dental Screening Dental Screen Date: 01/31/25 [facility] Medical History (Updated 01/31/25 @ 11:09 by Teresa Alba PA-C) Class 1 obesity with body mass index (BMI) of 33.0 to 33.9 in adult Follow-up exam, 3-6 months since previous exam Decreased hearing Hiatal hernia Pre-op evaluation Dyspnea on exertion Cataract, right eye Tubular adenoma of colon Primary generalized (osteo)arthritis Surgical History History of colonoscopy (~01/26/18) History of cataract surgery History of mastectomy S/P colon resection History of section Family History Father No problems noted. Mother No problems noted. Social History Household Members: Family Housing: Condominium Are you a primary primary care physician to a significant other at home: No Do you presently have visiting nurse or other home services: No Alcohol intake: current Alcohol intake frequency: holidays/special occasions only Patient Tobacco Use Status: Never used Tobacco e-Cigarette/Vaping Use: Never Used Second Hand Smoke Exposure: No service: No Current occupational status: retired Current occupation: Medical billing Current occupational exposures/hazards: No Cognitive needs: No Hearing needs: No Vision needs: No Questionnaire PHQ-9 Over the last 2 weeks, how often have you been bothered by any of the following problems? 1. Little interest or pleasure in doing things: several days 2. Feeling down, depressed, or hopeless: several days 3. Trouble falling or staying asleep, or sleeping too much: several days 4. Feeling tired or having little energy: several days 5. Poor appetite or overeating: several days 6. Feeling bad about yourself - or that you are a failure or have let yourself or your family down: several days 7. Trouble concentrating on things, such as reading the newspaper or watching television: not at all 8. Moving or speaking so slowly that other people could have noticed. Or the opposite - being so fidgety or restless that you have been moving around a lot more than usual: not at all 9. Thoughts that you would be better off or of hurting yourself in some way: not at all Total score: 6 Depression Screening Interpretation: Positive Depression Screening Done: Yes Source: Developed by Drs. Norberto Crump, Alia Cortez, Darron Joseph and colleagues, with an educational alfie from [employer]. Thrive Questionnaire Date Thrive assessed: 07/25/25 I am a: Patient What is your living situation today?: I have a steady place to live Within the past 12 months, did the food you bought not last and you didn't have the money to get more?: Often true Within the past 12 months, did you worry whether your food would run out before you got money to buy more?: Often true Do you have trouble paying for medicines?: No Do you have trouble getting transportation to medical appointments?: Yes Do you have trouble paying your heating and electricity bill?: Yes Do you have trouble taking care of your child, family member or friend?: No Do you have trouble with day-to-day activities such as bathing, preparing meals, shopping, managing finances, etc.?: No Are you currently unemployed and looking for a job?: No Are you interested in more education?: No Please select the resources that you would like help with: Transportation Currently or been in a relationship where the following occur: No concerns reported THRIVE Score: 4 AUDIT C Alcohol Use Questionnaire (AUDIT-C) 1. How often do you have a drink containing alcohol?: Monthly or less Total Score: 1 LUNA-7 AMB Questionnaire LUNA-7 Date LUNA - 7 assessed: 01/31/25 Feeling nervous, anxious, or on edge: 1 = Several days Not being able to stop or control worryin = Several days Worrying too much about different things: 1 = Several days Trouble relaxin = Not at all Being so restless that it is hard to sit still: 0 = Not at all Becoming easily annoyed or irritable: 0 = Not at all Feeling afraid as if something awful might happen: 0 = Not at all Total LUNA-7 score (0-4 normal; 5-9 mild; 10-14 moderate; 15-21 severe): 3 Source: Developed by Drs. Norberto Crump, Alia Cortez, Darron Joseph and colleagues, with an educational alfie from [employer]. Physical exam (Primary Care) Tobacco/Smoking Status: Tobacco use Status Tobacco use date assessed 01/31/25 01/31/25 10:35 Patient Tobacco Use Status Never used Tobacco 01/31/25 10:35 e-Cigarette/Vaping Use Never Used 01/31/25 10:35 Depression Screening Interpretation: Positive Thrive Assessment: Date of Thrive Assessment Date Thrive assessed 07/25/25 07/25/25 13:26 Currently or been in a relationship where the following occur: No concerns reported Results AMB Hemoglobin A1c AMB Hemoglobin A1c 7.3 % Last Edit by CHALO Gomez on 08/01/25 14:46 Coding Assessment & Plan Assessment & Plan Orders: Orders AMB Hemoglobin A1c Today E11.9 - Type 2 diabetes mellitus without complications Medications: Refilled repaglinide 2 mg PO BID 90 days 180 tabs 1RF levothyroxine 50 mcg PO DAILY 90 tabs 1RF
[2025-08-01 14:27] VITALS: BP 114/66; PULSE 74; TEMP 36.1; O2SAT 94; BMI 34.1
--- OUTSIDE RECORDS SUMMARY | 2025-08-01 18:03 | XMS_ITS | Patient Health Record ---
Author Organization [facility] Address [address] [place] [address] Care Team Providers Care Rn Referral Name Role Phone MYKE SANDS NP Primary Care Provider Norberto Hernandez Unavailable [phone] Allergies Allergen (clinical drug ingredient) Drug/Non Drug Allergy documented on EMR Reaction Allergy Type Onset Date Status codeine Codeine Sulfate Unknown Drug Allergy A ctive ether derivatives (uncoded) Unknown Allergy Active Results Component Value Reference Range Notes OBSX3 Reviewed date:11/07/2024 09:00:07 AM Interpretation: Performing Lab:[facility], [address] [place] [id number] Notes/Report: OBS1 NEGATIVE NEGATIVE OBS Date 1 10/26/24 OBS2 NEGATIVE NEGATIVE OBS Date 2 10/27/24 OBS3 NEGATIVE NEGATIVE OBS Date 3 10/28/24 Reason For Referral No Information Medications Medication SIG (Take, Route, Frequency, Duration) Notes Start Date End Date Status Letrozole 2.5 MG TAKE (1) TABLET MARYBETH Y. Oral; Duration: 30 Active busPIRone HCl 10 MG TAKE (2) TABLETS TWI CE DAILY. Oral; Duration: 30 Active Calcium 1 tab Oral Active Biotin 10 MG Orally Active Multivitamin Adult - Orally Active Rosuvastatin Calcium 20 MG TAKE (1) TABL ET DAILY. Oral; Duration: 30 Active SEROquel XR 300 MG TAKE ONE TABLET AT B EDTIME Oral; Duration: 30 Active Celecoxib 200 MG TAKE (1) CAPSULE TWI CE DAILY NEEDED. Oral; Duration: 30 Active Lexapro 20 MG TAKE ONE TABLET EVER Y DAY AT BEDTIME Oral; Duration: 30 Active Levothyroxine Sodium 25 MCG TAKE ONE TABLET BY MOUTH EVERY DAY Oral; Duration: 30 Active Lantus SoloStar 100 UNIT/ML INJECT 15 UNITS SUBCUTANEOUSLY EVERY DAY Subcutaneous; Duration: 90 Activ e amLODIPine Besylate 2.5 MG TAKE 1 TABLET BY MOUTH EVERY DAY Oral; Duration: 90 Active Omeprazole 20 MG TAKE 1 CAPSULE ONCE DAILY 30 MINUTES TO 1 HOUR BEFORE MEALS Oral; Duration: 30 Active Ventolin HFA 108 (90 Base) MCG/ACT INHALE 2 PUFFS EVERY 6 HOURS NEEDED FOR SHORTNESS OF BREATH OR WHEEZING Inhalation; Duration: 25 Active Repaglinide 0.5 MG TAKE ONE TABLET BY M OUT THREE TIMES DAILY 15-30 MINUTES BEFORE MEALS Oral; Duration: 30 Active Social History Tobacco Use: Social [...] Problem Status W/U Status Risk Notes Problem Screening for malignant neoplasm of colon (258837848) Encounter for screening for malignant neoplasm of colon (Z12.11) Active confirmed Problem History of polyp of colon (situation) (267714349) Personal history of colonic polyps (Z86.010) Active confirmed Problem Preprocedural examination (309649616982947) Preprocedural examination (Z01.818) Active confirmed Problem Imaging of gastrointestinal tract abnormal (finding) (551350324) Abnormal finding on GI tract imaging (R93.3) Active confirmed Problem Chronic constipation (519224563) Chronic constipation (K59.09) Active confirmed Vital Signs Blood pressure diastolic 00 mm Hg 08/07/2024 Height 63 in 08/07/2024 Blood pressure systolic 00 mm Hg 08/07/2024 Weight 192 lbs 08/07/2024 BMI 34.01 kg/m2 08/07/2024 Encounters Encounter Location Date Provider Diagnosis [facility] [address] [place] [address] 08/07/2024 Norberto Mason Chronic constipation K59.09 ; [...] [place] [address] [place] [address] [id number] WAQAR PEREYRA Self - patient is the insured MEDICAID OF [facility] [address] [place] [address] [id number] WAQAR PEREYRA Self - patient is the insured Medical (General) History Medical History History ICD Code Hypothyroidism Breast cancer with mastectomy as below-- then chemo and XRT with Dr. Alicea Depression and anxiety IDDM Denies MD,CVA,Lung disease,renal disease Hyperlipidemia Asthma - mild intermittent Colonoscopy in 2018 with removal of a sm all tubular adenoma Surgical History Surgery Date(Month/Year) Mastectomy radical left--Dr. 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 Austyn peterson for a ruptured colon --had a temporary colostomy--at [facility] 2008 Tonsillectomy Age 5 Hospitalization History Reason Date(Month/Year)
--- OUTSIDE RECORDS SUMMARY | 2025-08-01 18:03 | XMS_ITS | Clinical Summary ---
Author Organization [facility] Address [address] [place] [address] Care Team Providers Care Jewel Oliving Machine Operator Name Role Phone Valerie Young MARY Primary Care Provider [phone] Source Comments PLEASE NOTE, if this patient [...] complication, without long-term current use of insulin Take 1 Tab by mouth 2 (two) [...] complication, without long-term current use of insulin 09/16/2016 Malignant neoplasm of left female breast 016 Overview (10/08/2016): Pt is being seen [place] [facility] for infiltrating ductal carcinoma And lobular carcinoma [...] situ High grade solid type. Pt sees [facility]. Left ductal carcinoma in situ. Underwent left axillary sentinel node biop sy,left modified radical mastectomy,right breast biopsy with needle localization at [facility] 12/16/2015 S/P right breast biopsy 11/21/2014 Overview (11/21/2014): Done 11/11/2014. Right Breast posterolateral : stereotactic core biopsy aggregate of adenosis,microcyst and mild ductal hyperplasia with microcalcification - negative for malignancy Anteromedial: stereotactic core biopsy intraductal papilloma with moderate ductal hyperplasia without atypia and associated microcalcification- no malignancy GERD (gastroesophageal reflux disease) 3 Depression 05/08/2013 Overview (07/11/2015): Pt sees [facility] for medciation Hypercholesteremia 05/08/2013 Shoulder arthritis 05/08/2013 Hypothyroidism 05/08/2013 Normal colonoscopy 05/08/2013 Overview (05/08/2013): Done 2009 Resolved Problems Problem Noted Date Diagnosed Date Resolved Date Malignant neoplasm of nipple of left breast in female 09/16/2016 09/16/2016 Immunizations Immunization Administration Dates Next [...] 64 09/16/2016 11:03 AM EST Temperature 36.3 C (97.4 F) 09/16/2016 11:03 AM EST Respiratory Rate 14 09/16/2016 11:03 AM EST Oxygen Saturation - - Inhaled Oxygen Concentration - - Weight 93.4 kg (206 lb) 09/16/2016 11:03 AM EST Height 157.5 cm (5' 2 ) 09/16/2016 11:03 AM EST Body Mass Index 37.68 09/16/2016 11:03 AM EST Plan of Treatment Not on file Insurance [place] Subscriber Plan / Payer (Ef fective 2014-Present) Name:RoddyGudeliane Relation to Subscriber:Self Name:RoddyGudeliane Payer ID:[id number] Group ID:Not on file Type:Medicaid Address: [address] SAFETY NET DENTAL MEDICARE - [place] [employer] [place] Care Teams Jewel Oliving Machine Operator Relationship Specialty Start Date End Date Valerie Young FNP [address] [place] [address] [facility] - General 12/05/18
== END 2025-08-01 14:57 | disposition home or self-care (01) ==
LOC: HO.HMCH 14:12
PROVIDERS: PCP Internal Medicine; Visit Provider Internal Medicine
DX: E11.9 Type 2 diabetes mellitus without complications (principal)

== ENCOUNTER → 2025-08-01 14:11 | Outpatient (BNVA) | payer MEDICARE, MEDICAID, SELFPAY | PROVIDERS: PCP Internal Medicine; Visit Provider Internal Medicine | DX: E11.9 Type 2 diabetes mellitus without complications (principal); I10 Essential (primary) hypertension; E03.9 Hypothyroidism, unspecified; M19.90 Unspecified osteoarthritis, unspecified site | CPT/HCPCS: 83036; 96127; 99212 ==

== ENCOUNTER 2025-09-07 09:16 | Outpatient (REF) | payer MEDICARE, MEDICAID, SELFPAY ==
--- OUTSIDE RECORDS SUMMARY | 2024-05-04 09:40 | XMS_ITS ---
Author Organization [facility] Address [address] [place] [id number] Care Team Providers Care Arc Welding Machine Operator Name Role Phone MYKE SANDS NP Primary Care Provider Norberto Hernandez [phone] REASON FOR VISIT Patient presents today for a discuss colonoscopy Encounters Encounter Location Date Provider Diagnosis [facility] [address] [place] [phone] 05/04/2024 Norberto Mason Plan Of Treatment No Information Progress Notes * ALEKS PEREYRANEDOB:1950 ( 75 yo F)Acc No.[id number]:05/04/2024 Progress Notes Patient: WAQAR DENG Provider: Aspen Mason MD :1950 A ge:73 Y S ex:Female Date:05/04/2024 Address:[address] [place], [place] [address]Jose Miguel [facility] [address] , [place], [id number] Pcp:MYKE SANDS NP Subjective: * Chief Complaints: * P atient presents today for a discuss colonoscopy * The named appointment provid er may or may not be the originator of this progress note, and it is not deemed complete until electronically signed by the appointment provider. Sign off status: Pending * Provider: Aspen Mason MD Date: 0 05/04/2024 Generated for Printi ng/Faxing/eTransmitting on: 11/07/2024 09:19 AM EST
--- OUTSIDE RECORDS SUMMARY | 2025-09-07 09:19 | XMS_ITS | Patient Health Record ---
Author Organization [facility] Address [address] [place] [address] Care Team Providers Care Truck Manager Name Role Phone MYKE SANDS NP Primary Care Provider Norberto Hernandez Unavailable [phone] Allergies Allergen (clinical drug ingredient) Drug/Non Drug Allergy documented on EMR Reaction Allergy Type Onset Date Status Information temporarily unavailable ether derivatives (uncoded) Unknown Allergy Active Information temporarily unavailable Codeine Sulfate Unknown Drug Allergy Active Results Component Value Reference Range Notes OBSX3 Reviewed date:11/07/2024 09:00:07 AM Interpretation: Performing Lab:[facility], [address] [place] [id number] Notes/Report: OBS1 NEGATIVE NEGATIVE OBS Date 1 10/26/24 OBS2 NEGATIVE NEGATIVE OBS Date 2 10/27/24 OBS3 NEGATIVE NEGATIVE OBS Date 3 10/28/24 Reason For Referral No Information Medications Medication SIG (Take, Route, Frequency, Duration) Notes Start Date End Date Status Letrozole 2.5 MG Tablet TAKE (1) TABLET DAILY. Oral; Duration: 30 Active busPIRone HCl 10 MG Tablet TAKE (2) TABL ETS TWICE DAILY. Oral; Duration: 30 Active Calcium 1 tab Oral Active Biotin 10 MG Capsule Orally Active Multivitamin Adult - Tablet Orally Active Rosuvastatin Calcium 20 MG Tablet TAKE (1) TABLET DAILY. Oral; Duration: 30 Active SEROquel XR 300 MG Tablet Extended Release 24 Hour TAKE ONE TABLET AT BEDTIME Oral; Duration: 30 Active Celecoxib 200 MG Capsule TAKE (1) CAPSUL E TWICE DAILY NEEDED. Oral; Duration: 30 Active Lexapro 20 MG Tablet TAKE ONE TABLET VIVIAN RY DAY AT BEDTIME Oral; Duration: 30 Active Levothyroxine Sodium 25 MCG Tablet TAKE ONE TABLET BY MOUTH EVERY DAY Oral; Duration: 30 Active Lantus SoloStar 100 UNIT/ML Solution Pen-injector INJECT 15 UNITS SUBCUTANEOUSLY EVERY DAY Subcutaneous; Duration: 90 Activ e amLODIPine Besylate 2.5 MG Tablet TAKE 1 TABLET BY MOUTH EVERY DAY Oral; Duration: 90 Active Omeprazole 20 MG Capsule Delayed Release TAKE 1 CAPSULE ONCE DAILY 30 MINUTES TO 1 HOUR BEFORE MEALS Oral; Duration: 30 Active Ventolin HFA 108 (90 Base) MCG/ACT Aerosol Solution INHALE 2 PUFFS EVERY 6 HOURS NEEDED FOR SHORTNESS OF BREATH OR WHEEZING Inhalation; Duration: 25 Active Repaglinide 0.5 MG Tablet TAKE ONE TABLE T BY MOUTH THREE TIMES DAILY 15-30 MINUTES BEFORE MEALS Oral; Duration: 30 Active Social History Tobacco Use: Social History Observation Description Date Details (start date - stop date) Never Smoker NA - NA Social History Drugs/Alcohol: Social Info Question Answer Notes Alcohol Screen Did you have a drink containing alcohol in the past year? Yes How often did you have a drink containing alcohol in the past year? Monthly or less (1 point) How often did you have 6 or more drinks on one occasion in the past year? Never (0 point) Points 1 Interpretation Negative Tobacco Use: Social Info Question Answer Notes Tobacco Use/Smoking Patient is a nonsmoker Additional Details Category Social Info Options Details Miscellaneous: Marital status: Occupation: Retired Section Notes: Nonsmoker; very occasional h oliday drink Nonsmoker; very occasional h oliday drink Problems Problem Type SNOMED Code ICD Code Onset Dates Problem Status W/U Status Risk Notes Problem Information temporarily unavailable Encounter for screening for malignant neoplasm of colon (Z12.11) Active confirmed Problem Information temporarily unavailable Personal history of colonic polyps (Z86.010) Active confirmed Problem Information temporarily unavailable Preprocedural examination (Z01.818) Active confirmed Problem Information temporarily unavailable Abnormal finding on GI tract imaging (R93.3) Active confirmed Problem Information temporarily unavailable Chronic constipation (K59.09) Active confirmed Plan Of Treatment Pending Test Test Name Order Date Hemoccult Cards (Screening) 08/07/2024 Future Test Test Name Order Date COLONOSCOPY 09/20/2017 Insurance Providers Payer Name Payer Address Payer Phone Subscriber Number Group Number Insured Name Patient Relationship to Insured Coverage Start Date Coverage End Date MEDICARE OF [place] [address] [place] [id number] [phone] [id number] WAQAR PEREYRA Self - patient is the insured [facility] [address] [place] [phone] [id number] WAQAR PEREYRA Self - patient is the insured Medical (General) History Medical History History ICD Code Hypothyroidism Breast cancer with mastectomy as below-- then chemo and XRT with Dr. Alicea Depression and anxiety IDDM Denies [place],CVA,Lung disease,renal disease Hyperlipidemia Asthma - mild intermittent Colonoscopy in 2018 with removal of a sm all tubular adenoma Surgical History Surgery Date(Month/Year) Mastectomy radical left--Dr. 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 Austyn peterson for a ruptured colon --had a temporary colostomy--at [facility] 2008 Tonsillectomy Age 5 Hospitalization History Reason Date(Month/Year)
[2025-09-07 10:54] LABS: Appearance Urine Clear; Glucose Urine UA Negative (Negative); PH 6.5 (5.0-9.0); Specific Gravity - Urine 1.025 (1.005-1.025); UMIC TRIGGER UA YES
[2025-09-07 11:02] LABS: Alanine Aminotransferase 25 U/L (0-31); Albumin Level 4.1 g/dL (3.5-5.0); Alkaline Phosphatase 68 U/L (39-117); Aspartate Amino Transferase 22 U/L (5-31); Cholesterol 145 mg/dL (<200); HDL Cholesterol 39 mg/dL (>40); Total Protein 6.1 g/dL (6.5-8.0); Triglycerides 145 mg/dL (<150)
[2025-09-07 11:19] LABS: Thyroid Stimulating Hormone 1.94 uIU/mL (0.32-4.0)
== END 2025-09-07 09:17 | disposition home or self-care (01) ==
LOC: HO.LAB 09:16
PROVIDERS: PCP Internal Medicine; Visit Provider Internal Medicine
DX: Z13.6 Encounter for screening for cardiovascular disorders (principal); M19.90 Unspecified osteoarthritis, unspecified site; Z13.1 Encounter for screening for diabetes mellitus; Z13.29 Encounter for screening for other suspected endocrine disorder
CPT/HCPCS: 36415; 80061; 80076; 81001; 83036; 84443; 86140